=== PATIENT | female | born 1990 | race Two or more races ===

== ENCOUNTER → 2021-07-12 08:37 | Outpatient (CLI) | payer OTHER, SELFPAY | PROVIDERS: PCP Internal Medicine; Referring Provider Internal Medicine; Visit Provider Internal Medicine | DX: E55.9 Vitamin D deficiency, unspecified (principal) | CPT/HCPCS: 36415; 82306 ==

== ENCOUNTER → 2021-07-28 13:51 | Outpatient (CLI) | payer OTHER, SELFPAY ==
--- NOTE | 2021-07-28 13:54 | US_ITS ---
STUDY: ULTRASOUND OF THE FEMALE PELVIS - COMPLETE REASON FOR EXAM: Female, 31 years old. AUB LMP: Unknown. TECHNIQUE: Transabdominal and Transvaginal TECHNICAL QUALITY: Adequate. COMPARISON: None. FINDINGS: The uterus is anteverted and is in a midline position. The uterus measures 7.2 cm x 4.5 cm x 3.6 cm. Normal uterine cervix. The endometrium measures 3.8 mm in thickness, and is hyperechoic. There is no demonstrated endometrial mass. There is no demonstrated myometrial mass. I.U.D. - The patient does have an I.U.D. The right ovary is visualized. The right ovary measures 2.9 cm x 2.3 cm x 1.5 cm. There is no right ovarian cyst or ovarian mass. There is no visualized right adnexal mass or complex lesion. There is normal arterial and normal venous vascularity. The left ovary is visualized. The left ovary measures 2.5 cm x 1.9 cm x 1.0 cm. There is no left ovarian cyst or ovarian mass. There is no visualized left adnexal mass or complex lesion. There is normal arterial and normal venous vascularity. There is minimal fluid in the cul-de-sac. The pre void volume of the bladder was 445 ml. US/Pelvic (Non ) IMPRESSION: Normal female pelvis. Electronically Signed: Damaso Khan MD at 15:25 EDT , Service support ,
--- NOTE | 2021-07-28 13:54 | US_ITS ---
STUDY: ULTRASOUND OF THE FEMALE PELVIS - COMPLETE REASON FOR EXAM: Female, 31 years old. AUB LMP: Unknown. TECHNIQUE: Transabdominal and Transvaginal TECHNICAL QUALITY: Adequate. COMPARISON: None. FINDINGS: The uterus is anteverted and is in a midline position. The uterus measures 7.2 cm x 4.5 cm x 3.6 cm. Normal uterine cervix. The endometrium measures 3.8 mm in thickness, and is hyperechoic. There is no demonstrated endometrial mass. There is no demonstrated myometrial mass. I.U.D. - The patient does have an I.U.D. The right ovary is visualized. The right ovary measures 2.9 cm x 2.3 cm x 1.5 cm. There is no right ovarian cyst or ovarian mass. There is no visualized right adnexal mass or complex lesion. There is normal arterial and normal venous vascularity. The left ovary is visualized. The left ovary measures 2.5 cm x 1.9 cm x 1.0 cm. There is no left ovarian cyst or ovarian mass. There is no visualized left adnexal mass or complex lesion. There is normal arterial and normal venous vascularity. There is minimal fluid in the cul-de-sac. The pre void volume of the bladder was 445 ml. US/Transvaginal Non- IMPRESSION: Normal female pelvis. Electronically Signed: Damaso Khan MD at 15:25 EDT , Service support ,
== END ==
PROVIDERS: PCP Internal Medicine; Referring Provider Obstetrics & Gynecology; Visit Provider Obstetrics & Gynecology
DX: N93.9 Abnormal uterine and vaginal bleeding, unspecified (principal)
CPT/HCPCS: 76830; 76856

== ENCOUNTER → 2021-08-08 | Outpatient (CLI) | payer OTHER, SELFPAY ==
[2021-08-11 14:13] LABS: HPV Reflexed? NOT INDICATED
== END | disposition home or self-care (01) ==
PROVIDERS: PCP Internal Medicine; Referring Provider Obstetrics & Gynecology; Visit Provider Obstetrics & Gynecology
DX: Z12.4 Encounter for screening for malignant neoplasm of cervix (principal)
CPT/HCPCS: 88175; G0145

== ENCOUNTER → 2021-08-30 13:24 | Outpatient (CLI) | payer OTHER, SELFPAY ==
[2021-08-30 14:40] LABS: Absolute Lymphocyte Count 2.05 X10^3/uL (0.83-4.51); Absolute Neutrophil Count 4.6 X10^3/uL (2.0-7.7); Basophil# 0.04 X10^3/uL; Basophil% 0.5 % (0-1); Eosinophil# 0.08 X10^3/uL; Eosinophils% 1.1 % (0-5); Hematocrit 41.4 % (37-47); Lymphocyte # 2.05 X10^3/ul (0.83-4.51); Lymphocyte % 27.7 % (19-41); Mean Corp Hgb Conc 33.8 g/dL (32-36); Mean Corpuscular Hgb 31.7 pg (27.0-32.0); Mean Corpuscular Volume 93.7 fL (81-99); Mean Platelet Vol. 9.8 fl (6.2-12.0); Monocyte# 0.57 X10^3/uL; Monocyte% 7.7 % (0-10); NRBC Flagged by Analyzer 0 % (0-5); Neutrophil # 4.63 X10^3/uL (2.7-7.7); Neutrophil % 62.6 % (47-70); Platelet Count 260 K/mm3 (150-450); RBC Distribution Width CV 12.7 % (11.6-14.6); RBC Distribution Width SD 43.8 fl (35.1-43.9); Red Blood Count 4.42 M/mm3 (4.2-5.4); White Blood Count 7.4 K/mm3 (4.4-11.0)
[2021-08-30 15:14] LABS: Estradiol 92.6 pg/mL; Follicle Stimulating Hormone 5.1 mIU/mL; Thyroid Stim Hormone (TSH) 1.11 uIU/mL (0.358-3.74)
[2021-09-02 12:37] LABS: Testosterone Free 2.5 pg/mL (0.0-4.2)
== END ==
PROVIDERS: PCP Internal Medicine; Referring Provider Obstetrics & Gynecology; Visit Provider Obstetrics & Gynecology
DX: N93.9 Abnormal uterine and vaginal bleeding, unspecified (principal); Z13.29 Encounter for screening for other suspected endocrine disorder
CPT/HCPCS: 36415; 82627; 82670; 83001; 84402; 84443; 85025; 82626

== ENCOUNTER → 2022-03-27 | Outpatient (CLI) | payer OTHER, SELFPAY ==
[2022-03-27 18:35] LABS: hCG Titer Quant., Serum 11879 mIU/mL (1-3)
== END | disposition home or self-care (01) ==
PROVIDERS: PCP Internal Medicine; Referring Provider Obstetrics & Gynecology; Visit Provider Obstetrics & Gynecology
DX: N96 Recurrent pregnancy loss (principal)
CPT/HCPCS: 36415; 84702

== ENCOUNTER → 2022-04-11 | Outpatient (CLI) | payer OTHER, SELFPAY ==
[2022-04-11 18:10] LABS: Amphetamine Urine VISTA NEGATIVE (<1000 ng/mL); Barbiturate Urine VISTA NEGATIVE (< 200 ng/mL); Benzodiazepine Urine VISTA NEGATIVE (< 200 ng/mL); Cocaine Urine VISTA NEGATIVE (< 300 ng/mL); Ecstacy Urine VISTA NEGATIVE (< 500 ng/mL); Methadone Urine VISTA NEGATIVE (< 300 ng/mL); PCP Urine VISTA NEGATIVE (< 25 ng/mL); THC Urine VISTA NEGATIVE (< 50 ng/mL); Vista UDS pH Range 6
[2022-04-17 11:26] LABS: Chlamydia By Nucleic Acid AMP Negative (Negative)
[2022-04-17 18:12] LABS: Gonococcus By Nucleic Acid AMP Negative (Negative)
== END | disposition home or self-care (01) ==
PROVIDERS: PCP Internal Medicine; Visit Provider Obstetrics & Gynecology
DX: Z34.90 Encounter for supervision of normal pregnancy, unspecified, unspecified trimester (principal)
CPT/HCPCS: 80307; 87086; 87088; 87491; 87591

== ENCOUNTER → 2022-04-28 | Outpatient (CLI) | payer OTHER, SELFPAY ==
[2022-04-28 15:14] LABS: Absolute Lymphocyte Count 1.81 X10^3/uL (0.83-4.51); Absolute Neutrophil Count 6.3 X10^3/uL (2.0-7.7); Basophil# 0.03 X10^3/uL; Basophil% 0.3 % (0-1); Eosinophil# 0.08 X10^3/uL; Eosinophils% 0.9 % (0-5); Hematocrit 36.6 % (37-47); Hemoglobin 12.6 g/dL (12.0-15.0); Lymphocyte # 1.81 X10^3/ul (0.83-4.51); Lymphocyte % 20.3 % (19-41); Mean Corp Hgb Conc 34.4 g/dL (32-36); Mean Corpuscular Volume 92.9 fL (81-99); Mean Platelet Vol. 9.9 fl (6.2-12.0); Monocyte# 0.69 X10^3/uL; Monocyte% 7.8 % (0-10); NRBC Flagged by Analyzer 0 % (0-5); Neutrophil # 6.26 X10^3/uL (2.7-7.7); Neutrophil % 70.4 % (47-70); Platelet Count 226 K/mm3 (150-450); RBC Distribution Width CV 12.9 % (11.6-14.6); RBC Distribution Width SD 44.2 fl (35.1-43.9); Red Blood Count 3.94 M/mm3 (4.2-5.4); White Blood Count 8.9 K/mm3 (4.4-11.0)
[2022-04-28 16:36] LABS: HIV - WCH Non-Reactive (Nonreactive); Hepatitis B Surface Antigen Non-Reactive (Nonreactive); Hepatitis C Antibody Non-Reactive (Nonreactive); Rubella IgG Reactive (Nonreactive); Syphilis Antibodies Non-reactive
== END | disposition home or self-care (01) ==
LOC: LAB 14:17
PROVIDERS: PCP Internal Medicine; Referring Provider Obstetrics & Gynecology; Visit Provider Obstetrics & Gynecology
DX: Z34.90 Encounter for supervision of normal pregnancy, unspecified, unspecified trimester (principal)
CPT/HCPCS: 36415; 85025; 86703; 86762; 86780; 86803; 86850; 86900; 86901; 87340

== ENCOUNTER → 2022-05-03 | Outpatient (CLI) | payer OTHER, SELFPAY ==
--- NOTE | 2022-05-03 18:19 | US_ITS ---
STUDY: FIRST TRIMESTER OBSTETRICAL ULTRASOUND (TWINS) REASON FOR EXAM: Female, 32 years old. BLEEDING / TWINS TECHNIQUE: Transvaginal US was obtained to better visualized the ovaries. TECHNICAL QUALITY: Adequate. PRIOR ULTRASOUND: None. FINDINGS: There are two demonstrated intrauterine gestational sacs. There is a single identified placenta, without a ?twin peak? sign, indicating a probable monochorionic . There is a thin amniotic membrane (1mm), indicating a probable monoamniotic . The estimated gestation age (EGA) by LMP is 10 weeks, 6 days. The estimated date of delivery (DEWEY) by LMP is 1.19.23. BABY A The mean sac diameter (MSD) measure 48mm, indicating an estimated gestational age (EGA) of 10 weeks, 2 days. There is no demonstrated yolk sac. There is visualization of an embryo. The crown-rump length (CRL) measures 47mm, indicating an estimated gestational age (EGA) of 11 weeks, 2 days. The estimated gestation age (EGA) by US is 10 weeks, 5 days. The estimated date of delivery (DEWEY) by US is 1.20.23. There is demonstrated cardiac activity with a heart rate 173 bpm. BABY B The mean sac diameter (MSD) measure 49 mm, indicating an estimated gestational age (EGA) of 10 weeks, 4 days. There is no demonstrated yolk sac. There is visualization of an embryo. The crown-rump length (CRL) measures 41 mm, indicating an estimated gestational age (EGA) of 10 weeks, 5 days. The estimated gestation age (EGA) by US is 10 weeks, 4 days. The estimated date of delivery (DEWEY) by US is 1.21.23. There is demonstrated cardiac activity with a heart rate 180 bpm. MATERNAL ANATOMY The uterus measures 10 x 8.9 cm. There is no demonstrated uterine fibroid. The cervix is closed. The right ovary measures 3.2 cm. There is no right ovarian cyst. There is no visualized right adnexal mass or complex lesion. The left ovary measures 4.3 cm. Simple cyst measures 19 mm. No follow-up required. There is no visualized left adnexal mass or complex lesion. There is no fluid in the cul de sac. US/Init OB < 14Wks US IMPRESSION: Twin live . BABY A There is demonstrated cardiac activity with a heart rate 173 bpm. BABY B There is demonstrated cardiac activity with a heart rate 180 bpm. Electronically Signed: Bruno Engle MD at 19:45 EDT ,
== END | disposition home or self-care (01) ==
PROVIDERS: PCP Internal Medicine; Visit Provider Obstetrics & Gynecology
DX: O46.90 Antepartum hemorrhage, unspecified, unspecified trimester (principal)
CPT/HCPCS: 76801

== ENCOUNTER → 2022-05-04 | Outpatient (CLI) | payer OTHER, SELFPAY ==
[2022-05-04 15:44] LABS: NATERA MAILED SPECIMEN
== END | disposition home or self-care (01) ==
LOC: LAB 14:41
PROVIDERS: PCP Internal Medicine; Visit Provider Obstetrics & Gynecology
DX: O28.5 Abnormal chromosomal and genetic finding on antenatal screening of mother (principal)
CPT/HCPCS: 36415

== ENCOUNTER 2022-07-27 12:20 | Outpatient (CLI) | payer OTHER, SELFPAY ==
[2022-07-27 12:22] VITALS: BP 118/64; PULSE 51; TEMP 36.7; O2SAT 100
[2022-07-27 12:38] VITALS: BMI 23.8
[2022-07-27] MEDS: Betamethasone/Betamethasone 30 MG/5 ML Vial 12 MG IM (12:45)
--- NOTE | 2022-07-28 09:54 | OB.TRI.PN ---
Progress Notes Date of Service: 07/27/22 Progress Note: celestone given for prematurity
== END 2022-07-27 12:50 | disposition home or self-care (01) ==
LOC: WPOUT 12:23 → WP 12:24
PROVIDERS: PCP Internal Medicine; Referring Provider Obstetrics & Gynecology; Visit Provider Obstetrics & Gynecology
DX: O47.9 False labor, unspecified (principal)
CPT/HCPCS: 96372; 99218; G0378; J0702

== ENCOUNTER 2022-07-28 12:15 | Outpatient (CLI) | payer OTHER, SELFPAY ==
[2022-07-28] MEDS: Betamethasone/Betamethasone 30 MG/5 ML Vial 12 MG IM (12:39)
--- NOTE | 2022-07-31 00:21 | OB.TRI.PN ---
Progress Notes Date of Service: 07/28/22 Progress Note: celestone given for prematurity
== END 2022-07-28 12:45 | disposition home or self-care (01) ==
LOC: WPOUT 12:19 → WP 12:27
PROVIDERS: PCP Internal Medicine; Referring Provider Obstetrics & Gynecology; Visit Provider Obstetrics & Gynecology
DX: O60.02 Preterm labor without delivery, second trimester (principal); Z3A.24 24 weeks gestation of pregnancy
CPT/HCPCS: 96372; 99218; G0378; J0702

== ENCOUNTER → 2022-08-07 | Outpatient (CLI) | payer OTHER, SELFPAY ==
--- NOTE | 2022-08-07 16:39 | US_ITS ---
INDICATION: twin gestation -- Weekly BPP on Mondays beginning 08/05/22 EXAMINATION: Ultrasound US Biophysical Profile W/O Nonst Ultrasound additional gestation greater than 14 weeks. TECHNIQUE: Transabdominal pelvic ultrasound was performed with biophysical profile for twin gestation. Multiple still and cine images obtained. COMPARISON: May 03, 2022. Provided EGA: 24 weeks 4 days correlating with 11/23/2022 delivery date FINDINGS: INTRAUTERINE GESTATION(s): Twin live gestation. CERVIX: Cervix is obscured by cranial shadow. Fetus A: HEART MOTION is 147 bpm. AMNIOTIC FLUID: Deepest vertical pocket 2.9 cm PLACENTA: Posterior, grade 1 without evidence of abruption or previa. PRESENTATION: Cephalic BIOPHYSICAL PROFILE (BPP): 6/8 -- Breathin/2. -- Movement: 2/2. -- Tone: 2/2. --DEANNA: 2/2. Fetus B: HEART MOTION is 145 bpm. AMNIOTIC FLUID: Deepest vertical pocket 3.9 cm PLACENTA: Posterior, grade 1 without evidence of abruption or previa. PRESENTATION: Cephalic BIOPHYSICAL PROFILE (BPP): 8/8 -- Breathin/2. -- Movement: 2/2. -- Tone: 2/2. --DEANNA: 2/2. IMPRESSION: Live twin gestation with normal heart rate. Abnormal twin A biophysical profile 6 out of 8 with 0 for breathing. Normal twin B biophysical profile. Placenta is posterior, without appreciable separation on ultrasound images. Electronically Signed: Charles Ribera MD at 4:04 EDT , INDICATION: twin gestation -- Weekly BPP on Mondays beginning 08/05/22 EXAMINATION: Ultrasound US Biophysical Profile W/O Nonst Ultrasound additional gestation greater than 14 weeks. TECHNIQUE: Transabdominal pelvic ultrasound was performed with biophysical profile for twin gestation. Multiple still and cine images obtained. COMPARISON: May 03, 2022. Provided EGA: 24 weeks 4 days correlating with 11/23/2022 delivery date FINDINGS: INTRAUTERINE GESTATION(s): Twin live gestation. CERVIX: Cervix is obscured by cranial shadow. Fetus A: HEART MOTION is 147 bpm. AMNIOTIC FLUID: Deepest vertical pocket 2.9 cm PLACENTA: Posterior, grade 1 without evidence of abruption or previa. PRESENTATION: Cephalic BIOPHYSICAL PROFILE (BPP): 04/12 -- Breathin/2. -- Movement: 2/2. -- Tone: 2/2. --DEANNA: 2/2. Fetus B: HEART MOTION is 145 bpm. AMNIOTIC FLUID: Deepest vertical pocket 3.9 cm PLACENTA: Posterior, grade 1 without evidence of abruption or previa. PRESENTATION: Cephalic BIOPHYSICAL PROFILE (BPP): 06/12 -- Breathin/2. -- Movement: 2/2. -- Tone: 2/2. --DEANNA: 2/2. US/Biophysical Prof W/O Non Stres IMPRESSION: Live twin gestation with normal heart rate.. Abnormal twin A biophysical profile 6 out of 8 with 0 for breathing. Normal twin B biophysical profile. Placenta is posterior, without appreciable separation on ultrasound images. Electronically Signed: Charles Ribera MD at 4:04 EDT ,
--- NOTE | 2022-08-07 17:48 | US_ITS ---
INDICATION: twin gestation -- Weekly BPP on Mondays beginning 08/05/22 EXAMINATION: Ultrasound US Biophysical Profile W/O Nonst Ultrasound additional gestation greater than 14 weeks. TECHNIQUE: Transabdominal pelvic ultrasound was performed with biophysical profile for twin gestation. Multiple still and cine images obtained. COMPARISON: May 03, 2022. Provided EGA: 24 weeks 4 days correlating with 11/23/2022 delivery date FINDINGS: INTRAUTERINE GESTATION(s): Twin live gestation. CERVIX: Cervix is obscured by cranial shadow. Fetus A: HEART MOTION is 147 bpm. AMNIOTIC FLUID: Deepest vertical pocket 2.9 cm PLACENTA: Posterior, grade 1 without evidence of abruption or previa. PRESENTATION: Cephalic BIOPHYSICAL PROFILE (BPP): 6/8 -- Breathin/2. -- Movement: 2/2. -- Tone: 2/2. --DEANNA: 2/2. Fetus B: HEART MOTION is 145 bpm. AMNIOTIC FLUID: Deepest vertical pocket 3.9 cm PLACENTA: Posterior, grade 1 without evidence of abruption or previa. PRESENTATION: Cephalic BIOPHYSICAL PROFILE (BPP): 8/8 -- Breathin/2. -- Movement: 2/2. -- Tone: 2/2. --DEANNA: 2/2. IMPRESSION: Live twin gestation with normal heart rate. Abnormal twin A biophysical profile 6 out of 8 with 0 for breathing. Normal twin B biophysical profile. Placenta is posterior, without appreciable separation on ultrasound images. Electronically Signed: Charles Ribera MD at 4:04 EDT , INDICATION: twin gestation -- Weekly BPP on Mondays beginning 08/05/22 EXAMINATION: Ultrasound US Biophysical Profile W/O Nonst Ultrasound additional gestation greater than 14 weeks. TECHNIQUE: Transabdominal pelvic ultrasound was performed with biophysical profile for twin gestation. Multiple still and cine images obtained. COMPARISON: May 03, 2022. Provided EGA: 24 weeks 4 days correlating with 11/23/2022 delivery date FINDINGS: INTRAUTERINE GESTATION(s): Twin live gestation. CERVIX: Cervix is obscured by cranial shadow. Fetus A: HEART MOTION is 147 bpm. AMNIOTIC FLUID: Deepest vertical pocket 2.9 cm PLACENTA: Posterior, grade 1 without evidence of abruption or previa. PRESENTATION: Cephalic BIOPHYSICAL PROFILE (BPP): 04/12 -- Breathin/2. -- Movement: 2/2. -- Tone: 2/2. --DEANNA: 2/2. Fetus B: HEART MOTION is 145 bpm. AMNIOTIC FLUID: Deepest vertical pocket 3.9 cm PLACENTA: Posterior, grade 1 without evidence of abruption or previa. PRESENTATION: Cephalic BIOPHYSICAL PROFILE (BPP): 06/12 -- Breathin/2. -- Movement: 2/2. -- Tone: 2/2. --DEANNA: 2/2. US/Biophysical Prof W/O Non Stres IMPRESSION: Live twin gestation with normal heart rate.. Abnormal twin A biophysical profile 6 out of 8 with 0 for breathing. Normal twin B biophysical profile. Placenta is posterior, without appreciable separation on ultrasound images. Electronically Signed: Chalres Ribera MD at 4:04 EDT ,
== END | disposition home or self-care (01) ==
LOC: OPUS 16:38 → US 16:38
PROVIDERS: PCP Internal Medicine; Referring Provider Obstetrics & Gynecology; Visit Provider Obstetrics & Gynecology
DX: O43.122 Velamentous insertion of umbilical cord, second trimester (principal); O43.022 Fetus-to-fetus placental transfusion syndrome, second trimester; O30.002 Twin pregnancy, unspecified number of placenta and unspecified number of amniotic sacs, second trimester; Z3A.24 24 weeks gestation of pregnancy
CPT/HCPCS: 76819

== ENCOUNTER 2022-08-08 13:10 | Outpatient (CLI) | payer OTHER, SELFPAY ==
[2022-08-08 13:37] VITALS: PULSE 69; O2SAT 98
[2022-08-08 13:38] VITALS: BP 128/69; PULSE 68; TEMP 37.3
[2022-08-08 13:42] VITALS: BMI 24.0
--- NOTE | 2022-08-08 13:47 | US_ITS ---
STUDY: OBSTETRICAL ULTRASOUND - BIOPHYSICAL PROFILE REASON FOR EXAM: Female, 32 years old abnormal ultrasound. Possible twin to twin transfusion. BPP yesterday baby A is 8/, baby B 6/, no breathing. LMP: 02/16/2022 PRIOR ULTRASOUND: 08/07/2022 TECHNIQUE: Transabdominal TECHNICAL QUALITY: Adequate. FINDINGS: There is a twin intrauterine . Baby A lies to the maternal left in cephalic presentation.. There is demonstrated cardiac activity with a heart rate of 147 bpm. There is a normal amniotic fluid volume. The largest amniotic fluid pocket measures 6.2 cm. The placenta is posterior in location and is not low lying. There are Grade 1 placental changes. Age by LMP: 24 weeks, 5 days. DEWEY by LMP: 11/23/2022. age by prior US: 24 weeks, 5 days. DEWEY by prior US: 11/23/2022. BIOPHYSICAL PROFILE: Breathing Movements (FBM): 2 Gross Body Movements (GBM): 2 Tone (FT): 2 Amniotic Fluid Volume (AFV): 2 TOTAL SCORE: 8 / 8 Baby B lies on the maternal right in a transverse position.. There is demonstrated cardiac activity with a heart rate of 136 bpm. There is a normal amniotic fluid volume. The largest amniotic fluid pocket measures 4.1 cm. . The placenta is posterior in location and is not low lying. There are Grade 1 placental changes. Age by LMP: 24 weeks, 5 days. DEWEY by LMP: 11/23/2022.. age by prior US: 24 weeks, 5 days. DEWEY by prior US: 11/23/2022.. BIOPHYSICAL PROFILE: Breathing Movements (FBM): 2 Gross Body Movements (GBM): 2 Tone (FT): 2 Amniotic Fluid Volume (AFV): 2 TOTAL SCORE: 8 / 8 US/Biophysical Prof W/O Non Stres IMPRESSION: 1. Normal biophysical profile for baby A of 06/12. 2. Normal biophysical profile for baby B of 06/12. Electronically Signed: Troy Aguayo DO at 18:37 EDT ,
[2022-08-08 14:49] VITALS: BP 119/74; PULSE 67; TEMP 37.3
[2022-08-08 17:08] VITALS: BP 115/72; PULSE 60; TEMP 37.4
--- NOTE | 2022-08-08 18:45 | OB.TRI.HP_ITS ---
HPI - General General Date of Admission: 08/08/22 HPI Narrative ALAINA WOLFE, is a 32 y/o who presents to L&D for monitoring due to finding on bpp yesterday of 04/12. She left prior to receiving the results and was asked to return to L&D for further monitoring and repeat BPP. Maternal Data Information DEWEY Calculator Estimated Delivery Date Method Current WG Current Estimate 11/23/22 LMP (Certain) 24w 5d Other Estimates 11/24/22 Ultrasound #1 24w 4d # 2 PFSH PFSH Medical History History of miscarriage Preventative health care Seasonal allergies Vitamin D deficiency Home Medications vitamin #56-iron 35 mg and 5 mg-folic acid 1 mg-dha capsule 1 cap PO DAILY 03/28/22 [History Last Taken 08/07/22 22:00 2 gummies] aspirin 81 mg chewable tablet 81 mg PO DAILY 08/08/22 [History Last Taken 08/07/22 22:00 81 mg] docusate sodium 100 mg capsule (Colace) 100 mg PO DAILY 08/08/22 [History Last Taken 08/07/22 22:00 100 mg] folic acid 1 mg tablet 1 mg PO DAILY 08/08/22 [History Last Taken 08/07/22 22:00 1 mg] Allergy/AdvReac Type Severity Reaction Status Date / Time 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 Family History Father Hypertension Surgical History H/O breast augmentation History of total right hip arthroplasty Social History household members: family number of children: 1 current occupational status: employed current occupation: [employer] Smoking Status: Never smoker second hand exposure: No alcohol intake: never substance use type: does not use what type of physical activity do you participate in: weight training and other details: cardio frequency: 5-6 times per week seatbelt use: always do you feel safe at home: Yes additional social history: [employer]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 Date Name GA/Weeks Outcome Route Bth Weight Gen Labor Lgth Anesthesia Del Anand Provider FOB Erika Villalta 09/03/17 37 live - full term 7lbs 7oz M james 3 hours epidural Nelly Flynn Unknown 11/2021 SAB no intervention Delivery Date: Last Updated by: Zohra Teran post hemorrhage Visit Details Expected Delivery Route/Plan Labor Preferences- CB/BF classes: [] labor support person: [] labor intervention preferences: [] pain management options preferred: [] cut cord/dad catch: [] : [] PP control planned: [] discussed possible routes of delivery and associated risks: [] special requests: [] Plans Covid status: [] Flu vaccine: [ Tdap vaccine: [] Rhogam: [] LARC form signed: [] Problem list reviewed and updated with the most current plan of care details and appropriate orders placed. Relevant counseling for the gestational age provided. Continue routine care and follow up unless otherwise noted in visit notes/problem list details OB Flowsheet Initial Weight: Not Recorded Date -?-?-?-?-?-?-?-?-?-?-?-?- EGA Weight BP Urine Prot -?-?-?-?-?-?-?-?-?-?-?-?- Glucose FHR FuHt Pres Dilation -?-?-?-?-?-?-?-?-?-?-?-?- Effaced St Visit Note 04/28/22 -?-?-?-?-?-?-?-?-?-?-?-?- 10w 1d 138 lb 6 oz 118/66 Nega tive -?-?-?-?-?-?-?-?-?-?-?-?- Negative A 150 -?-?-?-?-?-?-?-?-?-?-?-?- B 153 A -?-?--?-?-?-?-?-?-?-?-?-?- B -?-?-?-?-?-?-?-?-?-?-?-?- A -?-?-?-?-?-?-?-?-?-?-?-?- B A JV- CRL consiste nt with 10 weeks 2 days. sending to [facility] for NT if they can get her in to MFM. baby asa and extra folic acid discussed. -?-?-?-?-?-?-?-?-?-?-?-?- B 05/12/22 -?-?-?-?-?-?-?-?-?-?-?-?- 12w 1d 139 lb 8 oz 114/68 Nega tive -?-?-?-?-?-?-?-?-?-?-?-?- Negative A 160 -?-?-?-?-?-?-?-?-?-?-?-?- B 165 A -?-?-?-?-?-?-?-?-?-?-?-?- B -?-?-?-?-?-?-?-?-?-?-?-?- A -?-?-?-?-?-?-?-?-?-?-?-?- B A SM- discussed NI PT await results repeat US -?-?-?-?-?-?-?-?-?-?-?-?- B 06/09/22 -?-?-?-?-?-?-?-?-?-?-?-?- 16w 1d 144 lb 6 oz 108/62 Nega tive -?-?-?-?-?-?-?-?-?-?-?-?- Negative A 160 -?-?-?-?-?-?-?-?-?-?-?-?- B 155 A -?-?-?-?-?-?-?-?-?-?-?-?- B -?-?-?-?-?-?-?--?-?-?-?-?- A -?-?-?-?-?-?-?-?-?-?-?-?- B A JV- plan for Shira ry other week scans with mfm to rule out ttts -?-?-?-?-?-?-?-?-?-?-?-?- B 07/14/22 -?-?-?-?-?-?-?-?-?-?-?-?- 21w 1d 152 lb 122/80 -?-?-?-?-?-?-?-?-?-?-?-?- A 160 -?-?-?-?-?-?-?-?-?-?-?-?- B 145 A -?-?-?-?-?-?-?-?-?-?-?-?- B -?-?-?-?-?-?-?-?-?-?-?-?- A -?-?-?-?-?-?-?-?-?-?-?-?- B A Sm- no vb lof go od fm no regular ctx -?-?-?-?-?-?-?-?-?-?-?-?- B ROS Constitutional Constitutional: Reports systems reviewed and no addt'l complaints, except as documented Gastrointestinal Gastrointestinal: Denies bloating, constipation, cramping, diarrhea, nausea or vomiting Genitourinary Genitourinary: Reports other Details: Denies vaginal odor, vaginal bleeding, or vaginal discharge ; Denies difficulty urinating or flank pain Physical Exam HEENT normocephalic Resp normal respiratory effort and normal air movement no CVA tenderness Extremity normal to inspection General Extremity: edema bilateral (trace ) NST FHR Rate Baby A Baseline: 150 Variability:: Moderate Accelerations:: 15 x 15 and 10 x 10 Decelerations:: None NST Reactive:: Yes FHR Category:: Category I FHR Rate Baby B Baseline: 140 Variability:: Moderate Accelerations:: 10 x 10 Decelerations:: None NST Reactive:: Yes FHR Category:: Category I Uterine Activity:: no contractions noted Assessment & Plan (1) Velamentous insertion of umbilical cord: COMMENT: in twin b (2) 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 Twin a with thickened NT and twin b with intermittent absent end diastolic flow at 18 wks (3) Abnormal ultrasound: COMMENT: one twin increased NT, low risk NIPT, being monitored by M for TTTS, continue every wk evaluation for twin-twin transfusion syndrome and growth every 4 wks, testing 1x wkly starting @ 28 wks.Delivery @ 37 weeks, 07/03 TTTS 33.8% discordance, echo @ 22 wks, BPP weekly on Mondays begin 08/05 PLAN: plan to transfer care to [facility] going forward (4) Supervision of high-risk : COMMENT: PRR DEWEY:11/23/22 surprise gender twins PC:Pawan. Sp:Dr Gee Le (5) Monochorionic diamniotic twin gestation: COMMENT: seen at NOB visit. MFM consult planned baby asa and double FA and IRon. (6) : QUALIFIERS: Weeks of gestation: 21 weeks Qualified Code(s): Z3A.21 - 21 weeks gestation of COMMENT: low risk genetic and declined carrier screen PLAN: Plan reactive nsts and bpp today of 06/12. plan going forward is to discuss with MFM in [place] to hopefully transfer outpatient to assume care due to high risk . Charges/Coding Multi Select Codes Visit Charges Office Visit/Consults: 68840 OV L3 Est Urinary/Genital Urinary/Genital CPT Codes: 41765-39 non-stress test Interp
== END 2022-08-08 18:10 | disposition home or self-care (01) ==
LOC: WPOUT 13:14 → WP 13:15
PROVIDERS: PCP Internal Medicine; Visit Provider Obstetrics & Gynecology
DX: O30.003 Twin pregnancy, unspecified number of placenta and unspecified number of amniotic sacs, third trimester (principal); O43.023 Fetus-to-fetus placental transfusion syndrome, third trimester; O09.10 Supervision of pregnancy with history of ectopic pregnancy, unspecified trimester; Z3A.37 37 weeks gestation of pregnancy; Z79.2 Long term (current) use of antibiotics; Z79.82 Long term (current) use of aspirin
CPT/HCPCS: 59025; 59050; 76819; 99218; G0378

== ENCOUNTER → 2022-08-18 | Outpatient (CLI) | payer OTHER, SELFPAY ==
[2022-08-18 12:36] LABS: Hematocrit 39.3 % (37-47); Hemoglobin 13.5 g/dL (12.0-15.0); Mean Corp Hgb Conc 34.4 g/dL (32-36); Mean Corpuscular Hgb 34.1 pg (27.0-32.0); Mean Corpuscular Volume 99.2 fL (81-99); Mean Platelet Vol. 9.9 fl (6.2-12.0); Platelet Count 220 K/mm3 (150-450); RBC Distribution Width CV 13.4 % (11.6-14.6); RBC Distribution Width SD 49.2 fl (35.1-43.9); Red Blood Count 3.96 M/mm3 (4.2-5.4); White Blood Count 10.2 K/mm3 (4.4-11.0)
[2022-08-18 12:44] LABS: Protein, Urine (Random) < 6.0 mg/dL (<11.9); Protein:Creat Ratio 327 mg/g CRE (0-200)
[2022-08-18 13:18] LABS: ALB/GLOB Ratio 0.7 RATIO (0.9-2.4); AST(SGOT) 18 U/L (15-37); Alanine Aminotransfer ALT/SGPT 22 U/L (13-56); Albumin, Serum 2.6 g/dL (3.2-5.0); Alkaline Phosphatase 122 U/L (45-117); Anion Gap 7 (5-15); BUN 13 mg/dL (7-18); BUN/Creat Ratio 23.9 RATIO (10-20); Calcium,Total 8.6 mg/dL (8.5-10.1); Chloride 108 mmol/L (98-107); Creatinine, Serum 0.54 mg/dL (0.55-1.02); EST Glomerular Filtration Rate 139 mL/min (>60); Est Glom Filt Rate - Afr Amer 169 mL/min (>60); Globulin 3.7 g/dL (2.2-4.2); Glucose 101 mg/dL (74-106); Glucose Challenge Gest 1H 50g 101 mg/dL (70-140); LDH 176 U/L (84-246); Potassium 4.1 mmol/L (3.5-5.1); Protein, Total 6.3 g/dL (6.4-8.2); Sodium Level 139 mmol/L (136-145)
== END | disposition home or self-care (01) ==
LOC: LAB 11:15
PROVIDERS: PCP Internal Medicine; Visit Provider Nurse Practitioner
DX: O09.892 Supervision of other high risk pregnancies, second trimester (principal); O36.5922 Maternal care for other known or suspected poor fetal growth, second trimester, fetus 2; Z13.1 Encounter for screening for diabetes mellitus
CPT/HCPCS: 36415; 80053; 82570; 82950; 83615; 84156; 84550; 85027

== ENCOUNTER → 2023-04-20 | Outpatient (CLI) | payer OTHER, SELFPAY ==
--- NOTE | 2023-04-20 13:03 | US_ITS ---
STUDY: ULTRASOUND OF THE FEMALE PELVIS - COMPLETE REASON FOR EXAM: Female, 33 years old. IUD placement LMP: April 03, 2023. TECHNIQUE: Transvaginal TECHNICAL QUALITY: Adequate. COMPARISON: None. FINDINGS: The uterus is anteverted and is in a midline position. The uterus measures 8.3 cm x 4.8 synovitis 3.6 cm. Normal uterine cervix. The endometrium measures 8 mm in thickness, and is hyperechoic. There is no demonstrated endometrial mass. There is no demonstrated myometrial mass. I.U.D. - The patient does have an I.U.D.. The IUD is in good position. The right ovary is visualized. The right ovary measures 3.7 cm x 3 cm x 1.4 cm. There is no right ovarian cyst or ovarian mass. There is no visualized right adnexal mass or complex lesion. There is normal arterial and normal venous vascularity. The left ovary is visualized. The left ovary measures 3.2 cm x 2.25 x 1.6 cm. There is no left ovarian cyst or ovarian mass. There is no visualized left adnexal mass or complex lesion. There is normal arterial and normal venous vascularity. There is no fluid in the cul-de-sac. US/Transvaginal Non- IMPRESSION: The IUD is in good position. Electronically Signed: Damaso Khan MD at 14:37 EDT ,
== END | disposition home or self-care (01) ==
LOC: US 13:02
PROVIDERS: PCP Internal Medicine; Referring Provider Obstetrics & Gynecology; Visit Provider Obstetrics & Gynecology
DX: Z30.9 Encounter for contraceptive management, unspecified (principal)
CPT/HCPCS: 76830

== ENCOUNTER → 2023-07-21 | Outpatient (CLI) | payer OTHER, SELFPAY ==
--- NOTE | 2023-07-21 09:03 | MRI_ITS ---
INDICATION: pain EXAMINATION: MRI - LEFT MR Knee W/O Contrast TECHNIQUE: Multiplanar and multisequence MR images of the LEFT knee. IV Contrast Dosage and Agent: None. COMPARISON: FINDINGS: BONE: No fracture or abnormal bone marrow signal. JOINT: No synovial hypertrophy, or intra-articular body. Small retropatellar joint effusion. MUSCLES: Unremarkable. MENISCI: Medial and lateral menisci unremarkable. CRUCIATE LIGAMENTS: Anterior and posterior cruciate ligaments are intact. COLLATERAL LIGAMENTS: Medial collateral ligament and lateral collateral ligamentous complex, inclusive of the popliteal tendon, are intact. CARTILAGE: Articular cartilage intact. OTHER SOFT TISSUES: Unremarkable. No popliteal cyst. MRI/Lower Ext Joint Only (Routine) IMPRESSION: Small retropatellar joint effusion. Electronically Signed: Benji Juarez MD at 10:46 EDT ,
== END | disposition home or self-care (01) ==
LOC: MRI 08:59
PROVIDERS: PCP Internal Medicine
DX: M23.92 Unspecified internal derangement of left knee (principal)
CPT/HCPCS: 73721

== ENCOUNTER → 2024-01-07 | Outpatient (CLI) | payer OTHER, SELFPAY ==
[2024-01-07 12:47] LABS: Absolute Lymphocyte Count 1.54 X10^3/uL (0.83-4.51); Absolute Neutrophil Count 3.7 X10^3/uL (2.0-7.7); Basophil# 0.04 X10^3/uL; Basophil% 0.7 % (0-1); Eosinophil# 0.06 X10^3/uL; Hematocrit 43.2 % (37-47); Hemoglobin 14.1 g/dL (12.0-15.0); Lymphocyte # 1.54 X10^3/ul (0.83-4.51); Lymphocyte % 26.3 % (19-41); Mean Corp Hgb Conc 32.6 g/dL (32-36); Mean Corpuscular Hgb 30.6 pg (27.0-32.0); Mean Corpuscular Volume 93.7 fL (81-99); Mean Platelet Vol. 9.8 fl (6.2-12.0); Monocyte# 0.46 X10^3/uL; Monocyte% 7.9 % (0-10); NRBC Flagged by Analyzer 0 % (0-5); Neutrophil # 3.74 X10^3/uL (2.7-7.7); Neutrophil % 63.9 % (47-70); Platelet Count 330 K/mm3 (150-450); RBC Distribution Width CV 13.3 % (11.6-14.6); RBC Distribution Width SD 45.8 fl (35.1-43.9); Red Blood Count 4.61 M/mm3 (4.2-5.4); White Blood Count 5.9 K/mm3 (4.4-11.0)
[2024-01-07 13:08] LABS: Vitamin D,25 Hydroxy 35.5 ng/mL
[2024-01-07 13:18] LABS: ALB/GLOB Ratio 1.2 RATIO (0.9-2.4); AST(SGOT) 21 U/L (15-37); Alanine Aminotransfer ALT/SGPT 23 U/L (13-56); Albumin, Serum 4.1 g/dL (3.2-5.0); Alkaline Phosphatase 44 U/L (45-117); Anion Gap 3 (5-15); BUN 23 mg/dL (7-18); BUN/Creat Ratio 24.8 RATIO (10-20); Calcium,Total 9.2 mg/dL (8.5-10.1); Chloride 109 mmol/L (98-107); Cholesterol 132 mg/dL (200); Creatinine, Serum 0.93 mg/dL (0.55-1.02); EST Glomerular Filtration Rate 75 mL/min (>60); Est Glom Filt Rate - Afr Amer 90 mL/min (>60); Globulin 3.3 g/dL (2.2-4.2); Glucose 98 mg/dL (74-106); High Density Lipoprotein 63 mg/dL; Potassium 4.4 mmol/L (3.5-5.1); Protein, Total 7.4 g/dL (6.4-8.2); Sodium Level 139 mmol/L (136-145); Triglycerides 34 mg/dL; Very Low Density Lipoprotein 7 mg/dL (5-40)
== END | disposition home or self-care (01) ==
LOC: BIMLAB 09:44
PROVIDERS: PCP Internal Medicine; Visit Provider Internal Medicine
DX: Z00.00 Encounter for general adult medical examination without abnormal findings (principal); E55.9 Vitamin D deficiency, unspecified
CPT/HCPCS: 36415; 80053; 80061; 82306; 85025

== ENCOUNTER → 2024-01-10 | Outpatient (CLI) | payer OTHER, SELFPAY ==
--- NOTE | 2024-01-10 11:33 | US_ITS ---
INDICATION: LLQ Swelling EXAMINATION: Ultrasound US Abdomen Limited (quadrant) TECHNIQUE: Cagle scale and color doppler imaging was performed of the left umbilical region. COMPARISON: No relevant prior comparison study available FINDINGS: The left umbilical region was scanned as indicated by the patient. No abnormal fluid collection is seen. No cystic or solid mass is identified. No hernia is definitely seen on this exam. US/Abdomen Limited IMPRESSION: No demonstrated definite hernia or abnormal fluid collection. Electronically Signed: Naveen Morgan MD at 12:56 EST ,
== END | disposition home or self-care (01) ==
LOC: US 11:32
PROVIDERS: PCP Internal Medicine; Referring Provider Internal Medicine; Visit Provider Internal Medicine
DX: M79.89 Other specified soft tissue disorders (principal)
CPT/HCPCS: 76705

== ENCOUNTER → 2024-06-05 | Outpatient (CLI) | payer OTHER, SELFPAY ==
--- NOTE | 2024-06-05 15:49 | CT_ITS ---
STUDY: CT ABDOMEN AND PELVIS WITH CONTRAST REASON FOR EXAM: Female, 34 years old. periumbilic swelling,mass or lump -- IV and Oral contrast RADIATION DOSAGE (If Supplied By Facility): CTDIvol = ( 10.49 ) mGy, DLP = ( 368.14 ) mGycm TECHNIQUE: Transaxial images were obtained from the dome of the diaphragm to the symphysis pubis without oral contrast. Oral and amp; IV Gastrografin and amp; 100mL Isovue-370 was administered. Sagittal and coronal images were reconstructed. Individualized dose optimization techniques were used for this CT. COMPARISON: None. FINDINGS: The visualized lung bases are unremarkable. The visualized portions of the heart are within normal limits. Normal liver. The gallbladder is contracted. Normal spleen. Normal pancreas. Normal bilateral adrenal glands. Normal right kidney. Normal left kidney. Normal visualized stomach. Normal small intestine. Moderate fecal retention throughout the colon. The appendix is visualized and appears normal. Normal abdominal aorta. Normal inferior vena cava. Normal retroperitoneum. Normal urinary bladder. Normal visualized uterus. IUD in normal position. Normal abdominal wall. Normal osseous structures. CT/Abdomen/Pelvis WITH Contrast IMPRESSION: No definite acute or significant abnormality seen. No evidence for mass. Electronically Signed: Alexander Booker MD at 16:26 EDT ,
== END | disposition home or self-care (01) ==
LOC: CT 15:47
PROVIDERS: PCP Internal Medicine; Referring Provider Surgery; Visit Provider Surgery
DX: R19.05 Periumbilic swelling, mass or lump (principal)
CPT/HCPCS: 74177; Q9967

== ENCOUNTER → 2024-06-23 | Outpatient (CLI) | payer OTHER, SELFPAY ==
[2024-07-01 16:10] LABS: HPV APTIMA, High Risk Negative (Negative)
== END | disposition home or self-care (01) ==
LOC: LABSPEC 16:18
PROVIDERS: PCP Internal Medicine; Referring Provider Nurse Practitioner Family; Visit Provider Nurse Practitioner Family
DX: Z12.4 Encounter for screening for malignant neoplasm of cervix (principal)
CPT/HCPCS: 87624; 88175; G0145

== ENCOUNTER → 2024-08-27 | Outpatient (CLI) | payer OTHER, SELFPAY ==
--- OUTSIDE RECORDS SUMMARY | 2024-08-27 12:31 | XMS RPT_ITS | CCD ---
Author Organization [facility] Care Team Providers Care Clinical Trial Data Manager Name Role Phone Unavailable Primary Care Provider Unavailabl e Ty Hoffmann Attending Unavailable No, PCP Primary Care Unavailable PROVIDER, UNKNOWN Referring Unavailable Ty Hoffmann Attending Unavailable No, PCP Primary Care Unavailable PROVIDER, UNKNOWN Referring Unavailable SHUN TY K. Referring Unavailable SHUN TY K. Referring Unavailable SHUN TY K. Referring Unavailable SHUN TY K. Admitting Unavailable SHUNTY K. Attending Unavailable SHUN TY K. Referring Unavailable SHUN, TY K. Referring Unavailable SHUN TY K. Referring Unavailable SHUN TY K. Referring Unavailable OLEBELGICAE, EFEWONGBE B Primary Care Unavailable SHAHNAZ PAT Referring Unavailab COURTNEY Lennon Attending Unavailable OLEBELGICAE, EFEWONGBE B Primary Care Unavailable RAQUEL OCHOA Attending Unavailable SHAHNAZ PAT Referring Unavailab le SHAHNAZ PAT Attending Unavailab le SIDRAE, EFEWONGBE B Primary Care Unavailable SHAHNAZ PAT Referring Unavailab le SHAHNAZ PAT Referring Unavailab CHARLES Ledbetter Attending Unavailable OLEGHE, EFEWONGBE B Primary Care Unavailable TY HOFFMANN Attending Unavailable SIDRAE, EFEWONGBE B Primary Care Unavailable SHAHNAZ PAT Referring Unavailab HANY Amador Attending Unavailable RADHA, EFEWONGBE B Primary Care Unavailable SHAHNAZ PAT Referring Unavailab le RAQUEL OCHOA Attending Unavailable SHAHNAZ PAT Referring Unavailab le OLEGHE, EFEWONGBE B Primary Care Unavailable RADHA, EFEWONGBE B Primary Care Unavailable SHAHNAZ PAT Referring Unavailab le CLIFFORD, COURTNEY K Attending Unavailable HANY MARIE Attending Unavailable OLEGHE, EFEWONGBE B Primary Care Unavailable SHAHNAZ PAT Referring Unavailab le OLEGHE, EFEWONGBE B Primary Care Unavailable SHAHNAZ PAT Referring Unavailab COURTNEY Lennon Attending Unavailable MARIANNE JORDAN Attending Unavailable OLEGHE, EFEWONGBE B Primary Care Unavailable COURTNEY CLIFFORD Referring Unavailable HANY MARIE Attending Unavailable OLEGHE, EFEWONGBE B Primary Care Unavailable SHAHNAZ PAT Referring Unavailab le OLEGHE, EFEWONGBE B Primary Care Unavailable BRISSA WALLACE Attending Unavailable SHAHNAZ PAT Referring Unavailab le ELVIS LONG Referring Unavailable RAQUEL OCHOA Attending Unavailable OLEGHE, EFEWONGBE B Primary Care Unavailable SHAHNAZ PAT Referring Unavailab le OLEGHE, EFEWONGBE B Primary Care Unavailable BRISSA WALLACE Attending Unavailable HANY MARIE Attending Unavailable BEATRIZ TATUM Referring Unavailable OLEGHE, EFEWONGBE B Primary Care Unavailable SHAHNAZ PAT Referring Unavailab le SHAHNAZ PAT Attending Unavailab le OLEGHE, EFEWONGBE B Primary Care Unavailable ELVIS LONG Attending Unavailable EVA ESQUIVEL Referring Unavailabl e OLEGHE, EFEWONGBE B Primary Care Unavailable OLEGHE, EFEWONGBE B Primary Care Unavailable ELVIS LONG Referring Unavailable SHAHNAZ DAVID Attending Unavailable SHAHNAZ PAT Referring Unavailab le OLEGHE, EFEWONGBE B Primary Care Unavailable BRISSA WALLACE Attending Unavailable SHAHNAZ PAT Attending Unavailab le OLEGHE, EFEWONGBE B Primary Care Unavailable MARIANNE JORDAN Attending Unavailable TY HOFFMANN Referring Unavailable Allergies Allergy Classification Reported Allergen(s) Allergy Type Date of Onset Reaction(s) Facility (1 source) Vancomycin; Translations: [VANCOMYCIN] Drug Allergy 04-05-2022 [facility] Repository Problems Problem Classification Problem Date Documented Da te Episodic/Chronic Other and delivery including normal (4 sources) Twin , monochorionic/mon oamniotic, second trimester; Translations: [Twin , monochorionic/ward mniotic, third trimester] Onset: 08-15-2022 Episodic Residual codes; unclassified (2 sources) History of uterine scar from previous surgery; Translations: [History of uterine scar from previous surgery] Onset: 08-24-2022 Episodic Results Test Name Value Interpretation Reference Range Facility Progress Noteon 09-25-2022 Manager State Authentication Interface Message Text Visit Subjective: Alaina Yoder is a 32 y.o. female who presents for a visit. She is 11 days following a delivery low transverse. I have fully reviewed the and intrapartum course. The delivery was at 29 gestational weeks for FGR. Delivering Provider: Kailee Wilkinson MD. course has been complicated by NICU stay. Babies are feeding by pumped breastmilk. Bleeding thin lochia. Bowel function is normal. Bladder function is normal. Patient is not sexually active. Contraception method is IUD. Patient's medications, allergies, past medical, surgical, , social, and family histories were reviewed and updated as appropriate. She is unaccompanied. Review of Systems All other systems reviewed and are negative. Objective: BP 134/71 Wt 72.5 kg (159 lb 12.8 oz) LMP 02/16/2022 Unknown BMI 24.30 kg/m Physical Exam Nursing note and vitals reviewed. Constitutional: Appearance: She is well-developed and well-nourished. Pulmonary: Effort: Pulmonary effort is normal. Abdominal: Palpations: Abdomen is soft. Musculoskeletal: General: Normal range of motion. Neurological: Mental Status: She is alert and oriented to person, place, and time. Skin: General: Skin is warm and dry. Psychiatric: Mood and Affect: Mood and affect normal. Behavior: Behavior normal. Incision intact without redness, drainage or edema Assessment/Plan: Incision check- Incision care reviewed 1. Contraception: IUD 2. PP precautions reviewed 3. Follow up with OB in 4-6 weeks for final PP appt The total time spent on patient care today 09/25/2022 was 30 minutes. -15 minutes direct patient care -15 minutes chart review and documentation Normal [facility] Progress Noteon 09-16-2022 Progress Note Reviewed home care, meds, followup with pt. She verbalized understanding. Ready for discharge. [facility] Progress Note Note- POST OPERATIVE DAY # 3 Alaina Yoder is a 32 y.o. who was seen & examined today. Her was complicated by: Patient Active Problem List Diagnosis Twin , monochorionic/diamnioti c, third trimester Today she is doing well without any chief complaint. Her lochia is light. She denies NERI, chest pain, SOB . She is ambulating well. Flatus present. Bowel movement absent. Voiding without difficulty. She is tolerating solids. Pain is controlled yes. Vital Signs: Vitals: 09/14/22 1536 09/14/22 2327 09/15/22 0740 09/15/22 2237 BP: 104/64 95/58 112/75 124/76 BP Location: Right arm Left arm Right arm Right arm Patient Position: Sitting Lying Sitting Standing Pulse: 62 69 56 80 Resp: 16 18 18 18 Temp: 36.8 ?C (98.3 ?F) 36.8 ?C (98.3 ?F) 36.7 ?C (98.1 ?F) 36.6 ?C (97.9 ?F) TempSrc: Temporal Temporal Temporal Temporal SpO2: 97% 97% 98% 98% Weight: Height: Urine Input & Output last 24hrs: No intake or output data in the 24 hours ending 09/16/22 0508 Physical Exam: GENERAL APPEARANCE: alert, well appearing, in no apparent distress ABDOMEN : benign non-tender, without masses or organomegaly palpable EXTREMITIES: no redness or tenderness in the calves or thighs, no edema SKIN: normal coloration and turgor, no rashes, no suspicious skin lesions noted Desc; incision: healing well, no drainage, no erythema, no swelling, well approximated Labs: Lab Results Component Value Date WBC 10.1 09/05/2022 HGB 10.0 (L) 09/15/2022 HCT 35.2 09/05/2022 MCV 99.2 (H) 09/05/2022 PLT 209 09/05/2022 O Antibody Screen: No results found for: LABANTI No results found for: RUBELLAIGG LABOR DELIVERY ??? SCD's ONLY (labor through ambulation) SCD's PLUS Prophylactic Anticoagulation until discharge SCD's PLUS Prophylactic Anticoagulation for 6 weeks SCD's PLUS Therapeutic Anticoagulation for 6 weeks Vaginal Delivery [] BMI ? 40 kg/m2 Delivery All patients Vaginal Delivery [] BMI ? 40 kg/m2 AND [] Antepartum hospitalization ? 72 hours within the past month Delivery 1 Major Risk Factor: [] BMI ? 35 kg/m2 [] Low Risk Thrombophilia [] PPH+RBCs, IR, or operation [] Infection+Antibiotics [] Antepartum hospitalization ? 72 hours within the past month [] PMH: Sickle Cell, SLE, Cardiac Dz, Active IBD, Active Cancer, Nephrotic Syndrome OR 2 Minor Risk Factors: [] Multiple gestation [] Age > 40 [] PPH ? 1,000cc [] (+)FMH of VTE [] Smoker [] Preeclampsia [] BMI ? 40 kg/m2 AND [] Low Risk Thrombophilia OR ANY OF THE FOLLOWING: [] High Risk Thrombophilia without prior VTE [] Low Risk Thrombophilia with (+)FMH of VTE [] Any single prior VTE ANY OF THE FOLLOWING: [] Already on LMWH/UFH [] Multiple prior VTE [] High Risk Thrombophilia with prior VTE Low Risk Thrombophilia: FVL (heterozygous), Prothrombin (heterozygous), Protein C, Protein S High Risk Thrombophilia: FVL (homozygous), Prothrombin (homozygous), FVL+Prothrombin (heterozygous), Antithrombin III, APLS Assessment/Plan: Alaina Yoder is a 32 y.o. POD # 3 s/p PLTCS 2/2 Cat II FHT with mono/di twins Care - Doing well, VSS - male, male at [facility] NICU - breast feeding - Contraception: Paragard - Encourage ambulation and use of incentive spirometer - D/C millan catheter and saline lock IV on POD #1 - Postop Hb 10.0 - VTE Prophylaxis: Prophylactic Dosing until Discharge Acute blood loss anemia - Pre op Hgb 12.2; post op hgb 10.0 - Asymptomatic this AM - Continue PO iron and colace Disposition: Continue current care Based on my clinical assessment, this patient is safe for self discharge (does not need transport by wheelchair) if she so chooses. Provider's Name: MD Viri Oliver, 09/16/2022, 5:08 AM ATTENDING NOTE: I personally saw and evaluated the patient. I reviewed the care provided by the Resident or Advance Practice Provider including the patient's medical history, physical exam findings, diagnosis and treatment plan. I also agree with the documentation from the Resident or Advance Practice Provider unless otherwise indicated: Pt continues to do well. Ok for discharge to home today. --- Total time spent discharging the patient was less than 30 minutes, of which greater than 50% of the time was spent counseling and coordinating care. [facility] Progress Noteon 09-15-2022 Progress Note Pt left at 1525 in stable condition to visit her twins in the NICU at [facility]. [facility] Progress Note Note- POST OPERATIVE DAY # 2 Alaina Yoder is a 32 y.o. who was seen & examined today. Her was complicated by: Patient Active Problem List Diagnosis Twin , monochorionic/diamnioti c, third trimester Today she is doing well without any chief complaint. Her lochia is light. She denies CP, NERI, SOB dizziness . She is ambulating well. Flatus present. Bowel movement absent. Voiding without difficulty. She is tolerating solids. Pain is controlled yes. Vital Signs: Vitals: 09/14/22 0741 09/14/22 1342 09/14/22 1536 09/14/22 2327 BP: 115/70 113/64 104/64 95/58 BP Location: Right arm Right arm Left arm Patient Position: Sitting Sitting Lying Pulse: 68 58 62 69 Resp: 16 16 16 18 Temp: 37 ?C (98.6 ?F) 37 ?C (98.6 ?F) 36.8 ?C (98.3 ?F) 36.8 ?C (98.3 ?F) TempSrc: Temporal Temporal Temporal Temporal SpO2: 96% 96% 97% 97% Weight: Height: Urine Input & Output last 24hrs: Intake/Output Summary (Last 24 hours) at 09/15/2022 0535 Last data filed at 09/14/2022 0900 Gross per 24 hour Intake -- Output 650 ml Net -650 ml Physical Exam: GENERAL APPEARANCE: alert, well appearing, in no apparent distress ABDOMEN : benign non-tender, without masses or organomegaly palpable UTERUS : normal size, well involuted, firm, non-tender Desc; incision: dressing in place Labs: Lab Results Component Value Date WBC 10.1 09/05/2022 HGB 12.1 09/05/2022 HCT 35.2 09/05/2022 MCV 99.2 (H) 09/05/2022 PLT 209 09/05/2022 O Antibody Screen: No results found for: LABANTI No results found for: RUBELLAIGG LABOR DELIVERY ??? SCD's ONLY (labor through ambulation) SCD's PLUS Prophylactic Anticoagulation until discharge SCD's PLUS Prophylactic Anticoagulation for 6 weeks SCD's PLUS Therapeutic Anticoagulation for 6 weeks Vaginal Delivery [] BMI ? 40 kg/m2 Delivery All patients Vaginal Delivery [] BMI ? 40 kg/m2 AND [] Antepartum hospitalization ? 72 hours within the past month Delivery 1 Major Risk Factor: [] BMI ? 35 kg/m2 [] Low Risk Thrombophilia [] PPH+RBCs, IR, or operation [] Infection+Antibiotics [] Antepartum hospitalization ? 72 hours within the past month [] PMH: Sickle Cell, SLE, Cardiac Dz, Active IBD, Active Cancer, Nephrotic Syndrome OR 2 Minor Risk Factors: [] Multiple gestation [] Age > 40 [] PPH ? 1,000cc [] (+)FMH of VTE [] Smoker [] Preeclampsia [] BMI ? 40 kg/m2 AND [] Low Risk Thrombophilia OR ANY OF THE FOLLOWING: [] High Risk Thrombophilia without prior VTE [] Low Risk Thrombophilia with (+)FMH of VTE [] Any single prior VTE ANY OF THE FOLLOWING: [] Already on LMWH/UFH [] Multiple prior VTE [] High Risk Thrombophilia with prior VTE Low Risk Thrombophilia: FVL (heterozygous), Prothrombin (heterozygous), Protein C, Protein S High Risk Thrombophilia: FVL (homozygous), Prothrombin (homozygous), FVL+Prothrombin (heterozygous), Antithrombin III, APLS Assessment/Plan: Alaina Yoder is a 32 y.o. POD # 2 s/p PLTCS 2/2 Cat II FHT with [place]/Di Twins Care - Doing well, VSS - male, male at [facility] NICU - breast feeding - Contraception: Paraguard - Encourage ambulation and use of incentive spirometer - D/C millan catheter and saline lock IV on POD #1 - Postop Hb 10.0 - VTE Prophylaxis: Prophylactic Dosing until Discharge Acute blood loss anemia Preop hgb 12.1; postop hgb 10.0 Asymptomatic Continue PO iron and colace Disposition: Continue current care Based on my clinical assessment, this patient is safe for self discharge (does not need transport by wheelchair) if she so chooses. Provider's Name: MD FERNANDA Oliver DO 09/15/2022, 5:35 AM ATTENDING NOTE: I personally saw and evaluated the patient. I reviewed the care provided by the Resident or Advance Practice Provider including the patient's medical history, physical exam findings, diagnosis and treatment plan. I also agree with the documentation from the Resident or Advance Practice Provider unless otherwise indicated: Pt is doing well. Continue current mgmt. Anticipate d/c to home POD#3. --- Total time spent with the patient was 15 minutes, of which greater than 50% of the time was spent counseling and coordinating care. [facility] Progress Note Pt back from [facility]. Pt is currently pumping [facility] 42on 09-14-2022 42 This is mom's second baby, was not successful with first baby. History of a breast augmentation. Mom will follow up with [facility] for a rental pump. Has a [employer] GO for home. Breast pump use indicated for this pt. Due to: prematurity. Hospital breast pump, supplies kit, swabs and colostrum collectors provided and set up for patient at the bedside. Instruction given on pump operation, settings, technique and frequency/duration. Return demonstration given by patient. Observation of pumping session and flange fitting done. Flange size 25 on left- 22.5 on right.mm. Mom instructed to double pump every 2-3 hours for 8-10 times per day with at least one pump session between 12 and 6 AM. Suction to be set for comfort but recommend between 20-60%. Reassured patient that it is normal to not collect any significant amounts of breast milk in the first days of pumping, but consistent pumping is important and typically results in increased milk production. Discussed projected amounts and daily goals. Reviewed breast massage and hand expression for increasing milk production. Reviewed colostrum collectors and swabs- how to use and collect colostrum and label swabs/syringes. Breast milk storage guidelines reviewed. Cleaning of pump parts reviewed and basin, soap and clean towels provided for this purpose. Encouraged skin to skin as soon as baby's condition is stable. Discussed plans for home electric breast pump. All questions answered. Will continue to monitor, encourage and support patient. [facility] Labor and Delivery Noteon Labor and Delivery Note Patient: Alaina Yoder : 1990 Date of Procedure: 09/14/22 Principal Problem: Twin , monochorionic/diamnioti c, third trimester PREOPERATIVE DIAGNOSES: 1. at 29w6d [place]/Di twins 2. Persistent category II FHT baby B 3. FGR baby B 4. 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 Cardiac defect baby A (pulmonary stenosis) 6. Velamentous cord insertion baby B 7. Unwanted mole on abdomen POSTOPERATIVE DIAGNOSES: 1. Same 2. Living Infant, male PROCEDURE: Primary low transverse section, mole removal, ParaGard IUD placement SURGEON: Dr. Wilkinson ASST: Dr. Michael ANESTHESIA: spinal ANTIBIOTIC(S): 2g Ancef and Azithromycin VAG PREP : No FINDINGS: Normal appearing uterus, ovaries and fallopian tubes FLUIDS: 1,000 ml crystalloids URINE: 500 ml Estimated blood loss: 800mL Quantitative blood loss: DRAINS: millan catheter SPECIMENS: Placenta, and mole COMPLICATIONS: none CONDITION: good, transferred to : post anesthesia recovery FINDINGS: A: Live male , head first Weight: 1454g APGARS 1 min: 7 5 min: 9 Baby B: Live male , Footling breech Weight: 1194g APGARS 1 min: 5 5 min: 9 Tubes and ovaries: within normal limits. Description: baby anatomically normal x2 DETAILS OF PROCEDURE: Patient was brought urgently into the operating room and baby B's HR was found to be in the normal range so she received a spinal anesthetic. She was placed in the supine position slightly tilted to the left and the abdomen was prepped with and draped in the usual manner. Spinal anesthetic was tested and found to be adequate. The abdomen was entered through a Pfannenstiel incision The incision was carried through the subcutaneous tissue to the fascia which was nicked in the midline and extended sharply with Felix scissors. The fascia was dissected off the rectus muscles bluntly only superiorly. The muscles were in the midline bluntly. The peritoneum was entered bluntly. The peritoneal incision was extended bluntly with good visualization of bladder. Bladder retractor was placed as well as Farnsworth retractor. The lower uterine segment was opened in a low transverse with a scalpel. The amniotic cavity was entered and Clear amniotic fluid was noted. Bladder retractor and Farnsworth retractor were removed, and baby A was delivered from the Cephalic presentation with fundal pressure without difficulty. The baby was handed over to the NICU personnel standing by. Baby B was found to be footling breech, the amniotic sac was ruptured for clear fluid and the breech was delivered in standard maneuvers without difficultly. Placenta was extracted intact with gentle traction. The uterine cavity was swept and cleared of all clots and debris using a dry lap. The ParaGard IUD was placed and strings gently placed through the cervix. The uterine incision was closed using a continuous non-locked suture of 0 Vicrryl A second layer was performed with 0 Vicryl. Hemostasis was ensured. Hemostasis of the operative field was ensured and the gutters were cleared of all clots and debris. Fascia was closed with 0 PDS in a running fashion. Subcutaneous closure was performed with 3-0 Vicrryl Hemostasis was ensured. Skin closure was performed with 4-0 Vicryl Dermabond was placed on the incision . The patient also desired removal of mole lateral to incision and was consented for this. The mole was excised at the base with a scalpel and sent to pathology. The excision site was repaired with running 4-0 vicryl. Dermabond was placed on the site. Sponge, needle and instrument counts were correct twice. Patient was transferred to the recovery room in satisfactory stable condition. Kailee Wilkinson MD 09/14/2022 1:01 AM LABOR DELIVERY ??? SCD's ONLY (labor through ambulation) SCD's PLUS Prophylactic Anticoagulation until discharge SCD's PLUS Prophylactic Anticoagulation for 6 weeks SCD's PLUS Therapeutic Anticoagulation for 6 weeks Vaginal Delivery [] BMI ? 40 kg/m2 Delivery All patients Vaginal Delivery [] BMI ? 40 kg/m2 AND [] Antepartum hospitalization ? 72 hours within the past month Delivery 1 Major Risk Factor: [] BMI ? 35 kg/m2 [] Low Risk Thrombophilia [] PPH+RBCs, IR, or operation [] Infection+Antibiotics [x] Antepartum hospitalization ? 72 hours within the past month [] PMH: Sickle Cell, SLE, Cardiac Dz, Active IBD, Active Cancer, Nephrotic Syndrome OR 2 Minor Risk Factors: [x] Multiple gestation [] Age > 40 [] PPH ? 1,000cc [] (+)FMH of VTE [] Smoker [] Preeclampsia [] BMI ? 40 kg/m2 AND [] Low Risk Thrombophilia OR ANY OF THE FOLLOWING: [] High Risk Thrombophilia without prior VTE [] Low Risk Thrombophilia with (+)FMH of VTE [] Any single prior VTE ANY OF THE FOLLOWING: [] Already on LMWH/UFH [] Multiple prior VTE [] High Risk Throm (more content not included)... [facility] Progress Noteon 09-14-2022 Progress Note Pt left in stable condition to visit twins in NICU at [facility]. [facility] Progress Note Note- POST OPERATIVE DAY # 1 Alaina Yoder is a 32 y.o. who was seen & examined today. Her was complicated by: Patient Active Problem List Diagnosis Twin , monochorionic/diamnioti c, third trimester Today she is doing well without any chief complaint. Her lochia is light. She denies CP, NERI, dizzniess, SOB . She has not ambulated yet. Flatus absent. Bowel movement absent. Voiding millan in place. She is tolerating solids. Pain is controlled yes. Vital Signs: Vitals: 09/13/22 2305 09/14/22 0045 09/14/22 0330 09/14/22 0436 BP: 121/82 Pulse: 80 72 Resp: 18 Temp: 36.4 ?C (97.5 ?F) 36.8 ?C (98.2 ?F) 37.1 ?C (98.8 ?F) TempSrc: Temporal Temporal Temporal SpO2: 98% Weight: Height: Urine Input & Output last 24hrs: Intake/Output Summary (Last 24 hours) at 09/14/2022 0535 Last data filed at 09/14/2022 0330 Gross per 24 hour Intake 1396.07 ml Output 1800 ml Net -403.93 ml Physical Exam: GENERAL APPEARANCE: alert, well appearing, in no apparent distress ABDOMEN : benign non-tender, without masses or organomegaly palpable UTERUS : normal size, well involuted, firm, non-tender Desc; incision: dressing in place Labs: Lab Results Component Value Date WBC 10.1 09/05/2022 HGB 12.1 09/05/2022 HCT 35.2 09/05/2022 MCV 99.2 (H) 09/05/2022 PLT 209 09/05/2022 O Antibody Screen: No results found for: LABANTI No results found for: RUBELLAIGG LABOR DELIVERY ??? SCD's ONLY (labor through ambulation) SCD's PLUS Prophylactic Anticoagulation until discharge SCD's PLUS Prophylactic Anticoagulation for 6 weeks SCD's PLUS Therapeutic Anticoagulation for 6 weeks Vaginal Delivery [] BMI ? 40 kg/m2 Delivery All patients Vaginal Delivery [] BMI ? 40 kg/m2 AND [] Antepartum hospitalization ? 72 hours within the past month Delivery 1 Major Risk Factor: [] BMI ? 35 kg/m2 [] Low Risk Thrombophilia [] PPH+RBCs, IR, or operation [] Infection+Antibiotics [] Antepartum hospitalization ? 72 hours within the past month [] PMH: Sickle Cell, SLE, Cardiac Dz, Active IBD, Active Cancer, Nephrotic Syndrome OR 2 Minor Risk Factors: [] Multiple gestation [] Age > 40 [] PPH ? 1,000cc [] (+)FMH of VTE [] Smoker [] Preeclampsia [] BMI ? 40 kg/m2 AND [] Low Risk Thrombophilia OR ANY OF THE FOLLOWING: [] High Risk Thrombophilia without prior VTE [] Low Risk Thrombophilia with (+)FMH of VTE [] Any single prior VTE ANY OF THE FOLLOWING: [] Already on LMWH/UFH [] Multiple prior VTE [] High Risk Thrombophilia with prior VTE Low Risk Thrombophilia: FVL (heterozygous), Prothrombin (heterozygous), Protein C, Protein S High Risk Thrombophilia: FVL (homozygous), Prothrombin (homozygous), FVL+Prothrombin (heterozygous), Antithrombin III, APLS Assessment/Plan: Alaina Yoder is a 32 y.o. POD # 1 s/p PLTCS 2/2 Cat II FHT with mono/di twins Care - Doing well, VSS - male, male - breast feeding - Contraception: Paraguard - Encourage ambulation and use of incentive spirometer - D/C millan catheter and saline lock IV on POD #1 - Postop Hb pending - VTE Prophylaxis: Prophylactic Dosing until Discharge Disposition: Continue current care Based on my clinical assessment, this patient is safe for self discharge (does not need transport by wheelchair) if she so chooses. Provider's Name: MD FERNANDA Oliver DO 09/14/2022, 5:35 AM ATTENDING NOTE: I personally saw and evaluated the patient. I reviewed the care provided by the Resident or Advance Practice Provider including the patient's medical history, physical exam findings, diagnosis and treatment plan. I also agree with the documentation from the Resident or Advance Practice Provider unless otherwise indicated: Pt is doing well. Ok for day pass. --- Total time spent with the patient was 15 minutes, of which greater than 50% of the time was spent counseling and coordinating care. [facility] Progress Note Late note due to patient care. In patient room at 2301 during prolonged deceleration. US at bedside and FHR noted in 80's for 6 minutes. A code-C was called at 2306. Dr. Ramsey arrived to room and FHR then recovered and decision wasmade to proceed with unscheduled PCD based on M recommendations. Given recovery of FHT was able to proceed with spinal anesthesia. FHT in OR confirmed on BSUS >120. Patient consented for PCD to discuss r/b/a including infection/damage to surrounding organs/blood loss. OK with blood products. Dr. Wilkinson and Dr. Hoffmann were updated and agreeable with plan. Please refer to op note for further details. Mark Rose DO 09/14/2022 12:11 AM [facility] Progress Noteon 09-13-2022 Progress Note --- Attestation signed by Ty Hoffmann MD at 09/14/2022 12:23 AM MF See note agree with all documented by Dr. Milton Hoffmann MD Late note due to patient care. Prolonged deceleration at 2014 lasting 6min with 7min of rebound tachycardia. After recovering moderate variability present and overall reassuring. Today, there has been an increase in the frequency of decelerations occurring at 1000 and 1815. POC was discussed and tracing reviewed with [facility] Dr. Hoffmann over phone. Will make NPO status at this time and and administer 4g magnesium sulfate bolus for neuro-protection. Threshold for delivery is recurrent prolonged deceleration. While at bedside I personally spoke with patient and her , over the phone. Her is arranging to head to hospital in the event of emergency. Patient verbally consented for possibility of delivery tonight and discussed r/b/a of PCD including infection/damage to surrounding organs/agreeable to blood products if necessary. I spoke with HAY STACKER OPERATOR and updated on POC as well. Will continue to closely monitor. Currently, t Cat I with moderate variability and accelerations for both twin A and B. All questions answered to the best of my ability. Mark Rose DO 09/13/2022 9:39 PM Normal [facility] Progress Note MF I was notified of tracing concerns of Baby B by Dr. Charly Rose this evening, known FGR twin and 2 prolonged decels since 6pm with rebound tachycardia on Twin B recently after 6-7 minute decel. Now both Cat 1, but difficulty with keeping them on the monitor given Twin B's attempt at going from cephalic now to transverse on bedside scan performed by Dr. Rose. I talked with Alaina on the phone and recommended NPO status, IVF and continuous monitoring given the frequency and the prolonged nature with rebound tachycardia. We talked about magnesium bolus 4gm given their GA. I also recommended that she have her come to the hospital in case of need for delivery tonight. Will repeat Doppler in am and reassess planning if stable overnight. I did discuss if recurrent prolonged decel again given the rebound tachycardia will recommend moving forward with scheduled PCD. Dr. Tanner is aware of the plan and Dr. Ramsey is also in house in case of emergency. NICU will be alerted by Dr. Rose. My hope is continuation until our scheduled section on 09/27/22 but the couple is aware that this may not happen based upon our ongoing concerns. As I write this the twins are both Cat 1 X 2. Guarded prognosis for prolongation was discussed with patient. Ty Hoffmann MD [facility] Progress Note Nutrition update completed. Chart reviewed. Patient to be monitored and followed by the diet infrastructure technician. [facility] Progress Note --- Attestation signed by Ty Hoffmann MD at 09/13/2022 4:59 PM I independently saw and evaluated the patient. I agree with the findings and plan of care as documented in the resident's note. In good spirits today 32 yr old at 29 6/7 GA with the following: [place]/di twins Intermittent REDF of Twin B known sFGR Twin A: Last scan Twin A 1520gm normal UAD, Twin B 910gm and AEDF with iREDF 40% discordance. Today both fetuses are cephalic and only with elevated UAD! Continued IP and reviewed tracing with one deceleration this am s/p NICU, magnesium for neuroprotection, BMZ x 2 and rBMZ doing well discussed probable ongoing continuous monitoring given intermittent decels of Twin B 2. 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 Abnormal ultrasound with thickened NT for Twin A and velamentous cord inserton for Twin B, Cavum Vergae noted on 08/17 with likely normal variant Long discussion today about delivery timing and plan for the remainder of the . Scheduled for 31 6/7 weeks GA given FGR and past iREDF. Will need to have ongoing discussion and if only elevated UAD may push for 34 weeks with reassessment of IP status. Feel as though currently this is a one time measurement and will ensure that the correct babies UAD are measured and await Sunday measurements. She understands this is most probably going to be a scheduled primary and if increased decelerations may need delivery sooner. I spent 15 minutes in the visit today on the floor reviewing the chart, discussing the case with the residency staff and nursing Ty Hoffmann MD Maternal Medicine Service Resident Progress Note 09/13/2022 8:04 AM 08/24/2022 Hospital Day: 21 Alaina Yoder, 32 y.o. 29w6d Patient has been seen and examined. Pt had no complaints this am. Positive movement Negative vaginal bleeding Negative LOF Negative Contractions Vitals: 09/13/22 0725 09/13/22 0730 09/13/22 0735 09/13/22 0800 BP: BP Location: Patient Position: Pulse: 88 77 85 86 Resp: Temp: TempSrc: SpO2: Weight: Height: Baby A FHT: 140, moderate variability Accels: present Decels: absent Contractions: none Baby B FHT: 140, moderate variability Accels: present Decels: rare variable decel noted Physical Exam: Gen: NAD HEENT: Normocephalic, Atraumatic, Abd: soft, gravid, NTND, no rebound, no guarding. No fundal tenderness Ext: No LE edema, no calf tenderness or swelling Medications: Current Facility-Administered Medications Medication Dose Route Frequency Provider Last Rate Last Admin acetaminophen (Tylenol) tablet 650 mg 650 mg Oral q4h PRN Ty Hoffmann MD 650 mg at 09/12/22 0012 Or acetaminophen (Tylenol) suppository 650 mg 650 mg Rectal q4h PRN Ty Hoffmann MD aluminum & magnesium hydroxide-simethicone (Mylanta) 200-200-20 MG/5ML oral suspension 30 mL 30 mL Oral PRN Chacorta Toney DO aspirin EC tablet 81 mg 81 mg Oral Daily Ty Hoffmann MD 81 mg at 09/12/22 0841 docusate sodium (Colace) capsule 100 mg 100 mg Oral Daily Ty Hoffmann MD 100 mg at 09/12/22 0841 folic acid (Folvite) tablet 1 mg 1 mg Oral Daily Ty Hoffmann MD 1 mg at 09/12/22 0841 ondansetron ODT (Zofran-ODT) disintegrating tablet 4 mg 4 mg Oral q8h PRN Ty Hoffmann MD Or ondansetron (Zofran) injection 4 mg 4 mg IntraVENous q6h PRN Ty Hoffmann MD polyethylene glycol (PEG) 3350 (Miralax) packet 17 g 17 g Oral Daily Ty Hoffmann MD 17 g at 09/12/22 0839 Gummies 0.18-25 MG chewable tablet 1 Piece 1 Piece Oral Daily Ty Hoffmann MD 1 Piece at 09/12/22 0900 sodium chloride (Pamlico) 0.65 % nasal spray 2 spray 2 spray Each Nostril PRN Ty Hoffmann MD sodium chloride 0.9 % infusion 5-250 mL/hr IntraVENous PRN Ty Hoffmann MD sodium chloride 0.9% (NS) flush 5-40 mL 5-40 mL IntraVENous q12h Ty Hoffmann MD sodium chloride 0.9% (NS) flush 5-40 mL 5-40 mL IntraVENous PRN Ty Hoffmann MD Assessment/Plan: Alaina Yoder is a 32 y.o. 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 Normal [facility] BIOPHYSICAL PROFILE WO NON STRESS TESTINGon 09-13-2022 US BIOPHYSICAL PROFILE WO NON STRESS TESTING - OBSTETRICS REPORT (Signed Final 09/13/2022 04:38 pm) - PATIENT INFO: ID #: [id number] : [birth year] (32 yrs)(F) Name: ALAINA YODER Visit Date: 09/13/2022 09:09 am - PERFORMED BY: Attending: Ty Hoffmann MD Performed By: Ander Elena Referred By: LENA ALLISON Location: [facility] Visit Type: Inpatient - Hospital - SERVICE(S) PROVIDED: BPP w/out NST 95408 BPP w/out NST 62722 US Doppler umbilical art 32417 US Doppler umbilical art 59727 - INDICATIONS: Twin , monochorionic/diamnioti c, O30.033 third trimester IUGR - VITAL SIGNS: Height: 5'8 - EVALUATION (FETUS A): Num Of Fetuses: 2 Heart Rate(bpm): 141 Cardiac Activity: Regular rhythm Lie: Longitudinal mat LT Presentation: Cephalic Placenta: Posterior Amniotic Fluid DEANNA FV: Within normal limits DEANNA Sum(cm) %Tile Largest Pocket(cm) 3.35 < 3 3.35 RUQ(cm) 3.35 - BIOPHYSICAL EVALUATION (FETUS A): Amniotic F.V: Within normal limits F. Tone: Observed F. Movement: Observed Score: 06/12 F. Breathing: Observed - BIOMETRY (FETUS A): - GESTATIONAL AGE (FETUS A): Clinical DEWEY: 29w 6d DEWEY: 11/23/22 Best: 29w 6d Det. By: Clinical DEWEY DEWEY: 11/23/22 - DOPPLER - VESSELS (FETUS A): Umbilical Artery S/D %tile RI %tile PI %tile PSV (cm/s) 2.41 23 0.58 21 0.83 23 60.08 - EVALUATION (FETUS B): Num Of Fetuses: 2 Heart Rate(bpm): 139 Cardiac Activity: Regular rhythm Lie: Longitudinal Mat RT Presentation: Cephalic Placenta: Posterior Amniotic Fluid DEANNA FV: Within normal limits DEANNA Sum(cm) %Tile Largest Pocket(cm) 2.59 < 3 2.59 RUQ(cm) 2.59 - BIOPHYSICAL EVALUATION (FETUS B): Amniotic F.V: Within normal limits F. Tone: Observed F. Movement: Observed Score: 06/12 F. Breathing: Observed - BIOMETRY (FETUS B): - GESTATIONAL AGE (FETUS B): Clinical DEWEY: 29w 6d DEWEY: 11/23/22 Best: 29w 6d Det. By: Clinical DEWEY DEWEY: 11/23/22 - DOPPLER - VESSELS (FETUS B): Umbilical Artery S/D %tile RI %tile PI %tile PSV (cm/s) 4.92 > 97.5 0.79 97 1.52 > 97.5 52.3 Comment: The umbilical artery Doppler S/D is mildly elevated (>95th percentile) for this gestational age. - - Ty Hoffmann MD Electronically Signed Final Report 09/13/2022 04:38 pm - IMPRESSION: 1. Monochorionic diamniotic twin gestation at 29w 6d by clinically established DEWEY. 2. Twin B: known selective IUGR,elevated UAD no absent or reversal of flow (patient reports this is usually the finding when fetuses are cephalic cephalic) 3. Twin A known normal growth and normal UAD. 4. Normal BPP and amniotic fluid volume for both twins. Bladders present for both Recommendations: See inpatient chart. Ultrasound is not diagnostic of chromosomal aneuploidy and does not detect all subtle defects. Normal ultrasound findings do not guarantee normal outcomes. Normal [facility] Progress Noteon 09-12-2022 Progress Note MFM I spoke with the patient about her concerns related to [facility] and her insurance with possible out of pocket care, and escalated it to our lead PSR at [facility] who will speak with billing at the hospital tomorrow. Will also escalate to our care coordination team as well for ongoing plan for her delivery. Ty Hoffmann MD [facility] US BIOPHYSICAL PROFILE WO NON STRESS TESTINGon 09-11-2022 US BIOPHYSICAL PROFILE WO NON STRESS TESTING - OBSTETRICS REPORT (Signed Final 09/11/2022 12:26 pm) - PATIENT INFO: ID #: [id number] : [birth year] (32 yrs)(F) Name: ALAINA YODER Visit Date: 09/11/2022 09:13 am - PERFORMED BY: Attending: Brissa Wallace DO, FACOG Performed By: Lindy Du RDMS Referred By: LENA ALLISON Location: [facility] IP Visit Type: Inpatient - Hospital - SERVICE(S) PROVIDED: [place] [address] [place] [address] US Doppler umbilical art 60493 US Doppler umbilical art 62724 BPP w/out NST 09321 BPP w/out NST 59895 US Doppler MCA 61247 US Doppler MCA 29046 - INDICATIONS: Twin , monochorionic/diamnioti c, O30.033 third trimester Twin , monochorionic/diamnioti c, O30.033 third trimester Twin , monochorionic/diamnioti c, O30.033 third trimester Twin , monochorionic/diamnioti c, O30.033 third trimester Twin , monochorionic/diamnioti c, O30.033 third trimester Twin , monochorionic/diamnioti c, O30.033 third trimester Twin , monochorionic/diamnioti c, O30.033 third trimester Twin , monochorionic/diamnioti c, O30.033 third trimester - VITAL SIGNS: Height: 5'8 - EVALUATION (FETUS A): Num Of Fetuses: 2 Heart Rate(bpm): 130 Cardiac Activity: Regular rhythm Lie: Longitudinal Maternal LT Presentation: Cephalic Placenta: Posterior Membrane Desc: Monochorionic - diamniotic Membrane Size: Normal Amniotic Fluid DEANNA FV: Within normal limits Largest Pocket(cm) 3.3 - BIOPHYSICAL EVALUATION (FETUS A): Amniotic F.V: Within normal limits F. Tone: Observed F. Movement: Observed Score: 06/12 F. Breathing: Observed - BIOMETRY (FETUS A): BPD: 80.3 mm G.Age: 32w 2d 97 % OFD: 104.3 mm HC: 294.7 mm G.Age: 32w 4d 92 % AC: 257.8 mm G.Age: 30w 0d 56 % FL: 55.6 mm G.Age: 29w 2d 27 % LV: 4.48 mm CI: 77.0 % 70 - 86 FL/HC: 18.9 % 19.2 - 21.4 HC/AC: 1.14 0.99 - 1.21 FL/BPD: 69.2 % 71 - 87 FL/AC: 21.6 % 20 - 24 Est. FW: 1520 gm 3 lb 6 oz 58 % FW Discordancy: 0 \ 40 % - GESTATIONAL AGE (FETUS A): Clinical DEWEY: 29w 4d DEWEY: 11/23/22 U/S Today: 31w 0d DEWEY: 11/13/22 Best: 29w 4d Det. By: Clinical DEWEY DEWEY: 11/23/22 - ANATOMY (FETUS A): Cranium: Normal appearance Cavum: Normal appearance Ventricles: Normal appearance Choroid Plexus: Normal appearance Cerebellum: Normal appearance Thoracic: Normal appearance Heart: Normal appearance RVOT: Normal appearance LVOT: Normal appearance Diaphragm: Normal appearance Stomach: Normal appearance Abdomen: Normal appearance Abdominal Wall: Normal appearance Cord Vessels: Normal 3-Vessel Cord Kidneys: Normal appearance Bladder: Normal appearance Upper Extremities: Present Lower Extremities: Present - DOPPLER - VESSELS (FETUS A): Umbilical Artery S/D %tile RI %tile PSV (cm/s) 2.76 43 0.63 43 45.01 Middle Cerebral Artery PSV MoM (cm/s) 28.89 < 1 Ductus Venosus Normal Comment: The umbilical artery Doppler S/D is within normal limits for this gestational age. MCA Doppler velocities obtained are WNL. - EVALUATION (FETUS B): Num Of Fetuses: 2 Heart Rate(bpm): 135 Cardiac Activity: Regular rhythm Lie: Longitudinal Maternal RT Presentation: Breech Placenta: Posterior Membrane Desc: Monochorionic - diamniotic Membrane Size: Normal Amniotic Fluid DEANNA FV: Within normal limits Largest Pocket(cm) 2.8 - BIOPHYSICAL EVALUATION (FETUS B): Amniotic F.V: Within normal limits F. Tone: Observed F. Movement: Observed Score: 8/8 F. Breathing: Observed - BIOMETRY (FETUS B): BPD: 72.2 mm G.Age: 29w 0d 21 % OFD: 95.5 mm HC: 267.9 mm G.Age: 29w 1d 10 % AC: 206.3 mm G.Age: 25w 1d < 1 % FL: 49 mm G.Age: 26w 3d < 1 % HUM: 43.9 mm G.Age: 26w 0d < 5 % LV: 5.05 mm TIB: 43.7 mm G.Age: 27w 0d < 5 % FIB: 42 mm G.Age: 26w 0d 24 % CI: (more content not included)... Normal [facility] US MDL CEREBRAL ARTERY ECHOon 09-11-2022 US MDL CEREBRAL ARTERY ECHO - OBSTETRICS REPORT (Signed Final 09/11/2022 12:26 pm) - PATIENT INFO: ID #: [id number] : [birth year] (32 yrs)(F) Name: ALAINA YODER Visit Date: 09/11/2022 09:13 am - PERFORMED BY: Attending: Brissa Wallace DO, FACOG Performed By: Lindy Du RDMS Referred By: LENA ALLISON Location: [facility] IP Visit Type: Inpatient - Hospital - SERVICE(S) PROVIDED: [place] [address] [place] [address] US Doppler umbilical art 01037 US Doppler umbilical art 31822 BPP w/out NST 62190 BPP w/out NST 32907 US Doppler MCA 38975 US Doppler MCA 08068 - INDICATIONS: Twin , monochorionic/diamnioti c, O30.033 third trimester Twin , monochorionic/diamnioti c, O30.033 third trimester Twin , monochorionic/diamnioti c, O30.033 third trimester Twin , monochorionic/diamnioti c, O30.033 third trimester Twin , monochorionic/diamnioti c, O30.033 third trimester Twin , monochorionic/diamnioti c, O30.033 third trimester Twin , monochorionic/diamnioti c, O30.033 third trimester Twin , monochorionic/diamnioti c, O30.033 third trimester - VITAL SIGNS: Height: 5'8 - EVALUATION (FETUS A): Num Of Fetuses: 2 Heart Rate(bpm): 130 Cardiac Activity: Regular rhythm Lie: Longitudinal Maternal LT Presentation: Cephalic Placenta: Posterior Membrane Desc: Monochorionic - diamniotic Membrane Size: Normal Amniotic Fluid DEANNA FV: Within normal limits Largest Pocket(cm) 3.3 - BIOPHYSICAL EVALUATION (FETUS A): Amniotic F.V: Within normal limits F. Tone: Observed F. Movement: Observed Score: 06/12 F. Breathing: Observed - BIOMETRY (FETUS A): BPD: 80.3 mm G.Age: 32w 2d 97 % OFD: 104.3 mm HC: 294.7 mm G.Age: 32w 4d 92 % AC: 257.8 mm G.Age: 30w 0d 56 % FL: 55.6 mm G.Age: 29w 2d 27 % LV: 4.48 mm CI: 77.0 % 70 - 86 FL/HC: 18.9 % 19.2 - 21.4 HC/AC: 1.14 0.99 - 1.21 FL/BPD: 69.2 % 71 - 87 FL/AC: 21.6 % 20 - 24 Est. FW: 1520 gm 3 lb 6 oz 58 % FW Discordancy: 0 \ 40 % - GESTATIONAL AGE (FETUS A): Clinical DEWEY: 29w 4d DEWEY: 11/23/22 U/S Today: 31w 0d DEWEY: 11/13/22 Best: 29w 4d Det. By: Clinical DEWEY DEWEY: 11/23/22 - ANATOMY (FETUS A): Cranium: Normal appearance Cavum: Normal appearance Ventricles: Normal appearance Choroid Plexus: Normal appearance Cerebellum: Normal appearance Thoracic: Normal appearance Heart: Normal appearance RVOT: Normal appearance LVOT: Normal appearance Diaphragm: Normal appearance Stomach: Normal appearance Abdomen: Normal appearance Abdominal Wall: Normal appearance Cord Vessels: Normal 3-Vessel Cord Kidneys: Normal appearance Bladder: Normal appearance Upper Extremities: Present Lower Extremities: Present - DOPPLER - VESSELS (FETUS A): Umbilical Artery S/D %tile RI %tile PSV (cm/s) 2.76 43 0.63 43 45.01 Middle Cerebral Artery PSV MoM (cm/s) 28.89 < 1 Ductus Venosus Normal Comment: The umbilical artery Doppler S/D is within normal limits for this gestational age. MCA Doppler velocities obtained are WNL. - EVALUATION (FETUS B): Num Of Fetuses: 2 Heart Rate(bpm): 135 Cardiac Activity: Regular rhythm Lie: Longitudinal Maternal RT Presentation: Breech Placenta: Posterior Membrane Desc: Monochorionic - diamniotic Membrane Size: Normal Amniotic Fluid DEANNA FV: Within normal limits Largest Pocket(cm) 2.8 - BIOPHYSICAL EVALUATION (FETUS B): Amniotic F.V: Within normal limits F. Tone: Observed F. Movement: Observed Score: 8/8 F. Breathing: Observed - BIOMETRY (FETUS B): BPD: 72.2 mm G.Age: 29w 0d 21 % OFD: 95.5 mm HC: 267.9 mm G.Age: 29w 1d 10 % AC: 206.3 mm G.Age: 25w 1d < 1 % FL: 49 mm G.Age: 26w 3d < 1 % HUM: 43.9 mm G.Age: 26w 0d < 5 % LV: 5.05 mm TIB: 43.7 mm G.Age: 27w 0d < 5 % FIB: 42 mm G.Age: 26w 0d 24 % CI: (more content not included)... [facility] US OB FOLLOW UP TRANSABDOMIN AL APPROACHon 09-11-2022 US OB FOLLOW UP TRANSABDOMINAL APPROACH - OBSTETRICS REPORT (Signed Final 09/11/2022 12:26 pm) - PATIENT INFO: ID #: [id number] : [birth year] (32 yrs)(F) Name: ALAINA YODER Visit Date: 09/11/2022 09:13 am - PERFORMED BY: Attending: Brissa Wallace DO, FACOG Performed By: Lindy Du RDMS Referred By: LENA ALLISON Location: [facility] IP Visit Type: Inpatient - Hospital - SERVICE(S) PROVIDED: [place] [address] [place] [address] US Doppler umbilical art 67905 US Doppler umbilical art 95671 BPP w/out NST 68333 BPP w/out NST 25106 US Doppler MCA 88337 US Doppler MCA 72101 - INDICATIONS: Twin , monochorionic/diamnioti c, O30.033 third trimester Twin , monochorionic/diamnioti c, O30.033 third trimester Twin , monochorionic/diamnioti c, O30.033 third trimester Twin , monochorionic/diamnioti c, O30.033 third trimester Twin , monochorionic/diamnioti c, O30.033 third trimester Twin , monochorionic/diamnioti c, O30.033 third trimester Twin , monochorionic/diamnioti c, O30.033 third trimester Twin , monochorionic/diamnioti c, O30.033 third trimester - VITAL SIGNS: Height: 5'8 - EVALUATION (FETUS A): Num Of Fetuses: 2 Heart Rate(bpm): 130 Cardiac Activity: Regular rhythm Lie: Longitudinal Maternal LT Presentation: Cephalic Placenta: Posterior Membrane Desc: Monochorionic - diamniotic Membrane Size: Normal Amniotic Fluid DEANNA FV: Within normal limits Largest Pocket(cm) 3.3 - BIOPHYSICAL EVALUATION (FETUS A): Amniotic F.V: Within normal limits F. Tone: Observed F. Movement: Observed Score: 06/12 F. Breathing: Observed - BIOMETRY (FETUS A): BPD: 80.3 mm G.Age: 32w 2d 97 % OFD: 104.3 mm HC: 294.7 mm G.Age: 32w 4d 92 % AC: 257.8 mm G.Age: 30w 0d 56 % FL: 55.6 mm G.Age: 29w 2d 27 % LV: 4.48 mm CI: 77.0 % 70 - 86 FL/HC: 18.9 % 19.2 - 21.4 HC/AC: 1.14 0.99 - 1.21 FL/BPD: 69.2 % 71 - 87 FL/AC: 21.6 % 20 - 24 Est. FW: 1520 gm 3 lb 6 oz 58 % FW Discordancy: 0 \ 40 % - GESTATIONAL AGE (FETUS A): Clinical DEWEY: 29w 4d DEWEY: 11/23/22 U/S Today: 31w 0d DEWEY: 11/13/22 Best: 29w 4d Det. By: Clinical DEWEY DEWEY: 11/23/22 - ANATOMY (FETUS A): Cranium: Normal appearance Cavum: Normal appearance Ventricles: Normal appearance Choroid Plexus: Normal appearance Cerebellum: Normal appearance Thoracic: Normal appearance Heart: Normal appearance RVOT: Normal appearance LVOT: Normal appearance Diaphragm: Normal appearance Stomach: Normal appearance Abdomen: Normal appearance Abdominal Wall: Normal appearance Cord Vessels: Normal 3-Vessel Cord Kidneys: Normal appearance Bladder: Normal appearance Upper Extremities: Present Lower Extremities: Present - DOPPLER - VESSELS (FETUS A): Umbilical Artery S/D %tile RI %tile PSV (cm/s) 2.76 43 0.63 43 45.01 Middle Cerebral Artery PSV MoM (cm/s) 28.89 < 1 Ductus Venosus Normal Comment: The umbilical artery Doppler S/D is within normal limits for this gestational age. MCA Doppler velocities obtained are WNL. - EVALUATION (FETUS B): Num Of Fetuses: 2 Heart Rate(bpm): 135 Cardiac Activity: Regular rhythm Lie: Longitudinal Maternal RT Presentation: Breech Placenta: Posterior Membrane Desc: Monochorionic - diamniotic Membrane Size: Normal Amniotic Fluid DEANNA FV: Within normal limits Largest Pocket(cm) 2.8 - BIOPHYSICAL EVALUATION (FETUS B): Amniotic F.V: Within normal limits F. Tone: Observed F. Movement: Observed Score: 06/12 F. Breathing: Observed - BIOMETRY (FETUS B): BPD: 72.2 mm G.Age: 29w 0d 21 % OFD: 95.5 mm HC: 267.9 mm G.Age: 29w 1d 10 % AC: 206.3 mm G.Age: 25w 1d < 1 % FL: 49 mm G.Age: 26w 3d < 1 % HUM: 43.9 mm G.Age: 26w 0d < 5 % LV: 5.05 mm TIB: 43.7 mm G.Age: 27w 0d < 5 % FIB: 42 mm G.Age: 26w 0d 24 % CI: (more content not included)... Normal [facility] US UMBILICAL ARTERY DOPPLERo n 09-11-2022 US UMBILICAL ARTERY DOPPLER - OBSTETRICS REPORT (Signed Final 09/11/2022 12:26 pm) - PATIENT INFO: ID #: [id number] : [birth year] (32 yrs)(F) Name: ALAINA YODER Visit Date: 09/11/2022 09:13 am - PERFORMED BY: Attending: Brissa Wallace DO, FACOG Performed By: Lindy Du RDMS Referred By: LENA ALLISON Location: [facility] IP Visit Type: Inpatient - Hospital - SERVICE(S) PROVIDED: [place] [address] [place] [address] US Doppler umbilical art 18625 US Doppler umbilical art 24142 BPP w/out NST 86343 BPP w/out NST 07196 US Doppler MCA 12114 US Doppler MCA 65202 - INDICATIONS: Twin , monochorionic/diamnioti c, O30.033 third trimester Twin , monochorionic/diamnioti c, O30.033 third trimester Twin , monochorionic/diamnioti c, O30.033 third trimester Twin , monochorionic/diamnioti c, O30.033 third trimester Twin , monochorionic/diamnioti c, O30.033 third trimester Twin , monochorionic/diamnioti c, O30.033 third trimester Twin , monochorionic/diamnioti c, O30.033 third trimester Twin , monochorionic/diamnioti c, O30.033 third trimester - VITAL SIGNS: Height: 5'8 - EVALUATION (FETUS A): Num Of Fetuses: 2 Heart Rate(bpm): 130 Cardiac Activity: Regular rhythm Lie: Longitudinal Maternal LT Presentation: Cephalic Placenta: Posterior Membrane Desc: Monochorionic - diamniotic Membrane Size: Normal Amniotic Fluid DEANNA FV: Within normal limits Largest Pocket(cm) 3.3 - BIOPHYSICAL EVALUATION (FETUS A): Amniotic F.V: Within normal limits F. Tone: Observed F. Movement: Observed Score: 8/8 F. Breathing: Observed - BIOMETRY (FETUS A): BPD: 80.3 mm G.Age: 32w 2d 97 % OFD: 104.3 mm HC: 294.7 mm G.Age: 32w 4d 92 % AC: 257.8 mm G.Age: 30w 0d 56 % FL: 55.6 mm G.Age: 29w 2d 27 % LV: 4.48 mm CI: 77.0 % 70 - 86 FL/HC: 18.9 % 19.2 - 21.4 HC/AC: 1.14 0.99 - 1.21 FL/BPD: 69.2 % 71 - 87 FL/AC: 21.6 % 20 - 24 Est. FW: 1520 gm 3 lb 6 oz 58 % FW Discordancy: 0 \ 40 % - GESTATIONAL AGE (FETUS A): Clinical DEWEY: 29w 4d DEWEY: 11/23/22 U/S Today: 31w 0d DEWEY: 11/13/22 Best: 29w 4d Det. By: Clinical DEWEY DEWEY: 11/23/22 - ANATOMY (FETUS A): Cranium: Normal appearance Cavum: Normal appearance Ventricles: Normal appearance Choroid Plexus: Normal appearance Cerebellum: Normal appearance Thoracic: Normal appearance Heart: Normal appearance RVOT: Normal appearance LVOT: Normal appearance Diaphragm: Normal appearance Stomach: Normal appearance Abdomen: Normal appearance Abdominal Wall: Normal appearance Cord Vessels: Normal 3-Vessel Cord Kidneys: Normal appearance Bladder: Normal appearance Upper Extremities: Present Lower Extremities: Present - DOPPLER - VESSELS (FETUS A): Umbilical Artery S/D %tile RI %tile PSV (cm/s) 2.76 43 0.63 43 45.01 Middle Cerebral Artery PSV MoM (cm/s) 28.89 < 1 Ductus Venosus Normal Comment: The umbilical artery Doppler S/D is within normal limits for this gestational age. MCA Doppler velocities obtained are WNL. - EVALUATION (FETUS B): Num Of Fetuses: 2 Heart Rate(bpm): 135 Cardiac Activity: Regular rhythm Lie: Longitudinal Maternal RT Presentation: Breech Placenta: Posterior Membrane Desc: Monochorionic - diamniotic Membrane Size: Normal Amniotic Fluid DEANNA FV: Within normal limits Largest Pocket(cm) 2.8 - BIOPHYSICAL EVALUATION (FETUS B): Amniotic F.V: Within normal limits F. Tone: Observed F. Movement: Observed Score: 8/8 F. Breathing: Observed - BIOMETRY (FETUS B): BPD: 72.2 mm G.Age: 29w 0d 21 % OFD: 95.5 mm HC: 267.9 mm G.Age: 29w 1d 10 % AC: 206.3 mm G.Age: 25w 1d < 1 % FL: 49 mm G.Age: 26w 3d < 1 % HUM: 43.9 mm G.Age: 26w 0d < 5 % LV: 5.05 mm TIB: 43.7 mm G.Age: 27w 0d < 5 % FIB: 42 mm G.Age: 26w 0d 24 % CI: (more content not included)... Normal [facility] US BIOPHYSICAL PROFILE WO NON STRESS TESTINGon 09-08-2022 US BIOPHYSICAL PROFILE WO NON STRESS TESTING - OBSTETRICS REPORT (Signed Final 09/08/2022 09:25 am) - PATIENT INFO: ID #: [id number] : [birth year] (32 yrs)(F) Name: ALAINA YODER Visit Date: 09/08/2022 09:10 am - PERFORMED BY: Attending: Raquel Ochoa Performed By: Marylou Yun Referred By: LENA ALLISON Visit Type: Inpatient - Hospital - SERVICE(S) PROVIDED: BPP w/out NST 53963 BPP w/out NST 11979 US Doppler umbilical art 52683 US Doppler umbilical art 53463 - INDICATIONS: Jeffery Twins IUGR [facility] Known Heart Defects Baby B- Reverse End Diastolic Flow - VITAL SIGNS: Height: 5'8 - EVALUATION (FETUS A): Num Of Fetuses: 2 Heart Rate(bpm): 142 Cardiac Activity: Regular rhythm Lie: Longitudinal Maternal LT Presentation: Cephalic Placenta: Posterior Membrane Desc: Monochorionic - diamniotic Amniotic Fluid DEANNA FV: Within normal limits Largest Pocket(cm) 4.1 RUQ(cm) 4.1 - BIOPHYSICAL EVALUATION (FETUS A): Amniotic F.V: Within normal limits F. Tone: Observed F. Movement: Observed Score: 8/8 F. Breathing: Observed - BIOMETRY (FETUS A): - GESTATIONAL AGE (FETUS A): Clinical DEWEY: 29w 1d DEWEY: 11/23/22 Best: 29w 1d Det. By: Clinical DEWEY DEWEY: 11/23/22 - DOPPLER - VESSELS (FETUS A): Umbilical Artery S/D %tile RI %tile PI %tile PSV (cm/s) 2.11 8 0.52 4 0.72 5 71.92 - EVALUATION (FETUS B): Num Of Fetuses: 2 Heart Rate(bpm): 163 Cardiac Activity: Regular rhythm Lie: Maternal RT, Oblique Presentation: Cephalic Placenta: Posterior Amniotic Fluid DEANNA FV: Within normal limits Largest Pocket(cm) 5.9 RUQ(cm) 5.9 - BIOPHYSICAL EVALUATION (FETUS B): Amniotic F.V: Within normal limits F. Tone: Observed F. Movement: Observed Score: 06/12 F. Breathing: Observed - BIOMETRY (FETUS B): - GESTATIONAL AGE (FETUS B): Clinical DEWEY: 29w 1d DEWEY: 11/23/22 Best: 29w 1d Det. By: Clinical DEWEY DEWEY: 11/23/22 - DOPPLER - VESSELS (FETUS B): Umbilical Artery S/D %tile RI %tile PI %tile PSV (cm/s) 4.17 95 0.76 93 1.52 > 97.5 34.04 Umbilical Artery ADFV Yes - - RECOMMENDATIONS: Continued IP management BPPs and Doppler studies M/W/F Next growth 09/11 Ultrasound is not diagnostic of chromosomal aneuploidy and does not detect all subtle defects. Normal ultrasound findings do not guarantee normal outcomes. - Raquel Ochoa Electronically Signed Final Report 09/08/2022 09:25 am - IMPRESSION: - Monochorionic Diamniotic living fetuses with a gestational age of 29w 1d based on the reported clinical dates. - Normal amniotic fluid for each fetus. - Bladder is visualized for each fetus. - There is no evidence of hydrops fetalis for each fetus. - BPP 06/12 for both twins -Twin B with some intermittent diastolic flow, but continues to be mostly AEDF again today. [facility] Progress Noteon 09-07-2022 Progress Note --- Attestation signed by Raquel Ochoa MD at 09/07/2022 11:21 AM M ATTENDING I have seen and examined the patient and agree with the assessment and plan as documented in Dr. Toney's note. The patient is a 32yo at 29 0/7 weeks with mono/di twins, complicated by Pulmonary stenosis of Twin A and FGR of Twin B with mostly AEDF of UA Doppler, but has been intermittently reversed in the past. She is now HD#15. S/p BMZ and rescue BMZ. Monitoring is TID 1hr NST with BPP/UA Doppler M/W/F Vitals: 09/07/22 0824 BP: 108/70 Pulse: 73 Resp: 18 Temp: 36.9 ?C (98.5 ?F) SpO2: 98% Alert and oriented, NAD Gravid nontender Lab Results Component Value Date WBC 10.1 09/05/2022 HGB 12.1 09/05/2022 HCT 35.2 09/05/2022 MCV 99.2 (H) 09/05/2022 PLT 209 09/05/2022 Most recent NST- reactive and reassuring x 2 BPP yesterday, 09/06: 06/12 for both twins, normal DVPs, Twin B UA Doppler with mostly AEDF Plan: Continue inpatient management and monitoring as scheduled. Delivery for persistent Cat 2 or 3 tracing. Candidate for mag for LAB SUPPORT SERVICE TECH if delivery indicated. Otherwise goal delivery is 30-32 weeks Followup echo from 2 days prior 20 minutes spent in total floor time today for review of records, patient interview and exam, documentation and coordination of care with care teams. Raquel Ochoa MD Maternal Medicine Service Resident Progress Note 09/07/2022 6:21 AM 08/24/2022 Hospital Day: 15 Alaina Yoder, 32 y.o. 29w0d Patient has been seen and examined. Pt has no complaints this morning. Positive movement Negative vaginal bleeding Negative LOF Negative Contractions Vitals: 09/05/22 0843 09/05/22200909/06/22 0833 09/06/22 1933 BP: 115/71 116/67 108/73 130/79 BP Location: Right arm Right arm Right arm Left arm Patient Position: Sitting Lying Sitting Sitting Pulse: 72 79 74 84 Resp: 18 20 18 20 Temp: 37 ?C (98.6 ?F) 37.1 ?C (98.8 ?F) 36.6 ?C (97.8 ?F) 37.3 ?C (99.1 ?F) TempSrc: Temporal Temporal Temporal Temporal SpO2: 98% 98% 97% 97% Weight: Height: Twin A FHT: 140, moderate variability Accels: present Decels: absent Twin B FHT: 150, moderate variability Accels: present Decels: Possible late decel around 2134 last night Contractions: None Physical Exam: Gen: NAD HEENT: Normocephalic, Atraumatic, EOMI, MMM Resp: CTABL, no WRR Card: RRR S1S2 Abd: soft, gravid, NTND, no rebound, no guarding. negative fundal tenderness Ext: No LE edema, no calf tenderness or swelling Medications: Current Facility-Administered Medications Medication Dose Route Frequency Provider Last Rate Last Admin acetaminophen (Tylenol) tablet 650 mg 650 mg Oral q4h PRN Ty Hoffmann MD 650 mg at 09/04/222052 Or acetaminophen (Tylenol) suppository 650 mg 650 mg Rectal q4h PRN Ty Hoffmann MD aluminum & magnesium hydroxide-simethicone (Mylanta) 200-200-20 MG/5ML oral suspension 30 mL 30 mL Oral 4x daily AC & HS Mark R Hill, DO 30 mL at 09/05/222057 aspirin EC tablet 81 mg 81 mg Oral Daily Ty Hoffmann MD 81 mg at 09/06/22 104 docusate sodium (Colace) capsule 100 mg 100 mg Oral Daily Ty Hoffmann MD 100 mg at 09/06/22 1045 folic acid (Folvite) tablet 1 mg 1 mg Oral Daily Ty Hoffmann MD 1 mg at 09/06/22 1045 ondansetron ODT (Zofran-ODT) disintegrating tablet 4 mg 4 mg Oral q8h PRN Ty Hoffmann MD Or ondansetron (Zofran) injection 4 mg 4 mg IntraVENous q6h PRN Ty Hoffmann MD polyethylene glycol (PEG) 3350 (Miralax) packet 17 g 17 g Oral Daily Ty Hoffmann MD Gummies 0.18-25 MG chewable tablet 1 Piece 1 Piece Oral Daily Ty Hoffmann MD 1 Piece at 09/06/22 0900 sodium chloride (Pamlico) 0.65 % nasal spray 2 spray 2 spray Each Nostril PRN Ty Hoffmann MD sodium chloride 0.9 % infusion 5-250 mL/hr IntraVENous PRN Ty Hoffmann MD sodium chloride 0.9% (NS) flush 5-40 mL 5-40 mL IntraVENous q12h Ty Hoffmann MD sodium chloride 0.9% (NS) flush 5-40 mL 5-40 mL IntraVENous PRN Ty Hoffmann MD Assessment/Plan: Alaina Yoder is a 32 y.o. female 29w0d [place]/Di Twins sFGR Twin B Intermittent REDF of Twin B - Discordant growth noted since anatomy scan - s/p BMZ 07/27-07/28 at [place], rBMZ on admission here 08/24-08/25 - s/p magnesium sulfate for neuroprotection - Growth US 08/28: - Twin A: 1190g (59%ile) - Twin B: 767g (19%ile), AC <1%ile - 36% discordance - UAD/BPP 09/01: intermittent AEDF in twin B - UAD on 08/31 showed intermittent REDF in Baby B - BPP/UAD 09/04: 06/12x2, Baby A normal UAD, Baby B intermittent REDF/AEDF - BPP/UAD 09/06: BPP 06/12 for both twins, normal DVPs, Twin B UA Doppler with mostly AEDF (read per Dr. Ochoa, official read still pending) - Inpatient management until delivery - s/p NICU consult (more content not included)... Normal [facility] Progress Noteon 09-06-2022 Progress Note --- Attestation signed by Raquel Ochoa MD at 09/06/2022 3:51 PM (Updated) MFM ATTENDING I have seen and examined the patient and agree with the assessment and plan as documented in Dr. Toney's note. The patient is a 32yo at 28 6/7 weeks with mono/di twins, complicated by Pulmonary stenosis of Twin A and FGR of Twin B with mostly AEDF of UA Doppler, but has been intermittently reversed in the past. She is now HD#14. S/p BMZ and rescue BMZ. Monitoring is TID 1hr NST with BPP/UA Doppler M/W/F Vitals: 09/06/22 0833 BP: 108/73 Pulse: 74 Resp: 18 Temp: 36.6 ?C (97.8 ?F) SpO2: 97% Alert and oriented, NAD Gravid nontender Lab Results Component Value Date WBC 10.1 09/05/2022 HGB 12.1 09/05/2022 HCT 35.2 09/05/2022 MCV 99.2 (H) 09/05/2022 PLT 209 09/05/2022 Most recent NST- reactive and reassuring x 2 BPP today 06/12 for both twins, normal DVPs, Twin B UA Doppler with mostly AEDF Plan: Continue inpatient management and monitoring as scheduled. Delivery for persistent Cat 2 or 3 tracing. Candidate for mag for LAB SUPPORT SERVICE TECH if delivery indicated. Otherwise goal delivery is 30-32 weeks Followup echo from 2 days prior 20 minutes spent in total floor time today for review of records, patient interview and exam, documentation and coordination of care with care teams. Raquel Ochoa MD Maternal Medicine Service Resident Progress Note 09/06/2022 6:17 AM 08/24/2022 Hospital Day: 14 Alaina Yoder, 32 y.o. 28w6d Patient has been seen and examined. Pt has no complaints this morning. Positive movement Negative vaginal bleeding Negative LOF Negative Contractions Vitals: 09/04/22 0820 09/04/22 1946 09/05/22 0843 09/05/222009 BP: 109/72 109/70 115/71 116/67 BP Location: Right arm Right arm Patient Position: Sitting Lying Pulse: 96 93 72 79 Resp: 20 18 18 20 Temp: 37.1 ?C (98.8 ?F) 37.4 ?C (99.4 ?F) 37 ?C (98.6 ?F) 37.1 ?C (98.8 ?F) TempSrc: Temporal Temporal Temporal Temporal SpO2: 98% 97% 98% 98% Weight: Height: Twin A FHT: 140, moderate variability Accels: present Decels: absent Twin B FHT: 150, moderate variability Accels: absent Decels: absent Contractions: none Physical Exam: Gen: NAD HEENT: Normocephalic, Atraumatic, EOMI, MMM Resp: CTABL, no WRR Card: RRR S1S2 Abd: soft, gravid, NTND, no rebound, no guarding. negative fundal tenderness Ext: No LE edema, no calf tenderness or swelling Medications: Current Facility-Administered Medications Medication Dose Route Frequency Provider Last Rate Last Admin acetaminophen (Tylenol) tablet 650 mg 650 mg Oral q4h PRN Ty Hoffmann MD 650 mg at 09/04/222052 Or acetaminophen (Tylenol) suppository 650 mg 650 mg Rectal q4h PRN Ty Hoffmann MD aluminum & magnesium hydroxide-simethicone (Mylanta) 200-200-20 MG/5ML oral suspension 30 mL 30 mL Oral 4x daily AC & HS Mark R Hill, DO 30 mL at 09/05/222057 aspirin EC tablet 81 mg 81 mg Oral Daily Ty Hoffmann MD 81 mg at 09/05/22 0959 docusate sodium (Colace) capsule 100 mg 100 mg Oral Daily Ty oHffmann MD 100 mg at 09/05/22 1000 folic acid (Folvite) tablet 1 mg 1 mg Oral Daily Ty Hoffmann MD 1 mg at 09/05/22 1000 ondansetron ODT (Zofran-ODT) disintegrating tablet 4 mg 4 mg Oral q8h PRN Ty Hoffmann MD Or ondansetron (Zofran) injection 4 mg 4 mg IntraVENous q6h PRN Ty Hoffmann MD polyethylene glycol (PEG) 3350 (Miralax) packet 17 g 17 g Oral Daily Ty Hoffmann MD Gummies 0.18-25 MG chewable tablet 1 Piece 1 Piece Oral Daily Ty Hoffmann MD 1 Piece at 09/05/22 0900 sodium chloride (Pamlico) 0.65 % nasal spray 2 spray 2 spray Each Nostril PRN Ty Hoffmann MD sodium chloride 0.9 % infusion 5-250 mL/hr IntraVENous PRN Ty Hoffmann MD sodium chloride 0.9% (NS) flush 5-40 mL 5-40 mL IntraVENous q12h Ty Hoffmann MD sodium chloride 0.9% (NS) flush 5-40 mL 5-40 mL IntraVENous PRN Ty Hoffmann MD Assessment/Plan: Alaina Yoder is a 32 y.o. female 28w6d [place]/Di Twins sFGR Twin B Intermittent REDF of Twin B - Discordant growth noted since anatomy scan - s/p BMX 07/27-07/[address] 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 Jordan (more content not included)... Normal [facility] BIOPHYSICAL PROFILE WO NON STRESS TESTINGon 09-06-2022 US BIOPHYSICAL PROFILE WO NON STRESS TESTING - OBSTETRICS REPORT (Signed Final 09/06/2022 01:13 pm) - PATIENT INFO: ID #: [id number] : [birth year] (32 yrs)(F) Name: ALAINA YODER Visit Date: 09/06/2022 08:36 am - PERFORMED BY: Attending: Raquel Ochoa Performed By: Ander Elena Referred By: LENA ALLISON Location: Inpatient- Hospital Visit Type: Inpatient - Hospital - SERVICE(S) PROVIDED: BPP w/out NST 11525 BPP w/out NST 45397 US Doppler umbilical art 59253 US Doppler umbilical art 35358 - INDICATIONS: Jeffery Twins IUGR [facility] Known Heart Defects Baby B- Reverse End Diastolic Flow - VITAL SIGNS: Weight (lb): 158 Height: 5'8 BMI: 24.02 - EVALUATION (FETUS A): Num Of Fetuses: 2 Heart Rate(bpm): 152 Cardiac Activity: Regular rhythm Lie: Maternal LT Presentation: Cephalic Placenta: Posterior Membrane Desc: Monochorionic - diamniotic Amniotic Fluid DEANNA FV: Within normal limits Largest Pocket(cm) 2.97 RUQ(cm) 2.97 - BIOPHYSICAL EVALUATION (FETUS A): Amniotic F.V: Within normal limits F. Tone: Observed F. Movement: Observed Score: 06/12 F. Breathing: Observed - BIOMETRY (FETUS A): - GESTATIONAL AGE (FETUS A): Clinical DEWEY: 28w 6d DEWEY: 11/23/22 Best: 28w 6d Det. By: Clinical DEWEY DEWEY: 11/23/22 - DOPPLER - VESSELS (FETUS A): Umbilical Artery S/D %tile RI %tile PI %tile PSV (cm/s) 2.23 11 0.55 8 0.78 11 63.86 - EVALUATION (FETUS B): Num Of Fetuses: 2 Heart Rate(bpm): 144 Cardiac Activity: Regular rhythm Lie: Maternal RT Presentation: Cephalic Placenta: Posterior Membrane Desc: Monochorionic - diamniotic Amniotic Fluid DEANNA FV: Within normal limits Largest Pocket(cm) 5.85 - BIOPHYSICAL EVALUATION (FETUS B): Amniotic F.V: Within normal limits F. Tone: Observed F. Movement: Observed Score: 8/8 F. Breathing: Observed - BIOMETRY (FETUS B): - GESTATIONAL AGE (FETUS B): Clinical DEWEY: 28w 6d DEWEY: 11/23/22 Best: 28w 6d Det. By: Clinical DEWEY DEWEY: 11/23/22 - DOPPLER - VESSELS (FETUS B): Umbilical Artery S/D %tile RI %tile PSV (cm/s) 7.62 > 97.5 0.87 > 97.5 48.66 Umbilical Artery ADFV Yes Comment: The umbilical artery Doppler shows absent end diastolic flow intermittenly - - RECOMMENDATIONS: Continued IP management BPPs and Doppler studies M/W/F Next growth 09/11 Ultrasound is not diagnostic of chromosomal aneuploidy and does not detect all subtle defects. Normal ultrasound findings do not guarantee normal outcomes. - Raquel Ochoa Electronically Signed Final Report 09/06/2022 01:13 pm - IMPRESSION: - Monochorionic Diamniotic living fetuses with a gestational age of 28w 6d based on the reported clinical dates. - Normal amniotic fluid for each fetus. - Bladder is visualized for each fetus. - There is no evidence of hydrops fetalis for each fetus. -BPP 06/12 for both twins -Twin B with some intermittent diastolic flow, but mostly AEDF today. [facility] UMBILICAL ARTERY DOPPLERo n 09-06-2022 US UMBILICAL ARTERY DOPPLER - OBSTETRICS REPORT (Signed Final 09/06/2022 01:13 pm) - PATIENT INFO: ID #: [id number] : [birth year] (32 yrs)(F) Name: ALAINA YODER Visit Date: 09/06/2022 08:36 am - PERFORMED BY: Attending: Raquel Ochoa Performed By: Ander Elena Referred By: LENA ALLISON Location: Inpatient- Hospital Visit Type: Inpatient - Hospital - SERVICE(S) PROVIDED: BPP w/out NST 78669 BPP w/out NST 98705 US Doppler umbilical art 14302 US Doppler umbilical art 16096 - INDICATIONS: Jeffery Twins IUGR [facility] Known Heart Defects Baby B- Reverse End Diastolic Flow - VITAL SIGNS: Weight (lb): 158 Height: 5'8 BMI: 24.02 - EVALUATION (FETUS A): Num Of Fetuses: 2 Heart Rate(bpm): 152 Cardiac Activity: Regular rhythm Lie: Maternal LT Presentation: Cephalic Placenta: Posterior Membrane Desc: Monochorionic - diamniotic Amniotic Fluid DEANNA FV: Within normal limits Largest Pocket(cm) 2.97 RUQ(cm) 2.97 - BIOPHYSICAL EVALUATION (FETUS A): Amniotic F.V: Within normal limits F. Tone: Observed F. Movement: Observed Score: 88 F. Breathing: Observed - BIOMETRY (FETUS A): - GESTATIONAL AGE (FETUS A): Clinical DEWEY: 28w 6d DEWEY: 11/23/22 Best: 28w 6d Det. By: Clinical DEWEY DEWEY: 11/23/22 - DOPPLER - VESSELS (FETUS A): Umbilical Artery S/D %tile RI %tile PI %tile PSV (cm/s) 2.23 11 0.55 8 0.78 11 63.86 - EVALUATION (FETUS B): Num Of Fetuses: 2 Heart Rate(bpm): 144 Cardiac Activity: Regular rhythm Lie: Maternal RT Presentation: Cephalic Placenta: Posterior Membrane Desc: Monochorionic - diamniotic Amniotic Fluid DEANNA FV: Within normal limits Largest Pocket(cm) 5.85 - BIOPHYSICAL EVALUATION (FETUS B): Amniotic F.V: Within normal limits F. Tone: Observed F. Movement: Observed Score: 06/12 F. Breathing: Observed - BIOMETRY (FETUS B): - GESTATIONAL AGE (FETUS B): Clinical DEWEY: 28w 6d DEWEY: 11/23/22 Best: 28w 6d Det. By: Clinical DEWEY DEWEY: 11/23/22 - DOPPLER - VESSELS (FETUS B): Umbilical Artery S/D %tile RI %tile PSV (cm/s) 7.62 > 97.5 0.87 > 97.5 48.66 Umbilical Artery ADFV Yes Comment: The umbilical artery Doppler shows absent end diastolic flow intermittenly - - RECOMMENDATIONS: Continued IP management BPPs and Doppler studies M/W/F Next 09/11 Ultrasound is not diagnostic of chromosomal aneuploidy and does not detect all subtle defects. Normal ultrasound findings do not guarantee normal outcomes. - Raquel Ochoa Electronically Signed Final Report 09/06/2022 01:13 pm - IMPRESSION: - Monochorionic Diamniotic living fetuses with a gestational age of 28w 6d based on the reported clinical dates. - Normal amniotic fluid for each fetus. - Bladder is visualized for each fetus. - There is no evidence of hydrops fetalis for each fetus. -BPP 06/12 for both twins -Twin B with some intermittent diastolic flow, but mostly AEDF today. Normal [facility] Progress Noteon 09-05-[address] Rose notified of pt c/o heartburn and requesting maolox-will put order in Normal [facility] Progress Note --- Attestation signed by Brissa Wallace DO at 09/05/2022 3:42 PM Attending Supervising Physician's Attestation Statement I performed a history and physical examination on the patient and discussed the management with the resident physician. I reviewed and agree with the findings and plan as documented in the note. 32 y.o. at 28w5d admitted 12 days ago for sIUGR for twin B with iREDF in a mono/di twin . Additionally, twin A with known pulmonic stenosis. echo from 09/04 pending. FHR tracings reviewed and reassuring at this time. Plan for ongoing inpt management with TID FHR tracing and 3x per week UA Doppler assessment (M, W, F). If persistent REDF or non-reassuring FHR tracing, would consider delivery. I spent 20 minutes in the visit, with more than 50% of the total wurp-[id number]-joef time of the visit in counseling/coordination of care. Maternal Medicine Service Resident Progress Note 09/05/2022 6:07 AM 08/24/2022 Hospital Day: 13 Alaina Yoder, 32 y.o. 28w5d Patient has been seen and examined. Pt has no complaints this morning. Reported a headache last night that resolved with Tylenol. Positive movement Negative vaginal bleeding Negative LOF Negative Contractions Vitals: 09/03/22 0802 09/03/22201309/04/22 0820 09/04/22 1946 BP: 104/73 119/82 109/72 109/70 BP Location: Right arm Patient Position: Sitting Pulse: 71 95 96 93 Resp: 18 17 20 18 Temp: 36.4 ?C (97.6 ?F) 36.8 ?C (98.2 ?F) 37.1 ?C (98.8 ?F) 37.4 ?C (99.4 ?F) TempSrc: Temporal Temporal Temporal Temporal SpO2: 98% 97% 98% 97% Weight: Height: Twin A FHT: 140, moderate variability Accels: present Decels: absent Twin B FHT: 150, moderate variability Accels: present Decels: absent Contractions: none Physical Exam: Gen: NAD HEENT: Normocephalic, Atraumatic, EOMI, MMM Resp: CTABL, no WRR Card: RRR S1S2 Abd: soft, gravid, NTND, no rebound, no guarding. BS negative fundal tenderness Ext: No LE edema, no calf tenderness or swelling Medications: Current Facility-Administered Medications Medication Dose Route Frequency Provider Last Rate Last Admin acetaminophen (Tylenol) tablet 650 mg 650 mg Oral q4h PRN Ty Hoffmann MD 650 mg at 09/04/222052 Or acetaminophen (Tylenol) suppository 650 mg 650 mg Rectal q4h PRN Ty Hoffmann MD aspirin EC tablet 81 mg 81 mg Oral Daily Ty Hoffmann MD 81 mg at 09/04/22 0830 docusate sodium (Colace) capsule 100 mg 100 mg Oral Daily Ty Hoffmann MD 100 mg at 09/04/22 0830 folic acid (Folvite) tablet 1 mg 1 mg Oral Daily Ty Hoffmann MD 1 mg at 09/04/22 0830 ondansetron ODT (Zofran-ODT) disintegrating tablet 4 mg 4 mg Oral q8h PRN Ty Hoffmann MD Or ondansetron (Zofran) injection 4 mg 4 mg IntraVENous q6h PRN Ty Hoffmann MD polyethylene glycol (PEG) 3350 (Miralax) packet 17 g 17 g Oral Daily Ty Hoffmann MD Gummies 0.18-25 MG chewable tablet 1 Piece 1 Piece Oral Daily Ty Hoffmann MD 1 Piece at 09/04/22 0900 sodium chloride (Pamlico) 0.65 % nasal spray 2 spray 2 spray Each Nostril PRN Ty Hoffmann MD sodium chloride 0.9 % infusion 5-250 mL/hr IntraVENous PRN Ty Hoffmann MD sodium chloride 0.9% (NS) flush 5-40 mL 5-40 mL IntraVENous q12h Ty Hoffmann MD sodium chloride 0.9% (NS) flush 5-40 mL 5-40 mL IntraVENous PRN Ty Hoffmann MD Assessment/Plan: Alaina Yoder is a 32 y.o. female 28w5d [place]/Di Twins sFGR Twin B Intermittent REDF of Twin B - Discordant growth noted since anatomy scan - s/p BMX 07/27-07/[address] 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 Jordan of pediatric cardiology - Repeat echo 09/04: reassuring per patient, pending official report Abnormal US - Hx thickened NT for twin A on 05/04 US, RESOLVED on 05/22 US - Velamentous cord insertion for twin B - Cavum vergae noted on 08/17 US for twin B, likely normal variant IUP @ 28w5d - Dating by LMP - Vtx/Vtx 08/31 - Monitorin-2 hrs TID - Diet:General - BMZx2 07/27-07/28; rBMZ 08/24-08/25 Further plan pending d/w attending. CHACORTA Toney, DO 09/05/2022, 6:07 AM [facility] 09-04-2022 [facility] {\rtf1\ghygwq13414\a nsi \doetepv9854\ftnbj\uc1\ deff0 \X0A\{\fonttbl{\f0 \fnil \fcharset0 [place];}{\f1 \fnil SEGOE UI;}}\X0A\{\colortbl ;\vwz806\\blue2 55 ;\red79\green79\blue79 ;\red95\green95\blue95 ;\red0\green0\blue0 ;\red0\green0\blue0 ;}\X0A\{\stylesheet{\f0 \fs24 Normal;}{\cs1 Default Paragraph Font;}{\s2\snext0 heading 1;}{\s3\snext0 heading 2;}{\s4\snext0 heading 3;}{\s5\snext0 heading 4;}{\s6\snext0 heading 5;}{\s7\snext0 heading 6;}}\X0A\{\*\revtbl{Unk nown;}}\X0A\aqzkrs6831 0\vqommz51095\vduhu786\ uybgy049\wjryp516\margb 720\trvenxr759\footery7 20\nogrowautofit\deftab 720\formshade\dntblnsbd b\fet4\aendnotes\aftnnr lc\pgbrdrhead\pgbrdrfoo t \X0A\sectd\bhawza42512 \dwegmi19464\guttersxn0 \sahpokmi037\ewjgwkjd20 6\cpfdcunn596\margbsxn7 20\epccydw428\hieccal21 0\sbkpage\pgncont\pgnde c \X0A\plain\plain\f0\fs 24\pard\ssparaaux0\s0\s l24\ltrpar\ql\keepn\david in\f0\fs24{\*\bkmkstart Care Coordination by Sun Soto RN at 09/04/2022 2:28 PM}{\*\bkmkend Care Coordination by Sun Soto RN at 09/04/2022 2:28 PM}\plain\f0\fs20\hich\ f0\dbch\f0\loch\f0\fs20 \v \X0A\bmk\par \X0A\trowd\trgaph0\las trow\trpaddl0\trpaddfl3 \trpaddr0\trpaddfr3\trl eft0\bntl318\ltrrow \X0A\clvertalb\clbrdrb \brdrs\\\ mpayp86089 \X0A\pard\intbl\sspara aux0\s0\sl24\ltrpar\ql\ keepn\plain\f0\fs24{\*\ bkmkstart Care Coordination by Sun Soto RN at 09/04/2022 2:28 PM}{\*\bkmkend Care Coordination by Sun Soto RN at 09/04/2022 2:28 PM}\plain\f0\fs20\hich\ f0\dbch\f0\loch\f0\cf2\ fs20\ltrch\b \X0A\Care Coordination by Sun Soto RN at 09/04/2022 2:28 PM\plain\f0\fs20\hich\f 0\dbch\f0\loch\f0\fs20 \cell \X0A\intbl\row \X0A\pard\ssparaaux0\s 0\ql\plain\f0\fs24\plai n\f0\fs20\hich\f0\dbch\ f0\loch\f0\fs20\pard\se ct \X0A\sectd\srifkw76857 \gkfoym82262\guttersxn0 \opiipvdc448\nghfybos73 6\wrslskxy738\margbsxn7 20\qemnvrf717\jobnpmj88 0\sbknone\pgncont\pgnde c \X0A\{\header \X0A\trowd\trgaph0\las trow\trpaddl0\trpaddfl3 \trpaddr0\trpaddfr3\trl eft0\zzpc024\ltrrow \X0A\clvertalb\clbrdrb \brdrs\\\ wsdak00974 \X0A\pard\intbl\sspara aux0\s0\sl24\ltrpar\ql\ keepn\plain\f0\fs24\david in\f0\fs20\hich\f0\dbch \f0\loch\f0\cf2\fs20\lt rch\b Care Coordination by Sun Soto, MADELIN at 09/04/2022 2:28 PM (continued)\plain\f0\fs 20\hich\f0\dbch\f0\loch \f0\fs20 \cell \X0A\intbl\row \X0A\plain\f0\fs24}\X0 A\trowd\trgaph0\trpadd l0\trpaddfl3\trpaddr0\t rpaddfr3\trleft0\trkeep \X0A\clvertalt\cellx21 6 \X0A\clvertalt\cellx37 44 \X0A\clvertalt\cellx72 72 \X0A\clvertalt\cellx10 800 \X0A\pard\intbl\sspara aux0\s0\sl24\ql\keepn\p irvin\f0\fs24\plain\f0\f s20\hich\f0\dbch\f0\loc h\f0\fs20\cell \X0A\pard\intbl\sspara aux0\s0\li80\ri80\sl24\ ql\keepn\plain\f0\fs24\ plain\f0\fs20\hich\f0\d bch\f0\loch\f0\cf3\fs20 Author: \plain\f0\fs20\hich\f0\ dbch\f0\loch\f0\cf4\fs2 0 Sun Y. Deseptis, RN\plain\f0\fs20\hich\f 0\dbch\f0\loch\f0\fs20\ cell \X0A\pard\intbl\sspara aux0\s0\li80\ri80\sl24\ ql\keepn\plain\f0\fs24\ plain\f0\fs20\hich\f0\d bch\f0\loch\f0\cf3\fs20 Service: \plain\f0\fs20\hich\f0\ dbch\f0\loch\f0\cf4\fs2 0 Nursing\plain\f0\fs20\h ich\f0\dbch\f0\loch\f0\ fs20\cell \X0A\pard\intbl\sspara aux0\s0\li80\ri80\sl24\ ql\keepn\plain\f0\fs24\ plain\f0\fs20\hich\f0\d bch\f0\loch\f0\cf3\fs20 Author Type: \plain\f0\fs20\hich\f0\ dbch\f0\loch\f0\cf4\fs2 0 Registered Nurse\plain\f0\fs20\hic h\f0\dbch\f0\loch\f0\fs 20\cell \X0A\intbl\row \X0A\pard\intbl\sspara aux0\s0\sl24\ql\keepn\p irvin\f0\fs24\plain\f0\f s20\hich\f0\dbch\f0\loc h\f0\fs20\cell \X0A\pard\intbl\sspara aux0\s0\li80\ri80\sl24\ ql\keepn\plain\f0\fs24\ plain\f0\fs20\hich\f0\d bch\f0\loch\f0\cf3\fs20 Filed: \plain\f0\fs20\hich\f0\ dbch\f0\loch\f0\cf4\fs2 0 09/04/2022 2:35 PM\plain\f0\fs20\hich\f 0\dbch\f0\loch\f0\fs20\ cell \X0A\pard\intbl\sspara aux0\s0\li80\ri80\sl24\ ql\keepn\plain\f0\fs24\ plain\f0\fs20\hich\f0\d bch\f0\loch\f0\cf3\fs20 Date of Service: \plain\f0\fs20\hich\f0\ dbch\f0\loch\f0\cf4\fs2 0 09/04/2022 2:28 PM\plain\f0\fs20\hich\f 0\dbch\f0\loch\f0\fs20\ cell \X0A\pard\intbl\sspara aux0\s0\li80\ri80\sl24\ ql\keepn\plain\f0\fs24\ plain\f0\fs20\hich\f0\d bch\f0\loch\f0\cf3\fs20 Status: \plain\f0\fs20\hich\f0\ dbch\f0\loch\f0\cf4\fs2 0 Signed\plain\f0\fs20\hi ch\f0\dbch\f0\loch\f0\f s20\cell \X0A\intbl\row \X0A\trowd\trgaph0\las trow\trpaddl0\trpaddfl3 \trpaddr0\trpaddfr3\trl eft0\trkeep \X0A\clvertalt\cellx21 6 \X0A\clvertalt\cellx10 800 \X0A\pard\intbl\sspara aux0\s0\sl24\ql\keepn\p irvin\f0\fs24\plain\f0\f s20\hich\f0\dbch\f0\loc h\f0\fs20\cell \X0A\pard\intbl\sspara aux0\s0\li80\ri80\sl24\ ql\keepn\plain\f0\fs24\ plain\f0\fs20\hich\f0\d bch\f0\loch\f0\cf3\fs20 Branch Logistics Supervisor: \plain\f0\fs20\hich\f0\ dbch\f0\loch\f0\cf4\fs2 0 Sun Soto, RN (Registered Nurse)\plain\f0\fs20\hi ch\f0\dbch\f0\loch\f0\f s20\cell \X0A\intbl\row \X0A\trowd\trgaph0\las trow\trpaddl0\trpaddfl3 \trpaddr0\trpaddfr3\trl eft0 \X0A\clvertalt\cellx21 6 \X0A\clvertalt\cellx10 800 \X0A\pard\intbl\sspara aux0\s0\sl24\ql\plain\f 0\fs24\plain\f0\fs20\hi ch\f0\dbch\f0\loch\f0\f s20\cell \X0A\pard\intbl\sspara aux0\s0\li80\ri80\sl24\ ql\plain\f0\fs24\plain\ f0\fs20\hich (more content not included)... Normal [facility] Progress Noteon 09-04-2022 Progress Note {\rtf1\zdxrdw22853\a nsi \zzwrzdl0396\ftnbj\uc1\ deff0 \X0A\{\fonttbl{\f0 \fnil \fcharset0 [place];}{\f1 \fnil SEGOE UI;}}\X0A\{\colortbl ;\rsf110\\blue2 55 ;\red79\green79\blue79 ;\red95\green95\blue95 ;\red0\green0\blue0 ;\red0\green0\blue0 ;}\X0A\{\stylesheet{\f0 \fs24 Normal;}{\cs1 Default Paragraph Font;}{\s2\snext0 heading 1;}{\s3\snext0 heading 2;}{\s4\snext0 heading 3;}{\s5\snext0 heading 4;}{\s6\snext0 heading 5;}{\s7\snext0 heading 6;}}\X0A\{\*\revtbl{Unk nown;}}\X0A\clzhlm6780 0\yfaghc89277\kpzou040\ kkxiq286\qbdol469\margb 720\rgcrkeq318\footery7 20\nogrowautofit\deftab 720\formshade\dntblnsbd b\fet4\aendnotes\aftnnr lc\pgbrdrhead\pgbrdrfoo t \X0A\sectd\lkytsp12758 \rttloe81414\guttersxn0 \xtsopnbp021\lwngijep62 6\eezvkuzh844\margbsxn7 20\gxomkpl309\bewaypp99 0\sbkpage\pgncont\pgnde c \X0A\plain\plain\f0\fs 24\pard\ssparaaux0\s0\s l24\ltrpar\ql\keepn\david in\f0\fs24{\*\bkmkstart Progress Notes by Melly Elkins RN at 09/04/2022 3:30 PM}{\*\bkmkend Progress Notes by Melly Elkins RN at 09/04/2022 3:30 PM}\plain\f0\fs20\hich\ f0\dbch\f0\loch\f0\fs20 \v \X0A\bmk\par \X0A\trowd\trgaph0\las trow\trpaddl0\trpaddfl3 \trpaddr0\trpaddfr3\trl eft0\jcru104\ltrrow \X0A\clvertalb\clbrdrb \brdrs\\\ tqgpz34456 \X0A\pard\intbl\sspara aux0\s0\sl24\ltrpar\ql\ keepn\plain\f0\fs24{\*\ bkmkstart Progress Notes by Melly Elkins RN at 09/04/2022 3:30 PM}{\*\bkmkend Progress Notes by Melly BenjiTrini Elkins RN at 09/04/2022 3:30 PM}\plain\f0\fs20\hich\ f0\dbch\f0\loch\f0\cf2\ fs20\ltrch\b \X0A\Progress Notes by Melly MTrini Elkins RN at 09/04/2022 3:30 PM\plain\f0\fs20\hich\f 0\dbch\f0\loch\f0\fs20 \cell \X0A\intbl\row \X0A\pard\ssparaaux0\s 0\ql\plain\f0\fs24\plai n\f0\fs20\hich\f0\dbch\ f0\loch\f0\fs20\pard\se ct \X0A\sectd\uiqdfh67895 \fxgibc10152\guttersxn0 \inxrekbv708\liuecktu19 6\efgtgylt253\margbsxn7 20\erbvyko432\ilrorhi53 0\sbknone\pgncont\pgnde c \X0A\{\header \X0A\trowd\trgaph0\las trow\trpaddl0\trpaddfl3 \trpaddr0\trpaddfr3\trl eft0\tcvp132\ltrrow \X0A\clvertalb\clbrdrb \brdrs\\\ szeiz61911 \X0A\pard\intbl\sspara aux0\s0\sl24\ltrpar\ql\ keepn\plain\f0\fs24\david in\f0\fs20\hich\f0\dbch \f0\loch\f0\cf2\fs20\lt rch\b Progress Notes by Melly Elkins RN at 09/04/2022 3:30 PM (continued)\plain\f0\fs 20\hich\f0\dbch\f0\loch \f0\fs20 \cell \X0A\intbl\row \X0A\plain\f0\fs24}\X0 A\trowd\trgaph0\trpadd l0\trpaddfl3\trpaddr0\t rpaddfr3\trleft0\trkeep \X0A\clvertalt\cellx21 6 \X0A\clvertalt\cellx37 44 \X0A\clvertalt\cellx72 72 \X0A\clvertalt\cellx10 800 \X0A\pard\intbl\sspara aux0\s0\sl24\ql\keepn\p irvin\f0\fs24\plain\f0\f s20\hich\f0\dbch\f0\loc h\f0\fs20\cell \X0A\pard\intbl\sspara aux0\s0\li80\ri80\sl24\ ql\keepn\plain\f0\fs24\ plain\f0\fs20\hich\f0\d bch\f0\loch\f0\cf3\fs20 Author: \plain\f0\fs20\hich\f0\ dbch\f0\loch\f0\cf4\fs2 0 Melly Elkins, RN\plain\f0\fs20\hich\f 0\dbch\f0\loch\f0\fs20\ cell \X0A\pard\intbl\sspara aux0\s0\li80\ri80\sl24\ ql\keepn\plain\f0\fs24\ plain\f0\fs20\hich\f0\d bch\f0\loch\f0\cf3\fs20 Service: \plain\f0\fs20\hich\f0\ dbch\f0\loch\f0\cf4\fs2 0 Nursing\plain\f0\fs20\h ich\f0\dbch\f0\loch\f0\ fs20\cell \X0A\pard\intbl\sspara aux0\s0\li80\ri80\sl24\ ql\keepn\plain\f0\fs24\ plain\f0\fs20\hich\f0\d bch\f0\loch\f0\cf3\fs20 Author Type: \plain\f0\fs20\hich\f0\ dbch\f0\loch\f0\cf4\fs2 0 Registered Nurse\plain\f0\fs20\hic h\f0\dbch\f0\loch\f0\fs 20\cell \X0A\intbl\row \X0A\pard\intbl\sspara aux0\s0\sl24\ql\keepn\p irvin\f0\fs24\plain\f0\f s20\hich\f0\dbch\f0\loc h\f0\fs20\cell \X0A\pard\intbl\sspara aux0\s0\li80\ri80\sl24\ ql\keepn\plain\f0\fs24\ plain\f0\fs20\hich\f0\d bch\f0\loch\f0\cf3\fs20 Filed: \plain\f0\fs20\hich\f0\ dbch\f0\loch\f0\cf4\fs2 0 09/04/2022 3:30 PM\plain\f0\fs20\hich\f 0\dbch\f0\loch\f0\fs20\ cell \X0A\pard\intbl\sspara aux0\s0\li80\ri80\sl24\ ql\keepn\plain\f0\fs24\ plain\f0\fs20\hich\f0\d bch\f0\loch\f0\cf3\fs20 Date of Service: \plain\f0\fs20\hich\f0\ dbch\f0\loch\f0\cf4\fs2 0 09/04/2022 3:30 PM\plain\f0\fs20\hich\f 0\dbch\f0\loch\f0\fs20\ cell \X0A\pard\intbl\sspara aux0\s0\li80\ri80\sl24\ ql\keepn\plain\f0\fs24\ plain\f0\fs20\hich\f0\d bch\f0\loch\f0\cf3\fs20 Status: \plain\f0\fs20\hich\f0\ dbch\f0\loch\f0\cf4\fs2 0 Signed\plain\f0\fs20\hi ch\f0\dbch\f0\loch\f0\f s20\cell \X0A\intbl\row \X0A\trowd\trgaph0\las trow\trpaddl0\trpaddfl3 \trpaddr0\trpaddfr3\trl eft0\trkeep \X0A\clvertalt\cellx21 6 \X0A\clvertalt\cellx10 800 \X0A\pard\intbl\sspara aux0\s0\sl24\ql\keepn\p irvin\f0\fs24\plain\f0\f s20\hich\f0\dbch\f0\loc h\f0\fs20\cell \X0A\pard\intbl\sspara aux0\s0\li80\ri80\sl24\ ql\keepn\plain\f0\fs24\ plain\f0\fs20\hich\f0\d bch\f0\loch\f0\cf3\fs20 Branch Logistics Supervisor: \plain\f0\fs20\hich\f0\ dbch\f0\loch\f0\cf4\fs2 0 Melly MTrini Elkins, RN (Registered Nurse)\plain\f0\fs20\hi ch\f0\dbch\f0\loch\f0\f s20\cell \X0A\intbl\row \X0A\trowd\trgaph0\las trow\trpaddl0\trpaddfl3 \trpaddr0\trpaddfr3\trl eft0 \X0A\clvertalt\cellx21 6 \X0A\clvertalt\cellx10 800 \X0A\pard\intbl\sspara aux0\s0\sl24\ql\plain\f 0\fs24\plain\f0\fs20\hi ch\f0\dbch\f0\loch\f0\f s20\cell \X0A\pard\intbl\sspara aux0\s0\li80\ri80\sl24\ ql\plain\f0\fs24\plain\ f0\fs20\hich\f0\dbch\f0 \loch\f0\fs20\cell \X0A (more content not included)... Normal [facility] State Authentication Interface Message Text Returning patient 09/06/2022 RE: Alaina Yoder : 1990 AGE: 32 y.o. [facility]#: [id number] Gestational Age: 28 Weeks Delivery Hospital: [facility] [place], she is currently admitted at [facility]. 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 Twin B the smaller twin on maternal right side with intermittent absent end-diastolic flow on the umbilical artery. 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 Other indications:Twin OB History 3 Para 1 Term 1 0 AB 1 Living 1 SAB 1 IAB 0 Ectopic 0 Multiple 0 Live Births 1 Counseling and/or coordination of care (face to face time in the office/outpatient setting or floor/unit time in the hospital) was greater than 60 minutes which is more than 50% of the total time of 80 minutes spent on the encounter. In addition, the following items were performed before, during, and after this visit: Synthesis of current imaging findings. Results for orders placed or performed in visit on 09/04/22 Echo Follow-Up Narrative [facility] [place], [place] [id number] [email or web address] Echocardiogram Report M-mode, complete 2D, complete spectral Doppler, and color Doppler PATIENT: Alaina Yoder STUDY DATE/TIME: Sep 04 2022 1:31PM HEIGHT: : 1990 WEIGHT: AGE: 32yr BSA/BMI: / GENDER: F BP: 117 / 62 LOCATION: [facility] REFERRING PHYSICIAN: Shun Clifford Jodi ORDERING PROVIDER: CHRIS Rosas READING PHYSICIAN: CHRIS Rosas SECURITY SYSTEMS SALES REPRESENTATIVE: Leigh Gonzales RDCS SUMMARY: Hillsdale-Di twin , 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 Larger twin. 1. Pulmonary valve was thick and dysplastic with an increased flow velocity of 1.77 m/s, suggestive of pulmonary stenosis. Antegrade flow through pulmonary valve with no pulmonary regurgitation seen by color flow Doppler. There was post stenotic dilation of the the main pulmonary artery, 10.7 mm. The pulmonary valve annulus was 5.89 mm. 2. The cardiac size was at upper limits of normal. 3. No atrioventricular valve regurgitation. 4. Normal left ventricular size and function. Right ventricular hypertrophy with normal function. No tricuspid regurgitation seen by color Doppler. 5. Normally related great arteries. 6. 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 There was anterograde flow seen on pulsed and color Doppler across the ductus arteriosus. 7. Normal systemic and pulmonary venous connections. 8. Small rim of pericardial fluid seen at the cardiac apex. 9. This study is limited in evaluating minor valve abnormalities, septal defects, partial anomalous pulmonary venous connection, and aortic arch abnormalities. 10. Prognosis of the cardiac findings discussed in detail with parents, father who is general surgeon. REASON FOR EXAM: Hillsdale-Di twins. STUDY AND PROCEDURE DATA: Procedure Description: Follow-Up ([id number]) . Study status: Routine. Location: lab. Procedure: Transabdominal echocardiography for congenital heart disease evaluation. Patient status: Inpatient. Blood pressure: 117/62 Maternal age: 32yr. : 3. Parity: 1. Expected delivery date: 11/23/2022. Gestational age: 28wk. Trimester: 3rd trimester. FINDINGS: DESCRIPTION Two fetuses are present. Abnormal three vessel view, main pulmonary artery 10.7 mm, aorta 7.2 mm and superior vena cava 3.6 mm. Fetus Twin A (Located on maternal left side in vertex position): The rhythm is sinus rhythm, with a heart rate of 154bpm. The position is vertex. Normal Doppler pattern of the ductus venosus, umbilical artery, and vein. Three vessel cord. ANATOMIC RELATIONSHIPS - Normal visceral situs, with left sided stomach. Left sided cardiac apex (levocardia).Normally related great vessels. VEINS AND ATRIA Atrial septum - There is a patent foramen ovale. There is a nlmym-cp-otvq shunt. Left atrium - The atrium is normal in size. Right atrium - The atrium is normal in size. Systemic veins - Inferior vena cava and superior vena cava seen entering normally into the right atrium. Pulmonary veins: There are at least 2 out of 4 pulmonary veins seen entering normally into the left atrium, with normal Doppler pattern. A-V CANAL Tricuspid valve - The valve is structurally normal. - There is no (more content not included)... Normal [facility] Progress Note {\rtf1\lbssbo64492\a nsi \cbhqkwh2280\ftnbj\uc1\ deff0 \X0A\{\fonttbl{\f0 \fnil \fcharset0 [place];}{\f1 \fnil SEGOE UI;}}\X0A\{\colortbl ;\rar180\obwzh129\blue2 55 ;\red79\green79\blue79 ;\red95\green95\blue95 ;\red0\green0\blue0 ;\red0\green0\blue0 ;}\X0A\{\stylesheet{\f0 \fs24 Normal;}{\cs1 Default Paragraph Font;}{\s2\snext0 heading 1;}{\s3\snext0 heading 2;}{\s4\snext0 heading 3;}{\s5\snext0 heading 4;}{\s6\snext0 heading 5;}{\s7\snext0 heading 6;}}\X0A\{\*\revtbl{Unk nown;}}\X0A\cilmtj1855 0\yjbftk99883\nfuem641\ ypmoz385\abaly245\margb 720\\footery7 20\nogrowautofit\deftab 720\formshade\dntblnsbd b\fet4\aendnotes\aftnnr lc\pgbrdrhead\pgbrdrfoo t \X0A\sectd\hqlehm10703 \wjtscb14565\guttersxn0 \yspexcul048\ 6\xpecybeg639\margbsxn7 20\vwsokgx076\lvitqzu23 0\sbkpage\pgncont\pgnde c \X0A\plain\plain\f0\fs 24\pard\ssparaaux0\s0\s l24\ltrpar\ql\keepn\david in\f0\fs24{\*\bkmkstart Progress Notes by Melly Elkins RN at 09/04/2022 11:00 AM}{\*\bkmkend Progress Notes by Melly Elkins RN at 09/04/2022 11:00 AM}\plain\f0\fs20\hich\ f0\dbch\f0\loch\f0\fs20 \v \X0A\bmk\par \X0A\trowd\trgaph0\las trow\trpaddl0\trpaddfl3 \trpaddr0\trpaddfr3\trl eft0\mxam090\ltrrow \X0A\clvertalb\clbrdrb \brdrs\\\ klhbs07432 \X0A\pard\intbl\sspara aux0\s0\sl24\ltrpar\ql\ keepn\plain\f0\fs24{\*\ bkmkstart Progress Notes by Melly Elkins RN at 09/04/2022 11:00 AM}{\*\bkmkend Progress Notes by Melly Elkins RN at 09/04/2022 11:00 AM}\plain\f0\fs20\hich\ f0\dbch\f0\loch\f0\cf2\ fs20\ltrch\b \X0A\Progress Notes by Melly Elkins RN at 09/04/2022 11:00 AM\plain\f0\fs20\hich\f 0\dbch\f0\loch\f0\fs20 \cell \X0A\intbl\row \X0A\pard\ssparaaux0\s 0\ql\plain\f0\fs24\plai n\f0\fs20\hich\f0\dbch\ f0\loch\f0\fs20\pard\se ct \X0A\sectd\dlhdwx05891 \ssokcq67743\guttersxn0 \soieudno457\bitpwjad81 6\uilpbevw885\margbsxn7 20\hlolrhv095\bokupce91 0\sbknone\pgncont\pgnde c \X0A\{\header \X0A\trowd\trgaph0\las trow\trpaddl0\trpaddfl3 \trpaddr0\trpaddfr3\trl eft0\zeoi553\ltrrow \X0A\clvertalb\clbrdrb \brdrs\\\ hkkvl77383 \X0A\pard\intbl\sspara aux0\s0\sl24\ltrpar\ql\ keepn\plain\f0\fs24\david in\f0\fs20\hich\f0\dbch \f0\loch\f0\cf2\fs20\lt rch\b Progress Notes by Melly Elkins RN at 09/04/2022 11:00 AM (continued)\plain\f0\fs 20\hich\f0\dbch\f0\loch \f0\fs20 \cell \X0A\intbl\row \X0A\plain\f0\fs24}\X0 A\trowd\trgaph0\trpadd l0\trpaddfl3\trpaddr0\t rpaddfr3\trleft0\trkeep \X0A\clvertalt\cellx21 6 \X0A\clvertalt\cellx37 44 \X0A\clvertalt\cellx72 72 \X0A\clvertalt\cellx10 800 \X0A\pard\intbl\sspara aux0\s0\sl24\ql\keepn\p irvin\f0\fs24\plain\f0\f s20\hich\f0\dbch\f0\loc h\f0\fs20\cell \X0A\pard\intbl\sspara aux0\s0\li80\ri80\sl24\ ql\keepn\plain\f0\fs24\ plain\f0\fs20\hich\f0\d bch\f0\loch\f0\cf3\fs20 Author: \plain\f0\fs20\hich\f0\ dbch\f0\loch\f0\cf4\fs2 0 Melly LeblancTrini Severo, RN\plain\f0\fs20\hich\f 0\dbch\f0\loch\f0\fs20\ cell \X0A\pard\intbl\sspara aux0\s0\li80\ri80\sl24\ ql\keepn\plain\f0\fs24\ plain\f0\fs20\hich\f0\d bch\f0\loch\f0\cf3\fs20 Service: \plain\f0\fs20\hich\f0\ dbch\f0\loch\f0\cf4\fs2 0 Nursing\plain\f0\fs20\h ich\f0\dbch\f0\loch\f0\ fs20\cell \X0A\pard\intbl\sspara aux0\s0\li80\ri80\sl24\ ql\keepn\plain\f0\fs24\ plain\f0\fs20\hich\f0\d bch\f0\loch\f0\cf3\fs20 Author Type: \plain\f0\fs20\hich\f0\ dbch\f0\loch\f0\cf4\fs2 0 Registered Nurse\plain\f0\fs20\hic h\f0\dbch\f0\loch\f0\fs 20\cell \X0A\intbl\row \X0A\pard\intbl\sspara aux0\s0\sl24\ql\keepn\p irvin\f0\fs24\plain\f0\f s20\hich\f0\dbch\f0\loc h\f0\fs20\cell \X0A\pard\intbl\sspara aux0\s0\li80\ri80\sl24\ ql\keepn\plain\f0\fs24\ plain\f0\fs20\hich\f0\d bch\f0\loch\f0\cf3\fs20 Filed: \plain\f0\fs20\hich\f0\ dbch\f0\loch\f0\cf4\fs2 0 09/04/2022 11:03 AM\plain\f0\fs20\hich\f 0\dbch\f0\loch\f0\fs20\ cell \X0A\pard\intbl\sspara aux0\s0\li80\ri80\sl24\ ql\keepn\plain\f0\fs24\ plain\f0\fs20\hich\f0\d bch\f0\loch\f0\cf3\fs20 Date of Service: \plain\f0\fs20\hich\f0\ dbch\f0\loch\f0\cf4\fs2 0 09/04/2022 11:00 AM\plain\f0\fs20\hich\f 0\dbch\f0\loch\f0\fs20\ cell \X0A\pard\intbl\sspara aux0\s0\li80\ri80\sl24\ ql\keepn\plain\f0\fs24\ plain\f0\fs20\hich\f0\d bch\f0\loch\f0\cf3\fs20 Status: \plain\f0\fs20\hich\f0\ dbch\f0\loch\f0\cf4\fs2 0 Signed\plain\f0\fs20\hi ch\f0\dbch\f0\loch\f0\f s20\cell \X0A\intbl\row \X0A\trowd\trgaph0\las trow\trpaddl0\trpaddfl3 \trpaddr0\trpaddfr3\trl eft0\trkeep \X0A\clvertalt\cellx21 6 \X0A\clvertalt\cellx10 800 \X0A\pard\intbl\sspara aux0\s0\sl24\ql\keepn\p irvin\f0\fs24\plain\f0\f s20\hich\f0\dbch\f0\loc h\f0\fs20\cell \X0A\pard\intbl\sspara aux0\s0\li80\ri80\sl24\ ql\keepn\plain\f0\fs24\ plain\f0\fs20\hich\f0\d bch\f0\loch\f0\cf3\fs20 [employer] Supervisor: \plain\f0\fs20\hich\f0\ dbch\f0\loch\f0\cf4\fs2 0 Melly Elkins RN (Registered Nurse)\plain\f0\fs20\hi ch\f0\dbch\f0\loch\f0\f s20\cell \X0A\intbl\row \X0A\trowd\trgaph0\las trow\trpaddl0\trpaddfl3 \trpaddr0\trpaddfr3\trl eft0 \X0A\clvertalt\cellx21 6 \X0A\clvertalt\cellx10 800 \X0A\pard\intbl\sspara aux0\s0\sl24\ql\plain\f 0\fs24\plain\f0\fs20\hi ch\f0\dbch\f0\loch\f0\f s20\cell \X0A\pard\intbl\sspara aux0\s0\li80\ri80\sl24\ ql\plain\f0\fs24\plain\ f0\fs20\hich\f0\dbch\f0 \loch\f0\fs20\c (more content not included)... Normal [place] [facility] Progress Note {\rtf1\vstbyi18020\a nsi \apaaaxf7646\ftnbj\uc1\ deff0 \X0A\{\fonttbl{\f0 \fnil \fcharset0 [place];}{\f1 \fnil [place];}{\f2 \fnil SEGOE UI;}{\f3 \fnil Symbol;}{\f4 \fnil \fcharset0 SEGOE UI;}{\f5 \fnil Wingdings;}}\X0A\{\colo rtbl ;\fwd174\\blue2 55 ;\red79\green79\blue79 ;\red95\green95\blue95 ;\red0\green0\blue0 ;\red0\vqtuu280\jxlu406 ;\viy866\\blue1 02 ;\red0\green0\blue0 ;\jnz812\pvpoe288\blue2 38 ;}\X0A\{\stylesheet{\f0 \fs24 Normal;}{\cs1 Default Paragraph Font;}{\s2\snext0 heading 1;}{\s3\snext0 heading 2;}{\s4\snext0 heading 3;}{\s5\snext0 heading 4;}{\s6\snext0 heading 5;}{\s7\snext0 heading 6;}}\X0A\{\*\revtbl{Unk nown;}}\X0A\{\*\listtab le \X0A\{\list\listtemplat elder-1 \X0A\{\listlevel\leveln fc0\levelfollow0\levels tartat1{\leveltext \'02\'00.}{\levelnumber s \'01}}\X0A\{\listlevel\ levelnfc4\levelfollow0\ levelstartat1{\leveltex t \'02\'01.}{\levelnumber s \'01}}\X0A\{\listlevel\ levelnfc2\levelfollow0\ levelstartat1{\leveltex t \'\02.}{\levelnumber s \'01}}\X0A\{\listlevel\ levelnfc0\levelfollow0\ levelstartat1{\leveltex t \'\03.}{\levelnumber s \'01}}\X0A\{\listlevel\ levelnfc4\levelfollow0\ levelstartat1{\leveltex t \'02\'04.}{\levelnumber s \'01}}\X0A\{\listlevel\ levelnfc2\levelfollow0\ levelstartat1{\leveltex t \'02\'05.}{\levelnumber s \'01}}\X0A\{\listlevel\ levelnfc0\levelfollow0\ levelstartat1{\leveltex t \'02\'06.}{\levelnumber s \'01}}\X0A\{\listlevel\ levelnfc4\levelfollow0\ levelstartat1{\leveltex t \'02\07.}{\levelnumber s \'01}}\X0A\{\listlevel\ levelnfc2\levelfollow0\ levelstartat1{\leveltex t \'02\'08.}{\levelnumber s \'01}}\X0A\{\listname ;}\listid1 \X0A\}\X0A\{\list\listt emplateid-1 \X0A\{\listlevel\leveln fc23\levelfollow0\level startat1{\leveltext \'\'b7}{\levelnumbers }\f3}\X0A\{\listlevel\l yipjhqa28\levelfollow0\ levelstartat1{\leveltex t \'\'b7}{\levelnumbers }\f3}\X0A\{\listlevel\l igdhcak73\levelfollow0\ levelstartat1{\leveltex t \'\'b7}{\levelnumbers }\f3}\X0A\{\listlevel\l qaepoxj40\levelfollow0\ levelstartat1{\leveltex t \'\'b7}{\levelnumbers }\f3}\X0A\{\listlevel\l jjsnuaa39\levelfollow0\ levelstartat1{\leveltex t \'\'b7}{\levelnumbers }\f3}\X0A\{\listlevel\l ymehyap18\levelfollow0\ levelstartat1{\leveltex t \'\'b7}{\levelnumbers }\f3}\X0A\{\listlevel\l anctoxk29\levelfollow0\ levelstartat1{\leveltex t \'\'b7}{\levelnumbers }\f3}\X0A\{\listlevel\l \levelfollow0\ levelstartat1{\leveltex t \'01\'b7}{\levelnumbers }\f3}\X0A\{\listlevel\l scxvxuu49\levelfollow0\ levelstartat1{\leveltex t \'\'b7}{\levelnumbers }\f3}\X0A\{\listname ;}\listid2 \X0A\}\X0A\}\X0A\{\*\li stoverridetable \X0A\{\listoverride\lis tid1\listoverridecount0 \ls1}\X0A\{\listoverrid e\listid2\listoverridec ount0\ls2}\X0A\}\X0A\p ojcot12750\eyfqfs33017\ \xcmet503\margt 720\exfxq634\nufopyp965 \hflefww753\nogrowautof it\mhzhun481\formshade\ dntblnsbdb\fet4\aendnot es\aftnnrlc\pgbrdrhead\ pgbrdrfoot \X0A\sectd\etjrvd88029 \sybujs27068\guttersxn0 \gbuqeekt939\ 6\jykafexp722\margbsxn7 20\ignskxy293\mtrliga03 0\sbkpage\pgncont\pgnde c \X0A\plain\plain\f0\fs 24\pard\ssparaaux0\s0\s l24\ltrpar\ql\keepn\david in\f0\fs24{\*\bkmkstart Progress Notes by Fernanda Delarosa, DO at 09/04/2022 5:07 AM}{\*\bkmkend Progress Notes by Fernanda Delarosa, DO at 09/04/2022 5:07 AM}\plain\f0\fs20\hich\ f0\dbch\f0\loch\f0\fs20 \v \X0A\bmk\par \X0A\trowd\trgaph0\las trow\trpaddl0\trpaddfl3 \trpaddr0\trpaddfr3\trl eft0\ygbt111\ltrrow \X0A\clvertalb\clbrdrb \brdrs\\\ ocjei24016 \X0A\pard\intbl\sspara aux0\s0\sl24\ltrpar\ql\ keepn\plain\f0\fs24{\*\ bkmkstart Progress Notes by Fernanda Delarosa, DO at 09/04/2022 5:07 AM}{\*\bkmkend Progress Notes by Fernanda Delarosa, DO at 09/04/2022 5:07 AM}\plain\f0\fs20\hich\ f0\dbch\f0\loch\f0\cf2\ fs20\ltrch\b \X0A\Progress Notes by Fernanda Delarosa, DO at 09/04/2022 5:07 AM\plain\f0\fs20\hich\f 0\dbch\f0\loch\f0\fs20 \cell \X0A\intbl\row \X0A\pard\ssparaaux0\s 0\ql\plain\f0\fs24\plai n\f0\fs20\hich\f0\dbch\ f0\loch\f0\fs20\pard\se ct \X0A\sectd\csquzp63310 \qbdnvy08339\guttersxn0 \agzjgtcr981\ishkzvez28 6\xixfleii557\margbsxn7 20\kpehsni136\jptqvol37 0\sbknone\pgncont\pgnde c \X0A\{\header \X0A\trowd\trgaph0\las trow\trpaddl0\trpaddfl3 \trpaddr0\trpaddfr3\trl eft0\xxkr553\ltrrow \X0A\clvertalb\clbrdrb \brdrs\\\ sktnt50487 \X0A\pard\intbl\sspara aux0\s0\sl24\ltrpar\ql\ keepn\plain\f0\fs24\david in\f0\fs20\hich\f0\dbch \f0\loch\f0\cf2\fs20\lt rch\b Progress Notes by Fernanda Delarosa, at 09/04/2022 5:07 AM (continued)\plain\f0\fs 20\hich\f0\dbch\f0\loch \f0\fs20 \cell \X0A\intbl\row \X0A\plain\f0\fs24}\X0 A\trowd\trgaph0\trpadd l0\trpaddfl3\trpaddr0\t rpaddfr3\trleft0\trkeep \X0A\clvertalt\cellx21 6 \X0A\clvertalt\cellx37 44 \X0A\clvertalt\cellx72 72 \X0A\clvertalt\cellx10 800 \X0A\pard\intbl\sspara aux0\s0\sl24\ql\keepn\p irvin\f0\fs24\plain\f0\f s20\hich\f0\dbch\f0\loc h\f0\fs20\cell \X0A\pard\intbl\sspara aux0\s0\li80\ri80\sl24\ ql\keepn\plain\f0\fs24\ plain\f0\fs20\hich\f0\d bch\f0\loch\f0\cf3\fs20 Author: \plain\f0\fs20\hich\f0\ dbch\f0\loch\f0\cf4\fs2 0 Fernanda Jackovic, DO\plain\f0\fs20\hich\f 0\dbch\f0\loch\f0\fs20\ cell \X0A\pard\i (more content not included)... Normal [facility] US Biophy w/o non- stresson 09-01-2022 [facility] US Biophy w/o non-stress Patient Name: ALAINA YODER Maternal Medicine ACCESSION EXAM DATE/TIME PROCEDURE ORDERING PROVIDER [id number] 09/01/2022 08:55 EDT [facility] US Biophy w/o LENA ALLISON non-stress Reason For Exam ([facility] US Biophy w/o non-stress) mono karlie FGR Report - OBSTETRICS REPORT (Signed Final 09/01/2022 01:30 pm) - PATIENT INFO: ID #: [id number] : [birth year] (32 yrs) Name: ALAINA YODER Visit Date: 09/01/2022 08:58 am - PERFORMED BY: Attending: Hany Marie MD, PhD, FACOG Performed By: Ander Elena Referred By: LENA ALLISON Location: Inpatient- Hospital Visit Type: Inpatient - Hospital - SERVICE(S) PROVIDED: BPP w/out NST 83915 BPP w/out NST 64146 US Doppler umbilical art 14799 US Doppler umbilical art 23614 US Doppler MCA 15409 - INDICATIONS: [place]/Di twins FGR B [facility] patient Cardiac Defects on both babies Intermittent AEDF on Baby B Intermittent Reversed on Baby B - VITAL SIGNS: Weight (lb): 158 Height: 5'8 BMI: 24.02 - EVALUATION (FETUS A): Num Of Fetuses: 2 Heart Rate(bpm): 157 Cardiac Activity: Regular rhythm Lie: Longitudinal Mat LT Presentation: Cephalic Maternal Medicine Report Placenta: Posterior Amniotic Fluid DEANNA FV: Within normal limits Largest Pocket(cm) 3.63 - BIOPHYSICAL EVALUATION (FETUS A): Amniotic F.V: Within normal limits F. Tone: Observed F. Movement: Observed Score: 06/12 F. Breathing: Observed - BIOMETRY (FETUS A): - GESTATIONAL AGE (FETUS A): Clinical DEWEY: 28w 1d DEWEY: 11/23/22 Best: 28w 1d Det. By: Clinical DEWEY DEWEY: 11/23/22 - DOPPLER - VESSELS (FETUS A): Umbilical Artery S/D %tile RI %tile PI %tile PSV (cm/s) 2.35 14 0.57 11 0.84 17 62.64 - EVALUATION (FETUS B): Num Of Fetuses: 2 Heart Rate(bpm): 150 Cardiac Activity: Regular rhythm Lie: MAT RT Presentation: Oblique Placenta: Posterior Amniotic Fluid DEANNA FV: Within normal limits Largest Pocket(cm) 3.65 - BIOMETRY (FETUS B): - GESTATIONAL AGE (FETUS B): Clinical DEWEY: 28w 1d DEWEY: 11/23/22 Best: 28w 1d Det. By: Clinical DEWEY DEWEY: 11/23/22 - DOPPLER - VESSELS (FETUS B): Umbilical Artery ADFV RDFV Yes Yes Middle Cerebral Artery S/D RI PI %tile PSV MoM (cm/s) 3 0.67 1.27 < 2.5 41.95 1.13 Maternal Medicine Report Ductus Venosus Normal Comment: The umbilical artery Doppler shows reveresed end diastolic flow intermittenly - IMPRESSION: 1. Monochorionic diamniotic twins. 2. Fetus A: Known AGA, normal fluid, AGA, normal dopplers, known cardiac anomlay, and BPP = 8/8 3. Fetus B: Known type 3 FGR, normal fluid, intermittent, AEDF, normal DV Dopplers, Known cardiac anomaly 4. Large inter twin discordance. - RECOMMENDATIONS: See inpatient notes. - Hany Marie MD, PhD, FACOG Electronically Signed Final Report 09/01/2022 01:30 pm - Final Dictated: 09/01/2022 8:58 am Dictating Physician: HANY MARIE Signed Date and Time: 09/01/2022 1:31 pm Signed by: HANY MARIE Ultrasound ACCESSION EXAM DATE/TIME PROCEDURE ORDERING PROVIDER [id number] 09/01/2022 08:55 EDT [facility] US Biophy w/o LENA ALLISON non-stress Reason For Exam ([facility] US Biophy w/o non-stress) mono di FGR Report - OBSTETRICS REPORT (Signed Final 09/01/2022 01:30 pm) - PATIENT INFO: ID #: [id number] : [birth year] (32 yrs) Name: ALAINA YODER V (more content not included)... [facility] US MDL Cerebral Ar lianet Echoon 09-01-2022 [facility] US MDL Cerebral Artery Echo Patient Name: ALAINA YODER Maternal Medicine ACCESSION EXAM DATE/TIME PROCEDURE ORDERING PROVIDER [id number] 09/01/2022 08:57 EDT M US Biophy w/o LENA ALLISON non-stress Reason For Exam ([facility] US Biophy w/o non-stress) [place] di fgr Report - OBSTETRICS REPORT (Signed Final 09/01/2022 01:30 pm) - PATIENT INFO: ID #: [id number] : [birth year] (32 yrs) Name: ALAINA YODER Visit Date: 09/01/2022 08:58 am - PERFORMED BY: Attending: Hany Marie MD, PhD, FACOG Performed By: Ander Elena Referred By: LENA ALLISON Location: Inpatient- Hospital Visit Type: Inpatient - Hospital - SERVICE(S) PROVIDED: BPP w/out NST 75469 BPP w/out NST 30067 US Doppler umbilical art 37355 US Doppler umbilical art 02378 US Doppler MCA 56040 - INDICATIONS: [place]/Di twins FGR B [facility] patient Cardiac Defects on both babies Intermittent AEDF on Baby B Intermittent Reversed on Baby B - VITAL SIGNS: Weight (lb): 158 Height: 5'8 BMI: 24.02 - EVALUATION (FETUS A): Num Of Fetuses: 2 Heart Rate(bpm): 157 Cardiac Activity: Regular rhythm Lie: Longitudinal Mat LT Presentation: Cephalic Maternal Medicine Report Placenta: Posterior Amniotic Fluid DEANNA FV: Within normal limits Largest Pocket(cm) 3.63 - BIOPHYSICAL EVALUATION (FETUS A): Amniotic F.V: Within normal limits F. Tone: Observed F. Movement: Observed Score: 88 F. Breathing: Observed - BIOMETRY (FETUS A): - GESTATIONAL AGE (FETUS A): Clinical DEWEY: 28w 1d DEWEY: 11/23/22 Best: 28w 1d Det. By: Clinical DEWEY DEWEY: 11/23/22 - DOPPLER - VESSELS (FETUS A): Umbilical Artery S/D %tile RI %tile PI %tile PSV (cm/s) 2.35 14 0.57 11 0.84 17 62.64 - EVALUATION (FETUS B): Num Of Fetuses: 2 Heart Rate(bpm): 150 Cardiac Activity: Regular rhythm Lie: MAT RT Presentation: Oblique Placenta: Posterior Amniotic Fluid DEANNA FV: Within normal limits Largest Pocket(cm) 3.65 - BIOMETRY (FETUS B): - GESTATIONAL AGE (FETUS B): Clinical DEWEY: 28w 1d DEWEY: 11/23/22 Best: 28w 1d Det. By: Clinical DEWEY DEWEY: 11/23/22 - DOPPLER - VESSELS (FETUS B): Umbilical Artery ADFV RDFV Yes Yes Middle Cerebral Artery S/D RI PI %tile PSV MoM (cm/s) 3 0.67 1.27 < 2.5 41.95 1.13 Maternal Medicine Report Ductus Venosus Normal Comment: The umbilical artery Doppler shows reveresed end diastolic flow intermittenly - IMPRESSION: 1. Monochorionic diamniotic twins. 2. Fetus A: Known AGA, normal fluid, AGA, normal dopplers, known cardiac anomlay, and BPP = 8/8 3. Fetus B: Known type 3 FGR, normal fluid, intermittent, AEDF, normal DV Dopplers, Known cardiac anomaly 4. Large inter twin discordance. - RECOMMENDATIONS: See inpatient notes. - Hany Marie MD, PhD, FACOG Electronically Signed Final Report 09/01/2022 01:30 pm - Final Dictated: 09/01/2022 8:58 am Dictating Physician: HANY MARIE Signed Date and Time: 09/01/2022 1:31 pm Signed by: HANY MARIE Ultrasound ACCESSION EXAM DATE/TIME PROCEDURE ORDERING PROVIDER [id number] 09/01/2022 08:57 EDT [facility] US Biophy w/o LENA ALLISON non-stress Reason For Exam ([facility] US Biophy w/o non-stress) [place] di fgr Report - OBSTETRICS REPORT (Signed Final 09/01/2022 01:30 pm) - PATIENT INFO: ID #: [id number] : [birth year] (32 yrs) Name: ALAINA YODER V (more content not included)... [facility] US MDL Cerebral Artery Echo Patient Name: ALAINA YODER Maternal Medicine ACCESSION EXAM DATE/TIME PROCEDURE ORDERING PROVIDER [id number] 09/01/2022 08:55 EDT M US Biophy w/o LENA ALLISON non-stress Reason For Exam (M US Biophy w/o non-stress) [place] di fgr Report - OBSTETRICS REPORT (Signed Final 09/01/2022 01:30 pm) - PATIENT INFO: ID #: [id number] : [birth year] (32 yrs) Name: ALAINA YODER Visit Date: 09/01/2022 08:58 am - PERFORMED BY: Attending: Hany Marie MD, PhD, FACOG Performed By: Ander Elena Referred By: LENA ALLISON Location: Inpatient- Hospital Visit Type: Inpatient - Hospital - SERVICE(S) PROVIDED: BPP w/out NST 88170 BPP w/out NST 73619 US Doppler umbilical art 65818 US Doppler umbilical art 39281 US Doppler MCA 74860 - INDICATIONS: [place]/Di twins FGR B [place] [facility] patient Cardiac Defects on both babies Intermittent AEDF on Baby B Intermittent Reversed on Baby B - VITAL SIGNS: Weight (lb): 158 Height: 5'8 BMI: 24.02 - EVALUATION (FETUS A): Num Of Fetuses: 2 Heart Rate(bpm): 157 Cardiac Activity: Regular rhythm Lie: Longitudinal Mat LT Presentation: Cephalic Maternal Medicine Report Placenta: Posterior Amniotic Fluid DEANNA FV: Within normal limits Largest Pocket(cm) 3.63 - BIOPHYSICAL EVALUATION (FETUS A): Amniotic F.V: Within normal limits F. Tone: Observed F. Movement: Observed Score: 06/12 F. Breathing: Observed - BIOMETRY (FETUS A): - GESTATIONAL AGE (FETUS A): Clinical DEWEY: 28w 1d DEWEY: 11/23/22 Best: 28w 1d Det. By: Clinical DEWEY DEWEY: 11/23/22 - DOPPLER - VESSELS (FETUS A): Umbilical Artery S/D %tile RI %tile PI %tile PSV (cm/s) 2.35 14 0.57 11 0.84 17 62.64 - EVALUATION (FETUS B): Num Of Fetuses: 2 Heart Rate(bpm): 150 Cardiac Activity: Regular rhythm Lie: MAT RT Presentation: Oblique Placenta: Posterior Amniotic Fluid DEANNA FV: Within normal limits Largest Pocket(cm) 3.65 - BIOMETRY (FETUS B): - GESTATIONAL AGE (FETUS B): Clinical DEWEY: 28w 1d DEWEY: 11/23/22 Best: 28w 1d Det. By: Clinical DEWEY DEWEY: 11/23/22 - DOPPLER - VESSELS (FETUS B): Umbilical Artery ADFV RDFV Yes Yes Middle Cerebral Artery S/D RI PI %tile PSV MoM (cm/s) 3 0.67 1.27 < 2.5 41.95 1.13 Maternal Medicine Report Ductus Venosus Normal Comment: The umbilical artery Doppler shows reveresed end diastolic flow intermittenly - IMPRESSION: 1. Monochorionic diamniotic twins. 2. Fetus A: Known AGA, normal fluid, AGA, normal dopplers, known cardiac anomlay, and BPP = 8/8 3. Fetus B: Known type 3 FGR, normal fluid, intermittent, AEDF, normal DV Dopplers, Known cardiac anomaly 4. Large inter twin discordance. - RECOMMENDATIONS: See inpatient notes. - Hany Marie MD, PhD, FACOG Electronically Signed Final Report 09/01/2022 01:30 pm - Final Dictated: 09/01/2022 8:58 am Dictating Physician: HANY MARIE Signed Date and Time: 09/01/2022 1:31 pm Signed by: HANY MARIE Ultrasound ACCESSION EXAM DATE/TIME PROCEDURE ORDERING PROVIDER [id number] 09/01/2022 08:55 EDT [facility] US Biophy w/o LENA ALLISON non-stress Reason For Exam ([facility] US Biophy w/o non-stress) [place] di fgr Report - OBSTETRICS REPORT (Signed Final 09/01/2022 01:30 pm) - PATIENT INFO: ID #: [id number] : [birth year] (32 yrs) Name: ALAINA AIDEN Andrade (more content not included)... [facility] US Umbilical Artery Echo on 09-01-2022 [facility] US Umbilical Artery Echo Patient Name: ALAINA YODER Maternal Medicine ACCESSION EXAM DATE/TIME PROCEDURE ORDERING PROVIDER [id number] 09/01/2022 08:55 EDT [facility] US Biophy w/o LENA ALLISON non-stress Reason For Exam ([facility] US Biophy w/o non-stress) [place] akrlie fgr Report - OBSTETRICS REPORT (Signed Final 09/01/2022 01:30 pm) - PATIENT INFO: ID #: [id number] : [birth year] (32 yrs) Name: ALAINA YODER Visit Date: 09/01/2022 08:58 am - PERFORMED BY: Attending: Hany Marie MD, PhD, FACOG Performed By: Ander Elena Referred By: LENA ALLISON Location: Inpatient- Hospital Visit Type: Inpatient - Hospital - SERVICE(S) PROVIDED: BPP w/out NST 20302 BPP w/out NST 01598 US Doppler umbilical art 50096 US Doppler umbilical art 75645 US Doppler MCA 55429 - INDICATIONS: [place]/Di twins FGR B [facility] patient Cardiac Defects on both babies Intermittent AEDF on Baby B Intermittent Reversed on Baby B - VITAL SIGNS: Weight (lb): 158 Height: 5'8 BMI: 24.02 - EVALUATION (FETUS A): Num Of Fetuses: 2 Heart Rate(bpm): 157 Cardiac Activity: Regular rhythm Lie: Longitudinal Mat LT Presentation: Cephalic Maternal Medicine Report Placenta: Posterior Amniotic Fluid DEANNA FV: Within normal limits Largest Pocket(cm) 3.63 - BIOPHYSICAL EVALUATION (FETUS A): Amniotic F.V: Within normal limits F. Tone: Observed F. Movement: Observed Score: 06/12 F. Breathing: Observed - BIOMETRY (FETUS A): - GESTATIONAL AGE (FETUS A): Clinical DEWEY: 28w 1d DEWEY: 11/23/22 Best: 28w 1d Det. By: Clinical DEWEY DEWEY: 11/23/22 - DOPPLER - VESSELS (FETUS A): Umbilical Artery S/D %tile RI %tile PI %tile PSV (cm/s) 2.35 14 0.57 11 0.84 17 62.64 - EVALUATION (FETUS B): Num Of Fetuses: 2 Heart Rate(bpm): 150 Cardiac Activity: Regular rhythm Lie: MAT RT Presentation: Oblique Placenta: Posterior Amniotic Fluid DEANNA FV: Within normal limits Largest Pocket(cm) 3.65 - BIOMETRY (FETUS B): - GESTATIONAL AGE (FETUS B): Clinical DEWEY: 28w 1d DEWEY: 11/23/22 Best: 28w 1d Det. By: Clinical DEWEY DEWEY: 11/23/22 - DOPPLER - VESSELS (FETUS B): Umbilical Artery ADFV RDFV Yes Yes Middle Cerebral Artery S/D RI PI %tile PSV MoM (cm/s) 3 0.67 1.27 < 2.5 41.95 1.13 Maternal Medicine Report Ductus Venosus Normal Comment: The umbilical artery Doppler shows reveresed end diastolic flow intermittenly - IMPRESSION: 1. Monochorionic diamniotic twins. 2. Fetus A: Known AGA, normal fluid, AGA, normal dopplers, known cardiac anomlay, and BPP = 8/8 3. Fetus B: Known type 3 FGR, normal fluid, intermittent, AEDF, normal DV Dopplers, Known cardiac anomaly 4. Large inter twin discordance. - RECOMMENDATIONS: See inpatient notes. - Hany Marie MD, PhD, FACOG Electronically Signed Final Report 09/01/2022 01:30 pm - Final Dictated: 09/01/2022 8:58 am Dictating Physician: HANY MARIE Signed Date and Time: 09/01/2022 1:31 pm Signed by: HANY MARIE Ultrasound ACCESSION EXAM DATE/TIME PROCEDURE ORDERING PROVIDER [id number] 09/01/2022 08:55 EDT [facility] US Biophy w/o LENA ALLISON non-stress Reason For Exam ([facility] US Biophy w/o non-stress) [place] karlie fgr Report - OBSTETRICS REPORT (Signed Final 09/01/2022 01:30 pm) - PATIENT INFO: ID #: [id number] : [birth year] (32 yrs) Name: ALAINA YODER Lupe (more content not included)... [facility] US Biophy w/o non- stresson 08-31-2022 [facility] US Biophy w/o non-stress Patient Name: ALAINA YODER Maternal Medicine ACCESSION EXAM DATE/TIME PROCEDURE ORDERING PROVIDER [id number] 08/31/2022 08:44 EDT [facility] US Biophy w/o LENA ALLISON non-stress Reason For Exam ([facility] US Biophy w/o non-stress) [place]/Di Report - OBSTETRICS REPORT (Signed Final 08/31/2022 11:12 am) - PATIENT INFO: ID #: [id number] : [birth year] (32 yrs) Name: ALAINA YODER Visit Date: 08/31/2022 08:50 am - PERFORMED BY: Attending: Ty Hoffmann MD Performed By: Lindy Du RDMS Referred By: LENA ALLISON Location: Inpatient- Hospital Visit Type: Inpatient - Hospital - SERVICE(S) PROVIDED: BPP w/out NST 78946 BPP w/out NST 37707 US Doppler umbilical art 88712 US Doppler umbilical art 23790 - INDICATIONS: [place]/Di twins FGR B [facility] patient Cardiac Defects on both babies Intermittent AEDF on Baby B Intermittent Reversed on Baby B - VITAL SIGNS: Height: 5'8 - EVALUATION (FETUS A): Num Of Fetuses: 2 Heart Rate(bpm): 138 Cardiac Activity: Regular rhythm Lie: Longitudinal Maternal LT Presentation: Cephalic Placenta: Posterior Membrane Desc: Monochorionic - diamniotic Membrane Size: Normal Maternal Medicine Report Amniotic Fluid DEANNA FV: Within normal limits Largest Pocket(cm) 3.1 - BIOPHYSICAL EVALUATION (FETUS A): Amniotic F.V: Within normal limits F. Tone: Observed F. Movement: Observed Score: 06/12 F. Breathing: Observed - BIOMETRY (FETUS A): - GESTATIONAL AGE (FETUS A): Clinical DEWEY: 28w 0d DEWEY: 11/23/22 Best: 28w 0d Det. By: Clinical DEWEY DEWEY: 11/23/22 - ANATOMY (FETUS A): Thoracic: Normal appearance Diaphragm: Normal appearance Stomach: Normal appearance Abdominal Wall: Normal appearance Bladder: Normal appearance - DOPPLER - VESSELS (FETUS A): Umbilical Artery S/D %tile RI %tile PSV (cm/s) 2.51 21 0.6 21 58.22 - EVALUATION (FETUS B): Num Of Fetuses: 2 Heart Rate(bpm): 148 Cardiac Activity: Regular rhythm Lie: Oblique Maternal RT Presentation: Cephalic Placenta: Posterior Amniotic Fluid DEANNA FV: Within normal limits Largest Pocket(cm) 4.3 - BIOPHYSICAL EVALUATION (FETUS B): Amniotic F.V: Within normal limits F. Tone: Observed F. Movement: Observed Score: 8/8 F. Breathing: Observed - BIOMETRY (FETUS B): - GESTATIONAL AGE (FETUS B): Maternal Medicine Report Clinical DEWEY: 28w 0d DEWEY: 11/23/22 Best: 28w 0d Det. By: Clinical DEWEY DEWEY: 11/23/22 - ANATOMY (FETUS B): Thoracic: Normal appearance Diaphragm: Normal appearance Stomach: Normal appearance Abdominal Wall: Normal appearance Bladder: Normal appearance - DOPPLER - VESSELS (FETUS B): Umbilical Artery S/D %tile RI %tile PI %tile PSV (cm/s) 6.77 > 97.5 0.85 > 97.5 1.56 > 97.5 39.85 Middle Cerebral Artery PSV MoM (cm/s) 46.34 1.25 Comment: The umbilical artery Doppler S/D is mildly elevated (>95th percentile) for this gestational age. The umbilical artery Doppler shows absent end diastolic flow and intermittent reveresed end diastolic flow. MCA Doppler velocities obtained are WNL. - IMPRESSION: - Monochorionic, diamnoiotic twin live intrauterine at 28w 0d. 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 Twin A is with normal UAD and prevoiusly normally grown, Twin B with with elevated to intermittent absent to reverse flow today. The DV is normal and the (more content not included)... Normal [facility] US Biophy w/o non-stress Patient Name: ALAINA YODER Maternal Medicine ACCESSION EXAM DATE/TIME PROCEDURE ORDERING PROVIDER [id number] 08/31/2022 08:44 EDT [facility] US Biophy w/o LENA ALLISON non-stress Reason For Exam ([facility] US Biophy w/o non-stress) UAD, previously seen persistent absent EDF in baby B with FGR Report - OBSTETRICS REPORT (Signed Final 08/31/2022 11:12 am) - PATIENT INFO: ID #: [id number] : [birth year] (32 yrs) Name: ALAINA YODER Visit Date: 08/31/2022 08:50 am - PERFORMED BY: Attending: Ty Hoffmann MD Performed By: Lindy Du RDMS Referred By: LENA ALLISON Location: Inpatient- Hospital Visit Type: Inpatient - Hospital - SERVICE(S) PROVIDED: BPP w/out NST 44850 BPP w/out NST 67353 US Doppler umbilical art 06007 US Doppler umbilical art 54853 - INDICATIONS: [place]/Di twins FGR B [facility] patient Cardiac Defects on both babies Intermittent AEDF on Baby B Intermittent Reversed on Baby B - VITAL SIGNS: Height: 5'8 - EVALUATION (FETUS A): Num Of Fetuses: 2 Heart Rate(bpm): 138 Cardiac Activity: Regular rhythm Lie: Longitudinal Maternal LT Presentation: Cephalic Placenta: Posterior Membrane Desc: Monochorionic - diamniotic Maternal Medicine Report Membrane Size: Normal Amniotic Fluid DEANNA FV: Within normal limits Largest Pocket(cm) 3.1 - BIOPHYSICAL EVALUATION (FETUS A): Amniotic F.V: Within normal limits F. Tone: Observed F. Movement: Observed Score: 88 F. Breathing: Observed - BIOMETRY (FETUS A): - GESTATIONAL AGE (FETUS A): Clinical DEWEY: 28w 0d DEWEY: 11/23/22 Best: 28w 0d Det. By: Clinical DEWEY DEWEY: 11/23/22 - ANATOMY (FETUS A): Thoracic: Normal appearance Diaphragm: Normal appearance Stomach: Normal appearance Abdominal Wall: Normal appearance Bladder: Normal appearance - DOPPLER - VESSELS (FETUS A): Umbilical Artery S/D %tile RI %tile PSV (cm/s) 2.51 21 0.6 21 58.22 - EVALUATION (FETUS B): Num Of Fetuses: 2 Heart Rate(bpm): 148 Cardiac Activity: Regular rhythm Lie: Oblique Maternal RT Presentation: Cephalic Placenta: Posterior Amniotic Fluid DEANNA FV: Within normal limits Largest Pocket(cm) 4.3 - BIOPHYSICAL EVALUATION (FETUS B): Amniotic F.V: Within normal limits F. Tone: Observed F. Movement: Observed Score: 8/8 F. Breathing: Observed - BIOMETRY (FETUS B): - GESTATIONAL AGE (FETUS B): Maternal Medicine Report Clinical DEWEY: 28w 0d DEWEY: 11/23/22 Best: 28w 0d Det. By: Clinical DEWEY DEWEY: 11/23/22 - ANATOMY (FETUS B): Thoracic: Normal appearance Diaphragm: Normal appearance Stomach: Normal appearance Abdominal Wall: Normal appearance Bladder: Normal appearance - DOPPLER - VESSELS (FETUS B): Umbilical Artery S/D %tile RI %tile PI %tile PSV (cm/s) 6.77 > 97.5 0.85 > 97.5 1.56 > 97.5 39.85 Middle Cerebral Artery PSV MoM (cm/s) 46.34 1.25 Comment: The umbilical artery Doppler S/D is mildly elevated (>95th percentile) for this gestational age. The umbilical artery Doppler shows absent end diastolic flow and intermittent reveresed end diastolic flow. MCA Doppler velocities obtained are WNL. - IMPRESSION: - Monochorionic, diamnoiotic twin live intrauterine at 28w 0d. 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 Twin A is with normal UAD and prevoiusly normally grown, Twin B with with elevated to intermittent (more content not included)... Normal [facility] US Umbilical Artery Echo on 08-31-2022 [facility] US Umbilical Artery Echo Patient Name: ALAINA YODER Maternal Medicine ACCESSION EXAM DATE/TIME PROCEDURE ORDERING PROVIDER [id number] 08/31/2022 08:44 EDT [facility] US Biophy w/o LENA ALLISON non-stress Reason For Exam ([facility] US Biophy w/o non-stress) UAD, previously seen persistent absent EDF in baby B with FGR Report - OBSTETRICS REPORT (Signed Final 08/31/2022 11:12 am) - PATIENT INFO: ID #: [id number] : [birth year] (32 yrs) Name: ALAINA YODER Visit Date: 08/31/2022 08:50 am - PERFORMED BY: Attending: Ty Hoffmann MD Performed By: Lindy Du RDMS Referred By: LENA ALLISON Location: Inpatient- Hospital Visit Type: Inpatient - Hospital - SERVICE(S) PROVIDED: BPP w/out NST 03778 BPP w/out NST 95244 US Doppler umbilical art 37937 US Doppler umbilical art 99248 - INDICATIONS: [place]/Di twins FGR B [facility] patient Cardiac Defects on both babies Intermittent AEDF on Baby B Intermittent Reversed on Baby B - VITAL SIGNS: Height: 5'8 - EVALUATION (FETUS A): Num Of Fetuses: 2 Heart Rate(bpm): 138 Cardiac Activity: Regular rhythm Lie: Longitudinal Maternal LT Presentation: Cephalic Placenta: Posterior Membrane Desc: Monochorionic - diamniotic Maternal Medicine Report Membrane Size: Normal Amniotic Fluid DEANNA FV: Within normal limits Largest Pocket(cm) 3.1 - BIOPHYSICAL EVALUATION (FETUS A): Amniotic F.V: Within normal limits F. Tone: Observed F. Movement: Observed Score: 06/12 F. Breathing: Observed - BIOMETRY (FETUS A): - GESTATIONAL AGE (FETUS A): Clinical DEWEY: 28w 0d DEWEY: 11/23/22 Best: 28w 0d Det. By: Clinical DEWEY DEEWY: 11/23/22 - ANATOMY (FETUS A): Thoracic: Normal appearance Diaphragm: Normal appearance Stomach: Normal appearance Abdominal Wall: Normal appearance Bladder: Normal appearance - DOPPLER - VESSELS (FETUS A): Umbilical Artery S/D %tile RI %tile PSV (cm/s) 2.51 21 0.6 21 58.22 - EVALUATION (FETUS B): Num Of Fetuses: 2 Heart Rate(bpm): 148 Cardiac Activity: Regular rhythm Lie: Oblique Maternal RT Presentation: Cephalic Placenta: Posterior Amniotic Fluid DEANNA FV: Within normal limits Largest Pocket(cm) 4.3 - BIOPHYSICAL EVALUATION (FETUS B): Amniotic F.V: Within normal limits F. Tone: Observed F. Movement: Observed Score: 8/8 F. Breathing: Observed - BIOMETRY (FETUS B): - GESTATIONAL AGE (FETUS B): Maternal Medicine Report Clinical DEWEY: 28w 0d DEWEY: 11/23/22 Best: 28w 0d Det. By: Clinical DEWEY DEWEY: 11/23/22 - ANATOMY (FETUS B): Thoracic: Normal appearance Diaphragm: Normal appearance Stomach: Normal appearance Abdominal Wall: Normal appearance Bladder: Normal appearance - DOPPLER - VESSELS (FETUS B): Umbilical Artery S/D %tile RI %tile PI %tile PSV (cm/s) 6.77 > 97.5 0.85 > 97.5 1.56 > 97.5 39.85 Middle Cerebral Artery PSV MoM (cm/s) 46.34 1.25 Comment: The umbilical artery Doppler S/D is mildly elevated (>95th percentile) for this gestational age. The umbilical artery Doppler shows absent end diastolic flow and intermittent reveresed end diastolic flow. MCA Doppler velocities obtained are WNL. - IMPRESSION: - Monochorionic, diamnoiotic twin live intrauterine at 28w 0d. 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 Twin A is with normal UAD and prevoiusly normally grown, Twin B with with elevated to intermittent (more content not included)... [facility] 08-30-2022 TS GEL ABO Group: O Rh, Gel: POS Antibody Screen Gel: NEG Normal [facility] Comment on above: Performed By: #### T SGL #### [employer] Glucose,Bedsideon 08-29-2022 Glucose [Mass/Vol] 74 mg/dL Normal 70-[address] [facility] Comment on above: Result Comment: Test performed by glucose meter. Results may be 10%-15% lower than serum/plasma values. (CLIA ID [id number]) Performed By: #### B GLU #### [facility] [address] [place] [address] Glucose,Bedsideon 08-28-2022 Glucose [Mass/Vol] 102 mg/dL High 70-100 [facility] Comment on above: Result Comment: Test performed by glucose meter. Results may be 10%-15% lower than serum/plasma values. (CLIA ID [id number]) Performed By: #### B GLU #### [facility] [address] [place] [address] Glucose [Mass/Vol] 118 mg/dL High 70-100 [facility] Comment on above: Result Comment: Test performed by glucose meter. Results may be 10%-15% lower than serum/plasma values. (CLIA ID [id number]) Performed By: #### C RTUR, TPUR #### [facility] [place] [address] [place] [address] Glucose [Mass/Vol] 89 mg/dL Normal 70-100 [facility] Comment on above: Result Comment: Test performed by glucose meter. Results may be 10%-15% lower than serum/plasma values. (CLIA ID [id number]) Performed By: #### C RTUR, TPUR #### [facility] [address] [place] [address] Glucose [Mass/Vol] 80 mg/dL Normal 70-100 [facility] Comment on above: Result Comment: Test performed by glucose meter. Results may be 10%-15% lower than serum/plasma values. (CLIA ID [id number]) Performed By: #### C RTUR, TPUR #### [facility] [place] [address] [place] [address] M US Biophy w/o non- stresson 08-28-2022 [facility] US Biophy w/o non-stress Patient Name: ALAINA YODER Maternal Medicine ACCESSION EXAM DATE/TIME PROCEDURE ORDERING PROVIDER [id number] 08/28/2022 09:33 EDT [facility] US Biophy w/o [id number] -LILIA ESPINOSA non-stress Reason For Exam ([facility] US Biophy w/o non-stress) [place]/di Addendum - OBSTETRICS REPORT (Corrected Final 08/31/2022 11:09 am) - PATIENT INFO: ID #: [id number] : [birth year] (32 yrs) Name: ALAINA YODER Visit Date: 08/28/2022 09:35 am - PERFORMED BY: Attending: Ty Hoffmann MD Performed By: Lindy Du RDWV Referred By: JESÚS Barlow. Address: [address] [place] [address], [address] Location: Inpatient- Hospital Visit Type: Inpatient - Hospital - SERVICE(S) PROVIDED: BPP w/out NST 28865 BPP w/out NST 36222 US Doppler umbilical art 30152 US [place] 106[address] [place] [address] [place] [address] - INDICATIONS: [place] Di Twins FGR B [facility] patient Cardiac Defects on both babies Intermittent AEDF on Baby B - VITAL SIGNS: Height: 5'8 - EVALUATION (FETUS A): Num Of Fetuses: 2 Heart Rate(bpm): 147 Cardiac Activity: Regular rhythm Lie: Longitudinal Maternal LT Presentation: Cephalic Placenta: Anterior Maternal Medicine Addendum Membrane Desc: Monochorionic - diamniotic Membrane Size: Normal Amniotic Fluid DEANNA FV: Within normal limits Largest Pocket(cm) 3.5 - BIOPHYSICAL EVALUATION (FETUS A): Amniotic F.V: Within normal limits F. Tone: Observed F. Movement: Observed Score: 8/8 F. Breathing: Observed - BIOMETRY (FETUS A): BPD: 75.1 mm G.Age: 30w 1d 97 % OFD: 95.5 mm HC: 272 mm G.Age: 29w 5d 84 % AC: 239.5 mm G.Age: 28w 2d 63 % FL: 51.1 mm G.Age: 27w 3d 29 % LV: 3.86 mm CI: 78.6 % 70 - 86 FL/HC: 18.8 % 18.8 - 20.6 HC/AC: 1.14 1.05 - 1.21 FL/BPD: 68.0 % 71 - 87 FL/AC: 21.3 % 20 - 24 Est. FW: 1190 gm 2 lb 10 oz 59 % FW Discordancy: 0 \ 36 % - GESTATIONAL AGE (FETUS A): Clinical DEWEY: 27w 4d DEWEY: 11/23/22 U/S Today: 28w 6d DEWEY: 11/14/22 Best: 27w 4d Det. By: Clinical DEWEY DEWEY: 11/23/22 - ANATOMY (FETUS A): Cranium: Normal appearance Ventricles: Normal appearance Choroid Plexus: Normal appearance Thoracic: Normal appearance Heart: Known cardiac defect RVOT: Abnormal LVOT: Normal appearance Diaphragm: Normal appearance Stomach: Normal appearance Abdomen: Normal appearance Abdominal Wall: Normal appearance Cord Vessels: 3-Vessel Cord Kidneys: Normal appearance Bladder: Normal appearance Upper Extremities: Present Lower Extremities: Present Other: Known pulmonary valve hypoplasia - DOPPLER - VESSELS (FETUS A): Umbilical Artery S/D %tile RI %tile PSV Maternal Medicine Addendum (cm/s) 2.47 17 0.59 16 54.74 Comment: The umbilical artery Doppler S/D is within normal limits for this gestational age. - EVALUATION (FETUS B): Num Of Fetuses: 2 Heart Rate(bpm): 141 Cardiac Activity: Regular rhythm Lie: Maternal RT Transverse, head right Presentation: spine up, head right Placenta: Posterior Membrane Desc: Monochorionic - diamniotic Amniotic Fluid DEANNA FV: Within normal limits Largest Pocket(cm) 3.7 - BIOPHYSICAL EVALUATION (FETUS B): Amniotic F.V: Within normal limits F. Tone: Observed F. Movement: Observed Score: 8/8 F. Breathing: Observed - BIOMETRY (FETUS B): BPD: 67.7 mm G.Age: 27w 2d 28 % OFD: 90 mm HC: 252 mm G.Age: 27w 3d 16 % AC: 202.5 mm G.Age: 24w 6d < 1 % FL: 44 mm G.Age: 24w 3d < 1 % HUM: 41.6 mm G.Age: 25w 1d < 5 % LV: 5.14 mm TC: 16.54 mm < 2.5 % ULN: 40.5 mm G.Age: 26w 3d 9 % TIB: 39.4 mm G.Age: 25w 0d < 5 % RAD: 34 mm G.Age: 24w 0d 12 % FIB: 39.3 mm G.Age: 24w 5d 31 % CI: 75.2 % 70 - 86 FL/HC: 17.5 % 18.8 - 20.6 HC/AC: 1.24 1.05 - 1.21 FL/BPD: 65.0 % 71 - 87 FL/AC: 21.7 % - Est. FW: 767 gm 1 lb 11 oz 19 % FW D (more content not included)... Normal [facility] US Follow Upon 08-28-2022 [facility] US Follow Up Patient Name: ALAINA YODER Maternal Medicine ACCESSION EXAM DATE/TIME PROCEDURE ORDERING PROVIDER [id number] 08/28/2022 09:33 EDT [facility] US Biophy w/o [id number] -LILIA ESPINOSA non-stress Reason For Exam ([facility] US Biophy w/o non-stress) Growth, Previable PPROM Addendum - OBSTETRICS REPORT (Corrected Final 08/31/2022 11:09 am) - PATIENT INFO: ID #: [id number] : [birth year] (32 yrs) Name: ALAINA YODER Visit Date: 08/28/2022 09:35 am - PERFORMED BY: Attending: Ty Hoffmann MD Performed By: Lindy Du RDMS Referred By: JESÚS RODRIGUES DO Ref. Address: [address] [place] [address], [address] Location: Inpatient- Hospital Visit Type: Inpatient - Hospital - SERVICE(S) PROVIDED: BPP w/out NST 32831 BPP w/out NST 36606 US Doppler umbilical art 35852 US Doppler umbilical art 57678 [place] [address] [place] [address] - INDICATIONS: [place] Di Twins FGR B [facility] patient Cardiac Defects on both babies Intermittent AEDF on Baby B - VITAL SIGNS: Height: 5'8 - EVALUATION (FETUS A): Num Of Fetuses: 2 Heart Rate(bpm): 147 Cardiac Activity: Regular rhythm Lie: Longitudinal Maternal LT Presentation: Cephalic Placenta: Anterior Maternal Medicine Addendum Membrane Desc: Monochorionic - diamniotic Membrane Size: Normal Amniotic Fluid DEANNA FV: Within normal limits Largest Pocket(cm) 3.5 - BIOPHYSICAL EVALUATION (FETUS A): Amniotic F.V: Within normal limits F. Tone: Observed F. Movement: Observed Score: 06/12 F. Breathing: Observed - BIOMETRY (FETUS A): BPD: 75.1 mm G.Age: 30w 1d 97 % OFD: 95.5 mm HC: 272 mm G.Age: 29w 5d 84 % AC: 239.5 mm G.Age: 28w 2d 63 % FL: 51.1 mm G.Age: 27w 3d 29 % LV: 3.86 mm CI: 78.6 % 70 - 86 FL/HC: 18.8 % 18.8 - 20.6 HC/AC: 1.14 1.05 - 1.21 FL/BPD: 68.0 % 71 - 87 FL/AC: 21.3 % 20 - 24 Est. FW: 1190 gm 2 lb 10 oz 59 % FW Discordancy: 0 \ 36 % - GESTATIONAL AGE (FETUS A): Clinical DEWEY: 27w 4d DEWEY: 11/23/22 U/S Today: 28w 6d DEWEY: 11/14/22 Best: 27w 4d Det. By: Clinical DEWEY DEWEY: 11/23/22 - ANATOMY (FETUS A): Cranium: Normal appearance Ventricles: Normal appearance Choroid Plexus: Normal appearance Thoracic: Normal appearance Heart: Known cardiac defect RVOT: Abnormal LVOT: Normal appearance Diaphragm: Normal appearance Stomach: Normal appearance Abdomen: Normal appearance Abdominal Wall: Normal appearance Cord Vessels: 3-Vessel Cord Kidneys: Normal appearance Bladder: Normal appearance Upper Extremities: Present Lower Extremities: Present Other: Known pulmonary valve hypoplasia - DOPPLER - VESSELS (FETUS A): Umbilical Artery S/D %tile RI %tile PSV Maternal Medicine Addendum (cm/s) 2.47 17 0.59 16 54.74 Comment: The umbilical artery Doppler S/D is within normal limits for this gestational age. - EVALUATION (FETUS B): Num Of Fetuses: 2 Heart Rate(bpm): 141 Cardiac Activity: Regular rhythm Lie: Maternal RT Transverse, head right Presentation: spine up, head right Placenta: Posterior Membrane Desc: Monochorionic - diamniotic Amniotic Fluid DEANNA FV: Within normal limits Largest Pocket(cm) 3.7 - BIOPHYSICAL EVALUATION (FETUS B): Amniotic F.V: Within normal limits F. Tone: Observed F. Movement: Observed Score: 8/8 F. Breathing: Observed - BIOMETRY (FETUS B): BPD: 67.7 mm G.Age: 27w 2d 28 % OFD: 90 mm HC: 252 mm G.Age: 27w 3d 16 % AC: 202.5 mm G.Age: 24w 6d < 1 % FL: 44 mm G.Age: 24w 3d < 1 % HUM: 41.6 mm G.Age: 25w 1d < 5 % LV: 5.14 mm TC: 16.54 mm < 2.5 % ULN: 40.5 mm G.Age: 26w 3d 9 % TIB: 39.4 mm G.Age: 25w 0d < 5 % RAD: 34 mm G.Age: 24w 0d 12 % FIB: 39.3 mm G.Age: 24w 5d 31 % CI: 75.2 % 70 - 86 FL/HC: 17.5 % 18.8 - 20.6 HC/AC: 1.24 1.05 - 1.21 FL/BPD: 65.0 % 71 - 87 FL/AC: 21.7 % 20 - 24 Est. FW: 767 gm 1 lb 1 (more content not included)... Normal [facility] US Follow Up Patient Name: ALAINA YODER Maternal Medicine ACCESSION EXAM DATE/TIME PROCEDURE ORDERING PROVIDER [id number] 08/28/2022 09:33 EDT [facility] US Biophy w/o [id number] -LILIA ESPINOSA non-stress Reason For Exam ([facility] US Biophy w/o non-stress) [place]/di, PPROM Addendum - OBSTETRICS REPORT (Corrected Final 08/31/2022 11:09 am) - PATIENT INFO: ID #: [id number] : [birth year] (32 yrs) Name: ALAINA YODER Visit Date: 08/28/2022 09:35 am - PERFORMED BY: Attending: Ty oHffmann MD Performed By: Lindy Du RDMS Referred By: JESÚS Barlow. Address: [address] [place] [address] B Location: Inpatient- Hospital Visit Type: Inpatient - Hospital - SERVICE(S) PROVIDED: BPP w/out NST 63679 BPP w/out NST 06761 US Doppler umbilical art 71346 US Doppler umbilical art 50[address] [place] [address] [place] [address] - INDICATIONS: [place] Di Twins FGR B [facility] patient Cardiac Defects on both babies Intermittent AEDF on Baby B - VITAL SIGNS: Height: 5'8 - EVALUATION (FETUS A): Num Of Fetuses: 2 Heart Rate(bpm): 147 Cardiac Activity: Regular rhythm Lie: Longitudinal Maternal LT Presentation: Cephalic Placenta: Anterior Maternal Medicine Addendum Membrane Desc: Monochorionic - diamniotic Membrane Size: Normal Amniotic Fluid DEANNA FV: Within normal limits Largest Pocket(cm) 3.5 - BIOPHYSICAL EVALUATION (FETUS A): Amniotic F.V: Within normal limits F. Tone: Observed F. Movement: Observed Score: 8/8 F. Breathing: Observed - BIOMETRY (FETUS A): BPD: 75.1 mm G.Age: 30w 1d 97 % OFD: 95.5 mm HC: 272 mm G.Age: 29w 5d 84 % AC: 239.5 mm G.Age: 28w 2d 63 % FL: 51.1 mm G.Age: 27w 3d 29 % LV: 3.86 mm CI: 78.6 % 70 - 86 FL/HC: 18.8 % 18.8 - 20.6 HC/AC: 1.14 1.05 - 1.21 FL/BPD: 68.0 % 71 - 87 FL/AC: 21.3 % 20 - 24 Est. FW: 1190 gm 2 lb 10 oz 59 % FW Discordancy: 0 \ 36 % - GESTATIONAL AGE (FETUS A): Clinical DEWEY: 27w 4d DEWEY: 11/23/22 U/S Today: 28w 6d DEWEY: 11/14/22 Best: 27w 4d Det. By: Clinical DEWEY DEWEY: 11/23/22 - ANATOMY (FETUS A): Cranium: Normal appearance Ventricles: Normal appearance Choroid Plexus: Normal appearance Thoracic: Normal appearance Heart: Known cardiac defect RVOT: Abnormal LVOT: Normal appearance Diaphragm: Normal appearance Stomach: Normal appearance Abdomen: Normal appearance Abdominal Wall: Normal appearance Cord Vessels: 3-Vessel Cord Kidneys: Normal appearance Bladder: Normal appearance Upper Extremities: Present Lower Extremities: Present Other: Known pulmonary valve hypoplasia - DOPPLER - VESSELS (FETUS A): Umbilical Artery S/D %tile RI %tile PSV Maternal Medicine Addendum (cm/s) 2.47 17 0.59 16 54.74 Comment: The umbilical artery Doppler S/D is within normal limits for this gestational age. - EVALUATION (FETUS B): Num Of Fetuses: 2 Heart Rate(bpm): 141 Cardiac Activity: Regular rhythm Lie: Maternal RT Transverse, head right Presentation: spine up, head right Placenta: Posterior Membrane Desc: Monochorionic - diamniotic Amniotic Fluid DEANNA FV: Within normal limits Largest Pocket(cm) 3.7 - BIOPHYSICAL EVALUATION (FETUS B): Amniotic F.V: Within normal limits F. Tone: Observed F. Movement: Observed Score: 06/12 F. Breathing: Observed - BIOMETRY (FETUS B): BPD: 67.7 mm G.Age: 27w 2d 28 % OFD: 90 mm HC: 252 mm G.Age: 27w 3d 16 % AC: 202.5 mm G.Age: 24w 6d < 1 % FL: 44 mm G.Age: 24w 3d < 1 % HUM: 41.6 mm G.Age: 25w 1d < 5 % LV: 5.14 mm TC: 16.54 mm < 2.5 % ULN: 40.5 mm G.Age: 26w 3d 9 % TIB: 39.4 mm G.Age: 25w 0d < 5 % RAD: 34 mm G.Age: 24w 0d 12 % FIB: 39.3 mm G.Age: 24w 5d 31 % CI: 75.2 % 70 - 86 FL/HC: 17.5 % 18.8 - 20.6 HC/AC: 1.24 1.05 - 1.21 FL/BPD: 65.0 % 71 - 87 FL/AC: 21.7 % 20 - 24 Est. FW: 767 gm 1 lb 11 oz 19 % (more content not included)... Normal [facility] US Umbilical Artery Echo on 08-28-2022 [facility] US Umbilical Artery Echo Patient Name: ALAINA YODER Maternal Medicine ACCESSION EXAM DATE/TIME PROCEDURE ORDERING PROVIDER [id number] 08/28/2022 09:33 EDT [facility] US Biophy w/o [id number] -LILIA ESPINOSA non-stress Reason For Exam (M US Biophy w/o non-stress) [place]/di, PPROM Addendum - OBSTETRICS REPORT (Corrected Final 08/31/2022 11:09 am) - PATIENT INFO: ID #: [id number] : [birth year] (32 yrs) Name: ALAINA YODER Visit Date: 08/28/2022 09:35 am - PERFORMED BY: Attending: Ty Hoffmann MD Performed By: Lindy Du RDMS Referred By: JESÚS RODRIGUES DO Ref. Address: [address] [place] [address] B-1 Location: Inpatient- Hospital Visit Type: Inpatient - Hospital - SERVICE(S) PROVIDED: BPP w/out NST 42020 BPP w/out NST 27022 US Doppler umbilical art 56280 US Doppler umbilical art 97364 [place] [address] [place] [address] - INDICATIONS: [place] Di Twins FGR B [facility] patient Cardiac Defects on both babies Intermittent AEDF on Baby B - VITAL SIGNS: Height: 5'8 - EVALUATION (FETUS A): Num Of Fetuses: 2 Heart Rate(bpm): 147 Cardiac Activity: Regular rhythm Lie: Longitudinal Maternal LT Presentation: Cephalic Placenta: Anterior Maternal Medicine Addendum Membrane Desc: Monochorionic - diamniotic Membrane Size: Normal Amniotic Fluid DEANNA FV: Within normal limits Largest Pocket(cm) 3.5 - BIOPHYSICAL EVALUATION (FETUS A): Amniotic F.V: Within normal limits F. Tone: Observed F. Movement: Observed Score: 88 F. Breathing: Observed - BIOMETRY (FETUS A): BPD: 75.1 mm G.Age: 30w 1d 97 % OFD: 95.5 mm HC: 272 mm G.Age: 29w 5d 84 % AC: 239.5 mm G.Age: 28w 2d 63 % FL: 51.1 mm G.Age: 27w 3d 29 % LV: 3.86 mm CI: 78.6 % 70 - 86 FL/HC: 18.8 % 18.8 - 20.6 HC/AC: 1.14 1.05 - 1.21 FL/BPD: 68.0 % 71 - 87 FL/AC: 21.3 % 20 - 24 Est. FW: 1190 gm 2 lb 10 oz 59 % FW Discordancy: 0 \ 36 % - GESTATIONAL AGE (FETUS A): Clinical DEWEY: 27w 4d DEWEY: 11/23/22 U/S Today: 28w 6d DEWEY: 11/14/22 Best: 27w 4d Det. By: Clinical DEWEY DEWEY: 11/23/22 - ANATOMY (FETUS A): Cranium: Normal appearance Ventricles: Normal appearance Choroid Plexus: Normal appearance Thoracic: Normal appearance Heart: Known cardiac defect RVOT: Abnormal LVOT: Normal appearance Diaphragm: Normal appearance Stomach: Normal appearance Abdomen: Normal appearance Abdominal Wall: Normal appearance Cord Vessels: 3-Vessel Cord Kidneys: Normal appearance Bladder: Normal appearance Upper Extremities: Present Lower Extremities: Present Other: Known pulmonary valve hypoplasia - DOPPLER - VESSELS (FETUS A): Umbilical Artery S/D %tile RI %tile PSV Maternal Medicine Addendum (cm/s) 2.47 17 0.59 16 54.74 Comment: The umbilical artery Doppler S/D is within normal limits for this gestational age. - EVALUATION (FETUS B): Num Of Fetuses: 2 Heart Rate(bpm): 141 Cardiac Activity: Regular rhythm Lie: Maternal RT Transverse, head right Presentation: spine up, head right Placenta: Posterior Membrane Desc: Monochorionic - diamniotic Amniotic Fluid DEANNA FV: Within normal limits Largest Pocket(cm) 3.7 - BIOPHYSICAL EVALUATION (FETUS B): Amniotic F.V: Within normal limits F. Tone: Observed F. Movement: Observed Score: 8/8 F. Breathing: Observed - BIOMETRY (FETUS B): BPD: 67.7 mm G.Age: 27w 2d 28 % OFD: 90 mm HC: 252 mm G.Age: 27w 3d 16 % AC: 202.5 mm G.Age: 24w 6d < 1 % FL: 44 mm G.Age: 24w 3d < 1 % HUM: 41.6 mm G.Age: 25w 1d < 5 % LV: 5.14 mm TC: 16.54 mm < 2.5 % ULN: 40.5 mm G.Age: 26w 3d 9 % TIB: 39.4 mm G.Age: 25w 0d < 5 % RAD: 34 mm G.Age: 24w 0d 12 % FIB: 39.3 mm G.Age: 24w 5d 31 % CI: 75.2 % 70 - 86 FL/HC: 17.5 % 18.8 - 20.6 HC/AC: 1.24 1.05 - 1.21 FL/BPD: 65.0 % 71 - 87 FL/AC: 21.7 % 20 - 24 Est. FW: 767 gm 1 lb 11 oz 19 % (more content not included)... Normal [facility] Glucose,Bedsideon 08-27-2022 Glucose [Mass/Vol] 105 mg/dL High 70-100 [facility] Comment on above: Result Comment: Test performed by glucose meter. Results may be 10%-15% lower than serum/plasma values. (CLIA ID [id number]) Performed By: #### C RTUR, TPUR #### [facility] [address] [place] [address] Glucose [Mass/Vol] 137 mg/dL High 70-100 [facility] Comment on above: Result Comment: Test performed by glucose meter. Results may be 10%-15% lower than serum/plasma values. (CLIA ID [id number]) Performed By: #### B GLU #### [facility] [address] [place] [address] Glucose [Mass/Vol] 94 mg/dL Normal 70-100 [facility] Comment on above: Result Comment: Test performed by glucose meter. Results may be 10%-15% lower than serum/plasma values. (CLIA ID [id number]) Performed By: #### B GLU #### [facility] [address] [place] [address] Glucose [Mass/Vol] 85 mg/dL Normal 70-100 [facility] Comment on above: Result Comment: Test performed by glucose meter. Results may be 10%-15% lower than serum/plasma values. (CLIA ID [id number]) Performed By: #### B GLU #### [facility] [address], [place] TS GELon 08-27-2022 TS GEL ABO Group: O Rh, Gel: POS Antibody Screen Gel: NEG Normal [facility] Comment on above: Performed By: #### T SGL #### [facility] CULTURE URINEon 08-26-2022 CULTURE URINE CULTURE URINE --> Status: F Normal urogenital samuel present. Normal [facility] Comment on above: Performed By: #### C /UR ####[facility] [id number] [place], [place] Glucose,Bedsideon 08-26-2022 Glucose [Mass/Vol] 134 mg/dL High 70-100 [facility] Comment on above: Result Comment: Test performed by glucose meter. Results may be 10%-15% lower than serum/plasma values. (CLIA ID [id number]) Performed By: #### B GLU #### [facility] [address] [place], [place] Glucose [Mass/Vol] 136 mg/dL High 70-100 [facility] Comment on above: Result Comment: Test performed by glucose meter. Results may be 10%-15% lower than serum/plasma values. (CLIA ID [id number]) Performed By: #### B GLU #### [facility] [address] [place], [place] Glucose [Mass/Vol] 182 mg/dL High 70-100 [facility] Comment on above: Result Comment: Test performed by glucose meter. Results may be 10%-15% lower than serum/plasma values. (CLIA ID [id number]) Performed By: #### B GLU #### [facility] [address] [place] [address] Glucose [Mass/Vol] 130 mg/dL High 70-100 [facility] Comment on above: Result Comment: Test performed by glucose meter. Results may be 10%-15% lower than serum/plasma values. (CLIA ID [id number]) Performed By: #### B GLU #### [facility] [address] [place], [place] Group B Strep Screen PCRon 1 Group B Strep Screen PCR Group B Strep Screen PCR --> Status: F NEGATIVE Expected Result: Negative CDC guidelines for prevention of Group B Strep disease recommends collection of both vaginal and rectal specimens for optimal recovery of GBS. Methodology - Real Time PCR (Cepheid) Expected Result: Negative CDC guidelines for prevention of Group B Strep disease recommends collection of both vaginal and rectal specimens for optimal recovery of GBS. Methodology - Real Time PCR (Cepheid) Normal [facility] Comment on above: Performed By: #### G BSPC ####[facility] [place], [place] Chlamydia and GC PCR Panelon 08-25-2022 Chlamydia and GC PCR Panel Chlamydia trachomatis PCR --> Status: F NOT Detected Chlamydia trachomatis Nucleic Acid NOT Detected by DNA Amplification using the Cepheid System. Culture is the only recommended test in medical-legal cases such as suspected child abuse or molestation. Chlamydia trachomatis Nucleic Acid NOT Detected by DNA Amplification using the Cepheid System. Culture is the only recommended test in medical-legal cases such as suspected child abuse or molestation. Neisseria gonorrhoeae PCR --> Status: F NOT Detected Neisseria gonorrhoeae Nucleic Acid NOT Detected by DNA Amplification using the [employer]ep[employer] System. Culture is the only recommended test in medical-legal cases such as suspected child abuse or molestation. Neisseria gonorrhoeae Nucleic Acid NOT Detected by DNA Amplification using the Cepheid System. Culture is the only recommended test in medical-legal cases such as suspected child abuse or molestation. Normal [facility] Comment on above: Performed By: #### T VPCR, CTNGP ####[facility] [place], [place] Comp Metabolic Panelon 08-25 ALP [Catalytic activity/Vol] 135 U/L High 38-126 [facility] Comment on above: Performed By: #### C RTUR, TPUR #### [facility] [address] [place], [place] ALT [Catalytic activity/Vol] 13 U/L Normal 0-34 [facility] Comment on above: Result Comment: The ALT test is performed by an updated assay method. Please note that the reference intervals have been changed and are now sex specific. Performed By: #### C RTUR, TPUR #### [facility] [address], [place] Calcium [Mass/Vol] 9.3 mg/dL Normal 8.4-10.4 [facility] Comment on above: Performed By: #### C RTUR, TPUR #### [place] [address], [place] Glucose [Mass/Vol] 91 mg/dL Normal 70-100 [facility] Comment on above: Performed By: #### C RTUR, TPUR #### [place] [address], [place] Urea nitrogen [Mass/Vol] 18 mg/dL Normal 9-20 [facility] Comment on above: Performed By: #### C RTUR, TPUR #### [place] [address], [place] Anion gap [Moles/Vol] 7 mmol/L Normal 3-13 [facility] Comment on above: Performed By: #### C RTUR, TPUR #### [place] [address], [place] AST [Catalytic activity/Vol] 34 U/L Normal 15-46 [facility] Comment on above: Performed By: #### C RTUR, TPUR #### [place] [address], [place] Bilirubin [Mass/Vol] 0.4 mg/dL Normal 0.2-1.3 [facility] Comment on above: Performed By: #### C RTUR, TPUR #### [place] [address], [place] CO2 [Moles/Vol] 22 mmol/L Normal 22-30 [facility] Comment on above: Performed By: #### C RTUR, TPUR #### [place] [address], [place] Creatinine [Mass/Vol] 0.91 mg/dL Normal 0.52-1.25 [facility] Comment on above: Performed By: #### C RTRAMBO TPUR #### [facility] [address], [place] GFR/1.73 sq M.predicted among blacks MDRD (S/P/Bld) [Vol rate/Area] mL/min/{1.73_m2} Normal >60 [facility] Comment on above: Performed By: #### C RTRAMBO TPUR #### [facility] [address], [place] GFR/1.73 sq M.predicted among non-blacks MDRD (S/P/Bld) [Vol rate/Area] 84.4 mL/min/{1.73_m2} Normal >60 [facility] Comment on above: Result Comment: KDIG O guidelines provide the following GFR categories: Stage GFR(ml/min/1.73 m2) Terms G1 >=90 Normal or high G2 60-89 Mildly decreased* G3a 45-59 Mildly to moderately decreased G3b 30-44 Moderately to severely decreased G4 15-29 Severely decreased G5 <15 Kidney failure *Relative to young adult level. In the absence of evidence of kidney damage, neither GFR category G1 nor G2 fulfill the criteria for CKD. The CKD-EPI equation is validated in individuals 18 years of age and older. Currently the best equation for estimating glomerular filtration rate (GFR) from serum creatinine in children is the Bedside Reyes equation. It is less accurate in patients with extremes of muscle mass, restriction of dietary protein, ingestion of creatine, extra-renal metabolism of creatinine, or treatment with medications that affect renal tubular creatinine secretion. Performed By: #### C RTRAMBO TPUR #### [facility] [address], [place] Protein [Mass/Vol] 6.9 g/dL Normal 6.3-8.2 [facility] Comment on above: Performed By: #### C RTRAMBO TPUR #### [facility] [address], [place] Potassium [Moles/Vol] 4.0 mmol/L Normal 3.5-5.1 [facility] Comment on above: Performed By: #### C RTRAMBO TPUR #### [facility] [address] [place] [address] Sodium [Moles/Vol] 135 mmol/L Normal 135-145 [facility] Comment on above: Performed By: #### C RTRAMBO, TPUR #### [facility] [address] [place] [facility] [place] [address] Albumin [Mass/Vol] 3.7 g/dL Normal 3.5-5.0 [facility] Comment on above: Performed By: #### C RTUR, TPUR #### [facility] [address] [place] [address] Chloride [Moles/Vol] 106 mmol/L Normal 98-107 [facility] Comment on above: Performed By: #### C RTRAMBO, TPUR #### [facility] [address] [place] [address] Creatinine, Ur Randomon 10- Creatinine, Ur Random 88.5 mg/dL Normal No Range [facility] Comment on above: Performed By: #### C RTRAMBO, TPUR #### [facility] [address] [place] [address] Glucose,Bedsideon 08-25-2022 Glucose [Mass/Vol] 166 mg/dL High 70-100 [facility] Comment on above: Result Comment: Test performed by glucose meter. Results may be 10%-15% lower than serum/plasma values. (CLIA ID [id number]) Performed By: #### C RTRAMBO, TPUR #### [facility] [address] [place] [address] Glucose [Mass/Vol] 185 mg/dL High 70-100 [facility] Comment on above: Result Comment: Test performed by glucose meter. Results may be 10%-15% lower than serum/plasma values. (CLIA ID [id number]) Performed By: #### C RTUR, TPUR #### [facility] [address] [place] [address] Glucose [Mass/Vol] 99 mg/dL Normal 70-100 [facility] Comment on above: Result Comment: Test performed by glucose meter. Results may be 10%-15% lower than serum/plasma values. (CLIA ID [id number]) Performed By: #### B GLU #### [place] [address], [place] Hemogramon 08-25-2022 Erythrocyte distribution width (RBC) [Ratio] 13.3 % Normal 11.5-14.5 [facility] Comment on above: Performed By: #### C KAYA TPUR #### [place] [address], [place] Hematocrit (Bld) [Volume fraction] 39.3 % Normal 35.0-47.0 [facility] Comment on above: Performed By: #### C ANDREINA KIRKPATRICK #### [place] [address], [place] Hemoglobin (Bld) [Mass/Vol] 13.3 g/dL Normal 11.7-16.0 [facility] Comment on above: Performed By: #### C ANDREINA KIRKPATRICK #### [place] [address], [place] MCH (RBC) [Entitic mass] 33.0 pg Normal 26.0-34.0 [facility] Comment on above: Performed By: #### C ANDREINA KIRKPATRICK #### [place] [address], [place] MCHC 34.0 % Normal 32.0-36.0 [facility] Comment on above: Performed By: #### C KAYA TPRAMBO #### [place] [address], [place] MCV (RBC) [Entitic vol] 97.2 fL Normal 79.0-98.0 [facility] Comment on above: Performed By: #### C KAYA TPUR #### [place] [address], [place] Platelet mean volume (Bld) [Entitic vol] 8.0 fL Normal 7.4-12.4 [facility] Comment on above: Result Comment: MPV is a calculated measurement using platelet volume ratio. Performed By: #### C KAYA TPRAMBO #### [facility] [address], [place] Platelets (Bld) [#/Vol] 248 10*3/uL Normal 140-440 [facility] Comment on above: Performed By: #### C RTUR, TPUR #### [facility] [address], [place] RBC (Bld) [#/Vol] 4.04 10*6/uL Normal 3.80-5.20 [facility] Comment on above: Performed By: #### C RTUR, TPUR #### [facility] [address] [place] [address] WBC (Bld) [#/Vol] 9.2 10*3/uL Normal 3.6-10.7 [facility] Comment on above: Performed By: #### C RTUR, TPUR #### [facility] [address], [place] MFM US Biophy w/o non- stresson 08-25-2022 MFM US Biophy w/o non-stress Patient Name: ALAINA YODER Maternal Medicine ACCESSION EXAM DATE/TIME PROCEDURE ORDERING PROVIDER [id number] 08/25/2022 08:50 EDT [facility] US Biophy w/o [id number] -RUIZ CARDOZA non-stress Reason For Exam (MFM US Biophy w/o non-stress) MONO DI TWINS.IUGR Report - OBSTETRICS REPORT (Signed Final 08/25/2022 10:53 am) - PATIENT INFO: ID #: [id number] : [birth year] (32 yrs) Name: ALAINA YODER Visit Date: 08/25/2022 08:45 am - PERFORMED BY: Attending: Ty Hoffmann MD Performed By: Mraylou Yun Referred By: RUIZ CARDOZA Visit Type: Inpatient - Hospital - SERVICE(S) PROVIDED: BPP w/out NST 43879 BPP w/out NST 31600 US Doppler umbilical art 85265 US Doppler umbilical art 80704 - INDICATIONS: [place] Di Twins R B [facility] patient Cardiac Defects on both babies - VITAL SIGNS: Weight (lb): 158 Height: 5'8 BMI: 24.02 - EVALUATION (FETUS A): Num Of Fetuses: 2 Heart Rate(bpm): 139 Cardiac Activity: Regular rhythm Lie: Longitudinal Maternal LT Presentation: Cephalic Placenta: Posterior Membrane Desc: Monochorionic - diamniotic Amniotic Fluid Maternal Medicine Report DEANNA FV: Within normal limits Largest Pocket(cm) 2.1 RUQ(cm) 2.1 - BIOPHYSICAL EVALUATION (FETUS A): Amniotic F.V: Within normal limits F. Tone: Observed F. Movement: Observed Score: 06/12 F. Breathing: Observed - BIOMETRY (FETUS A): - GESTATIONAL AGE (FETUS A): Clinical DEWEY: 27w 1d DEWEY: 11/23/22 Best: 27w 1d Det. By: Clinical DEWEY DEWEY: 11/23/22 - DOPPLER - VESSELS (FETUS A): Umbilical Artery S/D %tile RI %tile PI %tile PSV (cm/s) 2.27 8 0.56 5 0.81 9 58.99 - EVALUATION (FETUS B): Num Of Fetuses: 2 Heart Rate(bpm): 145 Cardiac Activity: Regular rhythm Lie: Longitudinal Maternal RT Presentation: Breech Placenta: Posterior Amniotic Fluid DEANNA FV: Within normal limits Largest Pocket(cm) 2.1 RUQ(cm) 2.1 - BIOPHYSICAL EVALUATION (FETUS B): Amniotic F.V: Within normal limits F. Tone: Observed F. Movement: Observed Score: 8/8 F. Breathing: Observed - BIOMETRY (FETUS B): - GESTATIONAL AGE (FETUS B): Clinical DEWEY: 27w 1d DEWEY: 11/23/22 Best: 27w 1d Det. By: Clinical DEWEY DEWEY: 11/23/22 - DOPPLER - VESSELS (FETUS B): Maternal Medicine Report Umbilical Artery S/D %tile RI %tile PI %tile PSV (cm/s) 5.02 > 97.5 0.8 96 1.5 > 97.5 33.81 Umbilical Artery ADFV Yes Comment: The umbilical artery Doppler S/D is elevated (>97th percentile) for this gestational age. Intermittently absent flow noted - IMPRESSION: - Monochorionic diamnioatic twin live intrauterine at 27w 1d. - Normal amniotic fluid volume and distribution X 2 and bladders visualized X 2 - Reassuring BPP for both twins. Intermittent absent flow Twin B noted today Continued IP managment Ultrasound is not diagnostic of chromosomal aneuploidy and does not detect all subtle defects. Normal ultrasound findings do not guarantee normal outcomes. - yT Hoffmann MD Electronically Signed Final Report 08/25/2022 10:53 am - Final Dictated: 08/25/2022 8:45 am Dictating Physician: TY LOZANO Signed Date and Time: 08/25/2022 10:53 am Signed by: TY LOZANO Ultrasound ACCESSION EXAM DATE/TIME PROCEDURE ORDERING PROVIDER [id number] 08/25/2022 08:50 EDT [facility] US Biophy w/o [id number] -RUIZ CARDOZA non-stress Reason For Exam (M US Biophy w/o non-stress) MONO DI TWINS.IUGR Report ---- (more content not included)... Normal [facility] Protein, Ur Randomon 022 Protein, Ur Random < 5 Normal No Range [facility] Comment on above: Performed By: #### C RTUR, TPUR #### [facility] [address] [place] [address] TS GELon 08-25-2022 TS GEL ABO Group: O Rh, Gel: POS Antibody Screen Gel: NEG Normal [facility] Comment on above: Performed By: #### T SGL #### [facility] Trichomonas vaginalis PCRon 08-25-2022 Trichomonas vaginalis PCR Trichomonas vaginalis PCR --> Status: F NOT Detected Reference Interval: Not Detected Method: Real-time PCR. Negative results do not completely rule out infection with Trichomonas vaginalis. Reference Interval: Not Detected Method: Real-time PCR. Negative results do not completely rule out infection with Trichomonas vaginalis. Normal [facility] Comment on above: Performed By: #### T VPCR, CTNGP ####[facility] [id number] [place] [address] Progress Noteon 08-21-2022 Manager State Authentication Interface Message Text Visit Subjective: Alaina Yoder is being seen today for an obstetrical visit. She is at 26w4d gestation. Her obstetrical history is significant for mono/di twins, IUGR, early thickened NT Twin A, cardiac defects on twins, vitamin D deficiency. history fully reviewed. She is accompanied by her . Signs and Symptoms of Labor Alaina presents with no labor symptoms. Movement Alaina reports normal movement. Vaginal Bleeding During Alaina denies any vaginal bleeding at this time. Vaginal DischargeSbrianna denies any unusual or increase in vaginal discharge. Rupture of Membranes/Leaking Fluid The patient denies any leaking of fluid at this time. Signs and Symptoms of Preeclampsia Alaina is presenting with no preeclampsia symptoms. Pain Scale Alaina denies any signs or symptoms of pain. Review of Systems All other systems reviewed and are negative. Objective: BP 112/64 Wt 75.2 kg (165 lb 11.2 oz) LMP 02/16/2022 BMI 25.19 kg/m Physical Exam Vitals reviewed. Constitutional: Appearance: She is well-developed and well-nourished. HENT: Head: Atraumatic. Pulmonary: Effort: Pulmonary effort is normal. Abdominal: Comments: gravid Musculoskeletal: General: Normal range of motion. Neurological: Mental Status: She is alert. Psychiatric: Mood and Affect: Mood and affect normal. Behavior: Behavior normal. Thought Content: Thought content normal. Judgment: Judgment normal. FHT: 143/153 Presentation: N/A See imaging report for full details of todays scan-Dr Ochoa spoke with pt regarding findings and plan Assessment/Plan: Alaina Yoder is a 32 y.o. at 26w4d with: Active Non-Hospital Problems Diagnosis Date Noted Supervision of other high risk pregnancies, second trimester 08/17/2022 PLAN OF CARE- Transfer from [facility] 08/21/22 MD/OB APPOINTMENTS Genetic screening: NIPT low risk How often should patient be evaluated? q 2 weeks until 32 weeks then weekly until delivery Work restrictions: NA EVALUATION surveillance: twice weekly BPP and twice weekly UAD Ultrasound: growth every 2 weeks. echocardiograms with heart center as indicated 08/08/22 Baseline PEC completed. Prot <6 but random protein 327 DELIVERY PLAN Hospital: [facility] Inpatient admission at [facility] and repeat rescue steroids/Magnesium for neuroprotection if concerns for persistent AEDF, pre-eclampsia or labor or any concerns related to testing of either baby. Timing of delivery/possible inpatient monitoring is dependent on follow-up ultrasound and doppler assessment. Delivery timing to include Dr. Jordan's input and may need to have a multidisciplinary meeting at the request of the family with hopes if stable to be delivered at 32-34 6/7 weeks based upon ACOG medical indications guidelines for FGR with MCDI twins. GBS culture: Contraception: :breast and bottle ACHP Jn: Intrauterine growth restriction affecting antepartum care of mother in second trimester, fetus 2 07/20/2022 Treatment Center Plan of Care updated on 08/21/22 Diagnosis: Monochorionic, diamniotic twin gestation with type 1 selective growth restriction of baby B. 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 Otherwise, structurally normal heart 07/26/22; 08-17-22: [facility] Cell free DNA aneuploidy screening is low risk. Declined invasive testing, infection studies, and expanded carrier screening. BMZ give 07-27-22 and 07-28-22 at [place] [facility]. Plan: 1. Transfer of care has been completed to [facility] Maternal Medicine. 2. Follow up q2 weeks to evaluate biometric parameters and q4 weeks to evaluate anatomy. These are planned with the Treatment Center. 3. surveillance as follows: twice weekly BPP with twice weekly UA Doppler assessments given IAEDF. These are planned with the Treatment Center. 4. echocardiogram with Pediatric Cardiology has been completed. Follow up per Cardiology recommendations 5. consultation with Neonatology has been completed. consultation with CT Surgery dependent on further Echos. 6. Delivery is planned in [place]. 7. Inpatient admission at [facility] and repeat rescue steroids/Magnesium for neuroprotection if concerns for persistent AEDF, pre-eclampsia or labor or any concerns related to testing of either baby 8. Timing of delivery/possible inpatient monitoring is dependent on follow-up ultrasound and doppler assessment. (08-15-22 Patient reiterated today with her delivery timing/planning if stable to includ (more content not included)... Normal [facility] US Biophy w/o non- stresson 08-15-2022 [facility] US Biophy w/o non-stress Patient Name: ALAINA YODER Maternal Medicine ACCESSION EXAM DATE/TIME PROCEDURE ORDERING PROVIDER [id number] 08/15/2022 16:05 EDT [facility] US Biophy w/o MD LOZANO BRIAN non-stress Reason For Exam ([facility] US Biophy w/o non-stress) [place]/di twins iugr B Report - OBSTETRICS REPORT (Signed Final 08/15/2022 05:34 pm) - PATIENT INFO: ID #: [id number] : [birth year] (32 yrs) Name: ALAINA YODER Visit Date: 08/15/2022 04:03 pm - PERFORMED BY: Attending: Ty Hoffmann MD Performed By: Ander Elena Referred By: GUERO LOZANO Location: [facility] Visit Type: Outpatient - SERVICE(S) [place]: [place] [id number] [place] [address] BPP w/out NST 26612 BPP w/out NST 83234 US Doppler umbilical art 62103 US Doppler umbilical art 70270 - INDICATIONS: FGR B [place] di twins [place] [facility] patient - EVALUATION (FETUS A): Num Of Fetuses: 2 Heart Rate(bpm): 148 Cardiac Activity: Regular rhythm Lie: Longitudinal Presentation: Cephalic Placenta: Posterior Amniotic Fluid DEANNA FV: Within normal limits Largest Pocket(cm) 4.7 Maternal Medicine Report Comment: Maternal LT - BIOPHYSICAL EVALUATION (FETUS A): Amniotic F.V: Within normal limits F. Tone: Observed F. Movement: Observed Score: 8/8 F. Breathing: Observed - BIOMETRY (FETUS A): BPD: 71.1 mm G.Age: 28w 4d 99 % OFD: 90.1 mm HC: 257.6 mm G.Age: 28w 0d 93 % AC: 222.4 mm G.Age: 26w 5d 71 % FL: 47.3 mm G.Age: 25w 6d 38 % LV: 5.08 mm CI: 78.9 % 70 - 86 FL/HC: 18.4 % 18.6 - 20.4 HC/AC: 1.16 1.04 - 1.22 FL/BPD: 66.5 % 71 - 87 FL/AC: 21.3 % 20 - 24 Est. FW: 957 gm 2 lb 2 oz 61 % FW Discordancy: 0 \ 43 % - GESTATIONAL AGE (FETUS A): Clinical DEWEY: 25w 5d DEWEY: 11/23/22 U/S Today: 27w 2d DEWEY: 11/12/22 Best: 25w 5d Det. By: Clinical DEWEY DEWEY: 11/23/22 - DOPPLER - VESSELS (FETUS A): Umbilical Artery S/D %tile RI %tile PI %tile PSV (cm/s) 2.64 18 0.62 18 0.91 19 75.2 - EVALUATION (FETUS B): Num Of Fetuses: 2 Heart Rate(bpm): 163 Cardiac Activity: Regular rhythm Lie: Longitudinal Presentation: Cephalic Placenta: Posterior Amniotic Fluid DEANNA FV: Within normal limits Largest Pocket(cm) 2.41 Comment: Maternal RT - BIOPHYSICAL EVALUATION (FETUS B): Amniotic F.V: Within normal limits F. Tone: Observed F. Movement: Observed Score: 06/12 F. Breathing: Observed - Maternal Medicine Report BIOMETRY (FETUS B): BPD: 64.1 mm G.Age: 25w 6d 48 % OFD: 85.2 mm HC: 238.1 mm G.Age: 25w 6d 31 % AC: 172.4 mm G.Age: 22w 1d < 1 % FL: 39.9 mm G.Age: 22w 6d < 1 % LV: 4.08 mm CI: 75.2 % 70 - 86 FL/HC: 16.8 % 18.6 - 20.4 HC/AC: 1.38 1.04 - 1.22 FL/BPD: 62.2 % 71 - 87 FL/AC: 23.1 % 20 - 24 Est. FW: 548 gm 1 lb 3 oz 13 % FW Discordancy: 43 % - GESTATIONAL AGE (FETUS B): Clinical DEWEY: 25w 5d DEWEY: 11/23/22 U/S Today: 24w 1d DEWEY: 12/04/22 Best: 25w 5d Det. By: Clinical DEWEY DEWEY: 11/23/22 - DOPPLER - VESSELS (FETUS B): Umbilical Artery S/D %tile RI %tile PI %tile PSV (cm/s) 4.16 85 0.76 83 1.29 86 37.45 - IMPRESSION: 1. Monochorionic dichorionic twin gestation at 25w 5d by clinically established DEWEY and previous scans performed at [facility] last growth performed on 08/03/22 Growth today Twin A 957g (previously 739g) and Twin B known FGR 548g (previously 445g) there is a 43% discordance, previously noted to be 39.7% 2. Discordant growth with known Twin B FGR and prior IAEDF now with forward flow and no AEDF 3. Normal UA Doppler assessment for both twins. 4. Normal BPP and amniotic fluid volume for both twins. No signs of TTTS and bladders easily visualized X 2 today 5. 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 Normal [facility] US Biophy w/o non-stress Patient Name: ALAINA YODER Maternal Medicine ACCESSION EXAM DATE/TIME PROCEDURE ORDERING PROVIDER [id number] 08/15/2022 16:05 EDT [facility] US Biophy w/o MD LOZANO BRIAN non-stress Reason For Exam ([facility] US Biophy w/o non-stress) Mo/Di, FGR Report - OBSTETRICS REPORT (Signed Final 08/15/2022 05:34 pm) - PATIENT INFO: ID #: [id number] : [birth year] (32 yrs) Name: ALAINA YODER Visit Date: 08/15/2022 04:03 pm - PERFORMED BY: Attending: Ty Hoffmann MD Performed By: Ander Elena Referred By: GUERO LOZANO Location: [facility] Visit Type: Outpatient - SERVICE(S) [place]: [place] [id number] [place] [address] BPP w/out NST 81548 BPP w/out NST 70827 US Doppler umbilical art 46868 US Doppler umbilical art 61447 - INDICATIONS: FGR B [place] di twins [place] [facility] patient - EVALUATION (FETUS A): Num Of Fetuses: 2 Heart Rate(bpm): 148 Cardiac Activity: Regular rhythm Lie: Longitudinal Presentation: Cephalic Placenta: Posterior Amniotic Fluid DEANNA FV: Within normal limits Largest Pocket(cm) 4.7 Maternal Medicine Report Comment: Maternal LT - BIOPHYSICAL EVALUATION (FETUS A): Amniotic F.V: Within normal limits F. Tone: Observed F. Movement: Observed Score: 8/8 F. Breathing: Observed - BIOMETRY (FETUS A): BPD: 71.1 mm G.Age: 28w 4d 99 % OFD: 90.1 mm HC: 257.6 mm G.Age: 28w 0d 93 % AC: 222.4 mm G.Age: 26w 5d 71 % FL: 47.3 mm G.Age: 25w 6d 38 % LV: 5.08 mm CI: 78.9 % 70 - 86 FL/HC: 18.4 % 18.6 - 20.4 HC/AC: 1.16 1.04 - 1.22 FL/BPD: 66.5 % 71 - 87 FL/AC: 21.3 % 20 - 24 Est. FW: 957 gm 2 lb 2 oz 61 % FW Discordancy: 0 \ 43 % - GESTATIONAL AGE (FETUS A): Clinical DEWEY: 25w 5d DEWEY: 11/23/22 U/S Today: 27w 2d DEWEY: 11/12/22 Best: 25w 5d Det. By: Clinical DEWEY DEWEY: 11/23/22 - DOPPLER - VESSELS (FETUS A): Umbilical Artery S/D %tile RI %tile PI %tile PSV (cm/s) 2.64 18 0.62 18 0.91 19 75.2 - EVALUATION (FETUS B): Num Of Fetuses: 2 Heart Rate(bpm): 163 Cardiac Activity: Regular rhythm Lie: Longitudinal Presentation: Cephalic Placenta: Posterior Amniotic Fluid DEANNA FV: Within normal limits Largest Pocket(cm) 2.41 Comment: Maternal RT - BIOPHYSICAL EVALUATION (FETUS B): Amniotic F.V: Within normal limits F. Tone: Observed F. Movement: Observed Score: 8/8 F. Breathing: Observed - Maternal Medicine Report BIOMETRY (FETUS B): BPD: 64.1 mm G.Age: 25w 6d 48 % OFD: 85.2 mm HC: 238.1 mm G.Age: 25w 6d 31 % AC: 172.4 mm G.Age: 22w 1d < 1 % FL: 39.9 mm G.Age: 22w 6d < 1 % LV: 4.08 mm CI: 75.2 % 70 - 86 FL/HC: 16.8 % 18.6 - 20.4 HC/AC: 1.38 1.04 - 1.22 FL/BPD: 62.2 % 71 - 87 FL/AC: 23.1 % 20 - 24 Est. FW: 548 gm 1 lb 3 oz 13 % FW Discordancy: 43 % - GESTATIONAL AGE (FETUS B): Clinical DEWEY: 25w 5d DEWEY: 11/23/22 U/S Today: 24w 1d DEWEY: 12/04/22 Best: 25w 5d Det. By: Clinical DEWEY DEWEY: 11/23/22 - DOPPLER - VESSELS (FETUS B): Umbilical Artery S/D %tile RI %tile PI %tile PSV (cm/s) 4.16 85 0.76 83 1.29 86 37.45 - IMPRESSION: 1. Monochorionic dichorionic twin gestation at 25w 5d by clinically established DEWEY and previous scans performed at [facility] last growth performed on 08/03/22 Growth today Twin A 957g (previously 739g) and Twin B known FGR 548g (previously 445g) there is a 43% discordance, previously noted to be 39.7% 2. Discordant growth with known Twin B FGR and prior IAEDF now with forward flow and no AEDF 3. Normal UA Doppler assessment for both twins. 4. Normal BPP and amniotic fluid volume for both twins. No signs of TTTS and bladders easily visualized X 2 today 5. 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 Normal [facility] US Follow Upon 08-15-2022 [facility] US Follow Up Patient Name: ALAINA YODER Maternal Medicine ACCESSION EXAM DATE/TIME PROCEDURE ORDERING PROVIDER [id number] 08/15/2022 16:05 EDT [facility] US Biophy w/o MD EVERETTE, GUERO retana Reason For Exam ([facility] US Biophy w/o non-stress) Mo/Di, FGR Report - OBSTETRICS REPORT (Signed Final 08/15/2022 05:34 pm) - PATIENT INFO: ID #: [id number] : [birth year] (32 yrs) Name: ALAINA YODER Visit Date: 08/15/2022 04:03 pm - PERFORMED BY: Attending: Ty Hoffmann MD Performed By: Ander Elena Referred By: GUERO LOZANO Location: [facility] Visit Type: Outpatient - SERVICE(S) PROVIDED: [place] [id number] [place] [address] BPP w/out NST 95487 BPP w/out NST 59454 US Doppler umbilical art 82275 US Doppler umbilical art 44642 - INDICATIONS: FGR B [place] di twins [facility] - EVALUATION (FETUS A): Num Of Fetuses: 2 Heart Rate(bpm): 148 Cardiac Activity: Regular rhythm Lie: Longitudinal Presentation: Cephalic Placenta: Posterior Amniotic Fluid DEANNA FV: Within normal limits Largest Pocket(cm) 4.7 Maternal Medicine Report Comment: Maternal LT - BIOPHYSICAL EVALUATION (FETUS A): Amniotic F.V: Within normal limits F. Tone: Observed F. Movement: Observed Score: 8/8 F. Breathing: Observed - BIOMETRY (FETUS A): BPD: 71.1 mm G.Age: 28w 4d 99 % OFD: 90.1 mm HC: 257.6 mm G.Age: 28w 0d 93 % AC: 222.4 mm G.Age: 26w 5d 71 % FL: 47.3 mm G.Age: 25w 6d 38 % LV: 5.08 mm CI: 78.9 % 70 - 86 FL/HC: 18.4 % 18.6 - 20.4 HC/AC: 1.16 1.04 - 1.22 FL/BPD: 66.5 % 71 - 87 FL/AC: 21.3 % 20 - 24 Est. FW: 957 gm 2 lb 2 oz 61 % FW Discordancy: 0 \ 43 % - GESTATIONAL AGE (FETUS A): Clinical DEWEY: 25w 5d DEWEY: 11/23/22 U/S Today: 27w 2d DEWEY: 11/12/22 Best: 25w 5d Det. By: Clinical DEWEY DEWEY: 11/23/22 - DOPPLER - VESSELS (FETUS A): Umbilical Artery S/D %tile RI %tile PI %tile PSV (cm/s) 2.64 18 0.62 18 0.91 19 75.2 - EVALUATION (FETUS B): Num Of Fetuses: 2 Heart Rate(bpm): 163 Cardiac Activity: Regular rhythm Lie: Longitudinal Presentation: Cephalic Placenta: Posterior Amniotic Fluid DEANNA FV: Within normal limits Largest Pocket(cm) 2.41 Comment: Maternal RT - BIOPHYSICAL EVALUATION (FETUS B): Amniotic F.V: Within normal limits F. Tone: Observed F. Movement: Observed Score: 8/8 F. Breathing: Observed - Maternal Medicine Report BIOMETRY (FETUS B): BPD: 64.1 mm G.Age: 25w 6d 48 % OFD: 85.2 mm HC: 238.1 mm G.Age: 25w 6d 31 % AC: 172.4 mm G.Age: 22w 1d < 1 % FL: 39.9 mm G.Age: 22w 6d < 1 % LV: 4.08 mm CI: 75.2 % 70 - 86 FL/HC: 16.8 % 18.6 - 20.4 HC/AC: 1.38 1.04 - 1.22 FL/BPD: 62.2 % 71 - 87 FL/AC: 23.1 % 20 - 24 Est. FW: 548 gm 1 lb 3 oz 13 % FW Discordancy: 43 % - GESTATIONAL AGE (FETUS B): Clinical DEWEY: 25w 5d DEWEY: 11/23/22 U/S Today: 24w 1d DEWEY: 12/04/22 Best: 25w 5d Det. By: Clinical DEWEY DEWEY: 11/23/22 - DOPPLER - VESSELS (FETUS B): Umbilical Artery S/D %tile RI %tile PI %tile PSV (cm/s) 4.16 85 0.76 83 1.29 86 37.45 - IMPRESSION: 1. Monochorionic dichorionic twin gestation at 25w 5d by clinically established DEWEY and previous scans performed at [facility] last growth performed on 08/03/22 Growth today Twin A 957g (previously 739g) and Twin B known FGR 548g (previously 445g) there is a 43% discordance, previously noted to be 39.7% 2. Discordant growth with known Twin B FGR and prior IAEDF now with forward flow and no AEDF 3. Normal UA Doppler assessment for both twins. 4. Normal BPP and amniotic fluid volume for both twins. No signs of TTTS and bladders easily visualized X 2 today 5. 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 Normal [facility] US Follow Up Patient Name: ALAINA YODER Maternal Medicine ACCESSION EXAM DATE/TIME PROCEDURE ORDERING PROVIDER [id number] 08/15/2022 16:05 EDT [facility] US Biophy w/o MD LOZANO BRIAN non-stress Reason For Exam ([facility] US Biophy w/o non-stress) [place]/di twins, FGR B Report - OBSTETRICS REPORT (Signed Final 08/15/2022 05:34 pm) - PATIENT INFO: ID #: [id number] : [birth year] (32 yrs) Name: ALAINA YODER Visit Date: 08/15/2022 04:03 pm - PERFORMED BY: Attending: Ty Hoffmann MD Performed By: Ander Elena Referred By: GUERO LOZANO Location: [facility] Visit Type: Outpatient - SERVICE(S) PROVIDED: [place] [address] [place] [address] BPP w/out NST 49635 BPP w/out NST 53436 US Doppler umbilical art 21550 US Doppler umbilical art 51855 - INDICATIONS: FGR B [place] di twins [place] [facility] patient - EVALUATION (FETUS A): Num Of Fetuses: 2 Heart Rate(bpm): 148 Cardiac Activity: Regular rhythm Lie: Longitudinal Presentation: Cephalic Placenta: Posterior Amniotic Fluid DEANNA FV: Within normal limits Largest Pocket(cm) 4.7 Maternal Medicine Report Comment: Maternal LT - BIOPHYSICAL EVALUATION (FETUS A): Amniotic F.V: Within normal limits F. Tone: Observed F. Movement: Observed Score: 06/12 F. Breathing: Observed - BIOMETRY (FETUS A): BPD: 71.1 mm G.Age: 28w 4d 99 % OFD: 90.1 mm HC: 257.6 mm G.Age: 28w 0d 93 % AC: 222.4 mm G.Age: 26w 5d 71 % FL: 47.3 mm G.Age: 25w 6d 38 % LV: 5.08 mm CI: 78.9 % 70 - 86 FL/HC: 18.4 % 18.6 - 20.4 HC/AC: 1.16 1.04 - 1.22 FL/BPD: 66.5 % 71 - 87 FL/AC: 21.3 % 20 - 24 Est. FW: 957 gm 2 lb 2 oz 61 % FW Discordancy: 0 \ 43 % - GESTATIONAL AGE (FETUS A): Clinical DEWEY: 25w 5d DEWEY: 11/23/22 U/S Today: 27w 2d DEWEY: 11/12/22 Best: 25w 5d Det. By: Clinical DEWEY DEWEY: 11/23/22 - DOPPLER - VESSELS (FETUS A): Umbilical Artery S/D %tile RI %tile PI %tile PSV (cm/s) 2.64 18 0.62 18 0.91 19 75.2 - EVALUATION (FETUS B): Num Of Fetuses: 2 Heart Rate(bpm): 163 Cardiac Activity: Regular rhythm Lie: Longitudinal Presentation: Cephalic Placenta: Posterior Amniotic Fluid DEANNA FV: Within normal limits Largest Pocket(cm) 2.41 Comment: Maternal RT - BIOPHYSICAL EVALUATION (FETUS B): Amniotic F.V: Within normal limits F. Tone: Observed F. Movement: Observed Score: 8/8 F. Breathing: Observed - Maternal Medicine Report BIOMETRY (FETUS B): BPD: 64.1 mm G.Age: 25w 6d 48 % OFD: 85.2 mm HC: 238.1 mm G.Age: 25w 6d 31 % AC: 172.4 mm G.Age: 22w 1d < 1 % FL: 39.9 mm G.Age: 22w 6d < 1 % LV: 4.08 mm CI: 75.2 % 70 - 86 FL/HC: 16.8 % 18.6 - 20.4 HC/AC: 1.38 1.04 - 1.22 FL/BPD: 62.2 % 71 - 87 FL/AC: 23.1 % 20 - 24 Est. FW: 548 gm 1 lb 3 oz 13 % FW Discordancy: 43 % - GESTATIONAL AGE (FETUS B): Clinical DEWEY: 25w 5d DEWEY: 11/23/22 U/S Today: 24w 1d DEWEY: 12/04/22 Best: 25w 5d Det. By: Clinical DEWEY DEWEY: 11/23/22 - DOPPLER - VESSELS (FETUS B): Umbilical Artery S/D %tile RI %tile PI %tile PSV (cm/s) 4.16 85 0.76 83 1.29 86 37.45 - IMPRESSION: 1. Monochorionic dichorionic twin gestation at 25w 5d by clinically established DEWEY and previous scans performed at [facility] last growth performed on 08/03/22 Growth today Twin A 957g (previously 739g) and Twin B known FGR 548g (previously 445g) there is a 43% discordance, previously noted to be 39.7% 2. Discordant growth with known Twin B FGR and prior IAEDF now with forward flow and no AEDF 3. Normal UA Doppler assessment for both twins. 4. Normal BPP and amniotic fluid volume for both twins. No signs of TTTS and bladders easily visualized X 2 today 5. 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 Normal [facility] US Umbilical Artery Echo on 08-15-2022 [facility] US Umbilical Artery Echo Patient Name: ALAINA YODER Maternal Medicine ACCESSION EXAM DATE/TIME PROCEDURE ORDERING PROVIDER [id number] 08/15/2022 16:05 EDT [facility] US Biophy w/o MD EVERETTE, GUERO non-stress Reason For Exam ([facility] US Biophy w/o non-stress) Mo/Di, FGR Report - OBSTETRICS REPORT (Signed Final 08/15/2022 05:34 pm) - PATIENT INFO: ID #: [id number] : [birth year] (32 yrs) Name: ALAINA YODER Visit Date: 08/15/2022 04:03 pm - PERFORMED BY: Attending: Ty Hoffmann MD Performed By: Ander Elena Referred By: GUERO LOZANO Location: [facility] Visit Type: Outpatient - SERVICE(S) PROVIDED: [place] [address] [place] [address] BPP w/out NST 69006 BPP w/out NST 72872 US Doppler umbilical art 24461 US Doppler umbilical art 92991 - INDICATIONS: FGR B [place] di twins [place] [facility] patient - EVALUATION (FETUS A): Num Of Fetuses: 2 Heart Rate(bpm): 148 Cardiac Activity: Regular rhythm Lie: Longitudinal Presentation: Cephalic Placenta: Posterior Amniotic Fluid DEANNA FV: Within normal limits Largest Pocket(cm) 4.7 Maternal Medicine Report Comment: Maternal LT - BIOPHYSICAL EVALUATION (FETUS A): Amniotic F.V: Within normal limits F. Tone: Observed F. Movement: Observed Score: 88 F. Breathing: Observed - BIOMETRY (FETUS A): BPD: 71.1 mm G.Age: 28w 4d 99 % OFD: 90.1 mm HC: 257.6 mm G.Age: 28w 0d 93 % AC: 222.4 mm G.Age: 26w 5d 71 % FL: 47.3 mm G.Age: 25w 6d 38 % LV: 5.08 mm CI: 78.9 % 70 - 86 FL/HC: 18.4 % 18.6 - 20.4 HC/AC: 1.16 1.04 - 1.22 FL/BPD: 66.5 % 71 - 87 FL/AC: 21.3 % 20 - 24 Est. FW: 957 gm 2 lb 2 oz 61 % FW Discordancy: 0 \ 43 % - GESTATIONAL AGE (FETUS A): Clinical DEWEY: 25w 5d DEWEY: 11/23/22 U/S Today: 27w 2d DEWEY: 11/12/22 Best: 25w 5d Det. By: Clinical DEWEY DEWEY: 11/23/22 - DOPPLER - VESSELS (FETUS A): Umbilical Artery S/D %tile RI %tile PI %tile PSV (cm/s) 2.64 18 0.62 18 0.91 19 75.2 - EVALUATION (FETUS B): Num Of Fetuses: 2 Heart Rate(bpm): 163 Cardiac Activity: Regular rhythm Lie: Longitudinal Presentation: Cephalic Placenta: Posterior Amniotic Fluid DEANNA FV: Within normal limits Largest Pocket(cm) 2.41 Comment: Maternal RT - BIOPHYSICAL EVALUATION (FETUS B): Amniotic F.V: Within normal limits F. Tone: Observed F. Movement: Observed Score: 06/12 F. Breathing: Observed - Maternal Medicine Report BIOMETRY (FETUS B): BPD: 64.1 mm G.Age: 25w 6d 48 % OFD: 85.2 mm HC: 238.1 mm G.Age: 25w 6d 31 % AC: 172.4 mm G.Age: 22w 1d < 1 % FL: 39.9 mm G.Age: 22w 6d < 1 % LV: 4.08 mm CI: 75.2 % 70 - 86 FL/HC: 16.8 % 18.6 - 20.4 HC/AC: 1.38 1.04 - 1.22 FL/BPD: 62.2 % 71 - 87 FL/AC: 23.1 % 20 - 24 Est. FW: 548 gm 1 lb 3 oz 13 % FW Discordancy: 43 % - GESTATIONAL AGE (FETUS B): Clinical DEWEY: 25w 5d DEWEY: 11/23/22 U/S Today: 24w 1d DEWEY: 12/04/22 Best: 25w 5d Det. By: Clinical DEWEY DEWEY: 11/23/22 - DOPPLER - VESSELS (FETUS B): Umbilical Artery S/D %tile RI %tile PI %tile PSV (cm/s) 4.16 85 0.76 83 1.29 86 37.45 - IMPRESSION: 1. Monochorionic dichorionic twin gestation at 25w 5d by clinically established DEWEY and previous scans performed at [facility] last growth performed on 08/03/22 Growth today Twin A 957g (previously 739g) and Twin B known FGR 548g (previously 445g) there is a 43% discordance, previously noted to be 39.7% 2. Discordant growth with known Twin B FGR and prior IAEDF now with forward flow and no AEDF 3. Normal UA Doppler assessment for both twins. 4. Normal BPP and amniotic fluid volume for both twins. No signs of TTTS and bladders easily visualized X 2 today 5. 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 Normal [facility] [facility] No Panel Informationon 08-15 Radiology Study observation (narrative) [facility] Work Phone: RADIOLOGY REPORTon 2 Ordered by an unspecified provider. [facility] US DOPPLER UMBILICAL A RTERYon 08-15-2022 Patient Name: ALAINA YODER Maternal Medicine ACCESSION EXAM DATE/TIME PROCEDURE ORDERING PROVIDER [id number] 08/15/2022 16:05 EDT [facility] US Biophy w/o MD EVERETTE, GUERO non-stress Reason For Exam ([facility] US Biophy w/o non-stress) Mo/Di, FGR Report - OBSTETRICS REPORT (Signed Final 08/15/2022 05:34 pm) - PATIENT INFO: ID #: [id number] : [birth year] (32 yrs) Name: ALAINA YODER Visit Date: 08/15/2022 04:03 pm - PERFORMED BY: Attending: Ty Hoffmann MD Performed By: Ander Elena Referred By: GUERO LOZANO Location: [facility] Visit Type: Outpatient - SERVICE(S) PROVIDED: [place] [address] [place] up 14948 BPP w/out NST 74378 BPP w/out NST 39935 US Doppler umbilical art 31796 US Doppler umbilical art 51843 - INDICATIONS: FGR B [place] di twins [place] [facility] patient - EVALUATION (FETUS A): Num Of Fetuses: 2 Heart Rate(bpm): 148 Cardiac Activity: Regular rhythm Lie: Longitudinal Presentation: Cephalic Placenta: Posterior Amniotic Fluid DEANNA FV: Within normal limits Largest Pocket(cm) 4.7 Maternal Medicine Report Comment: Maternal LT - BIOPHYSICAL EVALUATION (FETUS A): Amniotic F.V: Within normal limits F. Tone: Observed F. Movement: Observed Score: 8/8 F. Breathing: Observed - BIOMETRY (FETUS A): BPD: 71.1 mm G.Age: 28w 4d 99 % OFD: 90.1 mm HC: 257.6 mm G.Age: 28w 0d 93 % AC: 222.4 mm G.Age: 26w 5d 71 % FL: 47.3 mm G.Age: 25w 6d 38 % LV: 5.08 mm CI: 78.9 % 70 - 86 FL/HC: 18.4 % 18.6 - 20.4 HC/AC: 1.16 1.04 - 1.22 FL/BPD: 66.5 % 71 - 87 FL/AC: 21.3 % 20 - 24 Est. FW: 957 gm 2 lb 2 oz 61 % FW Discordancy: 0 \ 43 % - GESTATIONAL AGE (FETUS A): Clinical DEWEY: 25w 5d DEWEY: 11/23/22 U/S Today: 27w 2d DEWEY: 11/12/22 Best: 25w 5d Det. By: Clinical DEWEY DEWEY: 11/23/22 - DOPPLER - VESSELS (FETUS A): Umbilical Artery S/D %tile RI %tile PI %tile PSV (cm/s) 2.64 18 0.62 18 0.91 19 75.2 - EVALUATION (FETUS B): Num Of Fetuses: 2 Heart Rate(bpm): 163 Cardiac Activity: Regular rhythm Lie: Longitudinal Presentation: Cephalic Placenta: Posterior Amniotic Fluid DEANNA FV: Within normal limits Largest Pocket(cm) 2.41 Comment: Maternal RT - BIOPHYSICAL EVALUATION (FETUS B): Amniotic F.V: Within normal limits F. Tone: Observed F. Movement: Observed Score: 06/12 F. Breathing: Observed - Maternal Medicine Report BIOMETRY (FETUS B): BPD: 64.1 mm G.Age: 25w 6d 48 % OFD: 85.2 mm HC: 238.1 mm G.Age: 25w 6d 31 % AC: 172.4 mm G.Age: 22w 1d < 1 % FL: 39.9 mm G.Age: 22w 6d < 1 % LV: 4.08 mm CI: 75.2 % 70 - 86 FL/HC: 16.8 % 18.6 - 20.4 HC/AC: 1.38 1.04 - 1.22 F (more content not included)... [facility] Work Phone: Ty Hoffmann MD - 08/15/2022 Patient Name: ALAINA YODER Maternal Medicine ACCESSION EXAM DATE/TIME PROCEDURE ORDERING PROVIDER [id number] 08/15/2022 16:05 EDT [facility] US Biophy w/o MD LOZANO BRIAN non-stress Reason For Exam ([facility] US Biophy w/o non-stress) Mo/Di, FGR Report - OBSTETRICS REPORT (Signed Final 08/15/2022 05:34 pm) - PATIENT INFO: ID #: [id number] : [birth year] (32 yrs) Name: ALAINA YODER Visit Date: 08/15/2022 04:03 pm - PERFORMED BY: Attending: Ty Hoffmann MD Performed By: Ander Elena Referred By: GUERO LOZANO [facility] Visit Type: Outpatient - SERVICE(S) PROVIDED: [place] [address] US Follow up 77787 BPP w/out NST 98897 BPP w/out NST 22631 US Doppler umbilical art 56761 US Doppler umbilical art 06243 - INDICATIONS: FGR B [place] di twins [place] [facility] - EVALUATION (FETUS A): Num Of Fetuses: 2 Heart Rate(bpm): 148 Cardiac Activity: Regular rhythm Lie: Longitudinal Presentation: Cephalic Placenta: Posterior Amniotic Fluid DEANNA FV: Within normal limits Largest Pocket(cm) 4.7 Maternal Medicine Report Comment: Maternal LT - BIOPHYSICAL EVALUATION (FETUS A): Amniotic F.V: Within normal limits F. Tone: Observed F. Movement: Observed Score: 06/12 F. Breathing: Observed - BIOMETRY (FETUS A): BPD: 71.1 mm G.Age: 28w 4d 99 % OFD: 90.1 mm HC: 257.6 mm G.Age: 28w 0d 93 % AC: 222.4 mm G.Age: 26w 5d 71 % FL: 47.3 mm G.Age: 25w 6d 38 % LV: 5.08 mm CI: 78.9 % 70 - 86 FL/HC: 18.4 % 18.6 - 20.4 HC/AC: 1.16 1.04 - 1.22 FL/BPD: 66.5 % 71 - 87 FL/AC: 21.3 % 20 - 24 Est. FW: 957 gm 2 lb 2 oz 61 % FW Discordancy: 0 \ 43 % - GESTATIONAL AGE (FETUS A): Clinical DEWEY: 25w 5d DEWEY: 11/23/22 U/S Today: 27w 2d DEWEY: 11/12/22 Best: 25w 5d Det. By: Clinical DEWEY DEWEY: 11/23/22 - DOPPLER - VESSELS (FETUS A): Umbilical Artery S/D %tile RI %tile PI %tile PSV (cm/s) 2.64 18 0.62 18 0.91 19 75.2 - EVALUATION (FETUS B): Num Of Fetuses: 2 Heart Rate(bpm): 163 Cardiac Activity: Regular rhythm Lie: Longitudinal Presentation: Cephalic Placenta: Posterior Amniotic Fluid DEANNA FV: Within normal limits Largest Pocket(cm) 2.41 Comment: Maternal RT - BIOPHYSICAL EVALUATION (FETUS B): Amniotic F.V: Within normal limits F. Tone: Observed F. Movement: Observed Score: 8/8 F. Breathing: Observed - Maternal Medicine Report BIOMETRY (FETUS B): BPD: 64.1 mm G.Age: 25w 6d 48 % OFD: 85.2 mm HC: 238.1 mm G.Age: 25w 6d 31 % AC: 172.4 mm G.Age: 22w 1d < 1 % FL: 39.9 mm G.Age: 22w 6d < 1 % LV: 4.08 mm CI: 75.2 % 70 - 86 FL/HC: 16.8 % 18.6 - 20.4 HC/AC: 1.38 1.04 - 1.22 FL/BPD: 62.2 % 71 - 87 FL/AC: 23.1 % 20 - 24 Est. FW: 548 gm 1 lb 3 oz 13 % FW Discordancy: 43 % - GESTATIONAL AGE (FETUS B): Clinical DEWEY: 25w 5d DEWEY: 11/23/22 U/S Today: 24w 1d DEWEY: 12/04/22 Best: 25w 5d Det. By: Clinical DEWEY DEWEY: 11/23/22 - DOPPLER - VESSELS (FETUS B): Umbilical Artery S/D %tile RI %tile PI %tile PSV (cm/s) 4.16 85 0.76 83 1.29 86 37.45 - IMPRESSION: 1. Monochorionic dichorionic twin gestation at 25w 5d by clinically established DEWEY and previous scans performed at [facility] last growth performed on 08/03/22 Growth today Twin A 957g (previously 739g) and Twin B known FGR 548g (previously 445g) there is a 43% discordance, previously noted to be 39.7% 2. Discordant growth with known Twin B FGR and prior IAEDF now with forward flow and no AEDF 3. Normal UA Doppler assessment for both twins. 4. Normal BPP and amniotic fluid volume for (more content not included)... [employer] Work Phone: [employer] Work Phone: US BIOPHYSICAL PROFILE WO NON STRESS TESTINGon 08-15-2022 Patient Name: ALAINA YODER Maternal Medicine ACCESSION EXAM DATE/TIME PROCEDURE ORDERING PROVIDER [id number] 08/15/2022 16:05 EDT [facility] US Biophy w/o MD EVERETTE, GUERO noncarlos Reason For Exam ([facility] US Biophy w/o non-stress) Mo/Di, FGR Report - OBSTETRICS REPORT (Signed Final 08/15/2022 05:34 pm) - PATIENT INFO: ID #: [id number] : [birth year] (32 yrs) Name: ALAINA YODER Visit Date: 08/15/2022 04:03 pm - PERFORMED BY: Attending: Ty Hoffmann MD Performed By: Ander Elena Referred By: GUERO LOZANO Location: [facility] Visit Type: Outpatient - SERVICE(S) PROVIDED: [place] [address] [place] [address]11 BPP w/out NST 18122 BPP w/out NST 82970 US Doppler umbilical art 13248 US Doppler umbilical art 03676 - INDICATIONS: FGR B [place] di twins [facility] - EVALUATION (FETUS A): Num Of Fetuses: 2 Heart Rate(bpm): 148 Cardiac Activity: Regular rhythm Lie: Longitudinal Presentation: Cephalic Placenta: Posterior Amniotic Fluid DEANNA FV: Within normal limits Largest Pocket(cm) 4.7 Maternal Medicine Report Comment: Maternal LT - BIOPHYSICAL EVALUATION (FETUS A): Amniotic F.V: Within normal limits F. Tone: Observed F. Movement: Observed Score: 8/8 F. Breathing: Observed - BIOMETRY (FETUS A): BPD: 71.1 mm G.Age: 28w 4d 99 % OFD: 90.1 mm HC: 257.6 mm G.Age: 28w 0d 93 % AC: 222.4 mm G.Age: 26w 5d 71 % FL: 47.3 mm G.Age: 25w 6d 38 % LV: 5.08 mm CI: 78.9 % 70 - 86 FL/HC: 18.4 % 18.6 - 20.4 HC/AC: 1.16 1.04 - 1.22 FL/BPD: 66.5 % 71 - 87 FL/AC: 21.3 % 20 - 24 Est. FW: 957 gm 2 lb 2 oz 61 % FW Discordancy: 0 \ 43 % - GESTATIONAL AGE (FETUS A): Clinical DEWEY: 25w 5d DEWEY: 11/23/22 U/S Today: 27w 2d DEWEY: 11/12/22 Best: 25w 5d Det. By: Clinical DEWEY DEWEY: 11/23/22 - DOPPLER - VESSELS (FETUS A): Umbilical Artery S/D %tile RI %tile PI %tile PSV (cm/s) 2.64 18 0.62 18 0.91 19 75.2 - EVALUATION (FETUS B): Num Of Fetuses: 2 Heart Rate(bpm): 163 Cardiac Activity: Regular rhythm Lie: Longitudinal Presentation: Cephalic Placenta: Posterior Amniotic Fluid DEANNA FV: Within normal limits Largest Pocket(cm) 2.41 Comment: Maternal RT - BIOPHYSICAL EVALUATION (FETUS B): Amniotic F.V: Within normal limits F. Tone: Observed F. Movement: Observed Score: 8 F. Breathing: Observed - Maternal Medicine Report BIOMETRY (FETUS B): BPD: 64.1 mm G.Age: 25w 6d 48 % OFD: 85.2 mm HC: 238.1 mm G.Age: 25w 6d 31 % AC: 172.4 mm G.Age: 22w 1d < 1 % FL: 39.9 mm G.Age: 22w 6d < 1 % LV: 4.08 mm CI: 75.2 % 70 - 86 FL/HC: 16.8 % 18.6 - 20.4 HC/AC: 1.38 1.04 - 1.22 F (more content not included)... [employer] Work Phone: Ty Hoffmann MD - 08/15/2022 Patient Name: ALAINA YODER Maternal Medicine ACCESSION EXAM DATE/TIME PROCEDURE ORDERING PROVIDER [id number] 08/15/2022 16:05 EDT [facility] US Biophy w/o MD LOZANO BRIAN non-stress Reason For Exam ([facility] US Biophy w/o non-stress) Mo/Di, FGR Report - OBSTETRICS REPORT (Signed Final 08/15/2022 05:34 pm) - PATIENT INFO: ID #: [id number] : [birth year] (32 yrs) Name: ALAINA YODER Visit Date: 08/15/2022 04:03 pm - PERFORMED BY: Attending: Ty Hoffmann MD Performed By: Ander Elena Referred By: GUERO LOZANO Location: [facility] Visit Type: Outpatient - SERVICE(S) PROVIDED: [place] 10436 [place] [address]30 BPP w/out NST 54111 BPP w/out NST 32860 US Doppler umbilical art 07073 US Doppler umbilical art 53474 - INDICATIONS: FGR B [place] di twins [place] [facility] patient - EVALUATION (FETUS A): Num Of Fetuses: 2 Heart Rate(bpm): 148 Cardiac Activity: Regular rhythm Lie: Longitudinal Presentation: Cephalic Placenta: Posterior Amniotic Fluid DEANNA FV: Within normal limits Largest Pocket(cm) 4.7 Maternal Medicine Report Comment: Maternal LT - BIOPHYSICAL EVALUATION (FETUS A): Amniotic F.V: Within normal limits F. Tone: Observed F. Movement: Observed Score: 06/12 F. Breathing: Observed - BIOMETRY (FETUS A): BPD: 71.1 mm G.Age: 28w 4d 99 % OFD: 90.1 mm HC: 257.6 mm G.Age: 28w 0d 93 % AC: 222.4 mm G.Age: 26w 5d 71 % FL: 47.3 mm G.Age: 25w 6d 38 % LV: 5.08 mm CI: 78.9 % 70 - 86 FL/HC: 18.4 % 18.6 - 20.4 HC/AC: 1.16 1.04 - 1.22 FL/BPD: 66.5 % 71 - 87 FL/AC: 21.3 % 20 - 24 Est. FW: 957 gm 2 lb 2 oz 61 % FW Discordancy: 0 \ 43 % - GESTATIONAL AGE (FETUS A): Clinical DEWEY: 25w 5d DEWEY: 11/23/22 U/S Today: 27w 2d DEWEY: 11/12/22 Best: 25w 5d Det. By: Clinical DEWEY DEWEY: 11/23/22 - DOPPLER - VESSELS (FETUS A): Umbilical Artery S/D %tile RI %tile PI %tile PSV (cm/s) 2.64 18 0.62 18 0.91 19 75.2 - EVALUATION (FETUS B): Num Of Fetuses: 2 Heart Rate(bpm): 163 Cardiac Activity: Regular rhythm Lie: Longitudinal Presentation: Cephalic Placenta: Posterior Amniotic Fluid DEANNA FV: Within normal limits Largest Pocket(cm) 2.41 Comment: Maternal RT - BIOPHYSICAL EVALUATION (FETUS B): Amniotic F.V: Within normal limits F. Tone: Observed F. Movement: Observed Score: 8/8 F. Breathing: Observed - Maternal Medicine Report BIOMETRY (FETUS B): BPD: 64.1 mm G.Age: 25w 6d 48 % OFD: 85.2 mm HC: 238.1 mm G.Age: 25w 6d 31 % AC: 172.4 mm G.Age: 22w 1d < 1 % FL: 39.9 mm G.Age: 22w 6d < 1 % LV: 4.08 mm CI: 75.2 % 70 - 86 FL/HC: 16.8 % 18.6 - 20.4 HC/AC: 1.38 1.04 - 1.22 FL/BPD: 62.2 % 71 - 87 FL/AC: 23.1 % 20 - 24 Est. FW: 548 gm 1 lb 3 oz 13 % FW Discordancy: 43 % - GESTATIONAL AGE (FETUS B): Clinical DEWEY: 25w 5d DEWEY: 11/23/22 U/S Today: 24w 1d DEWEY: 12/04/22 Best: 25w 5d Det. By: Clinical DEWEY DEWEY: 11/23/22 - DOPPLER - VESSELS (FETUS B): Umbilical Artery S/D %tile RI %tile PI %tile PSV (cm/s) 4.16 85 0.76 83 1.29 86 37.45 - IMPRESSION: 1. Monochorionic dichorionic twin gestation at 25w 5d by clinically established DEWEY and previous scans performed at [facility] last growth performed on 08/03/22 Growth today Twin A 957g (previously 739g) and Twin B known FGR 548g (previously 445g) there is a 43% discordance, previously noted to be 39.7% 2. Discordant growth with known Twin B FGR and prior IAEDF now with forward flow and no AEDF 3. Normal UA Doppler assessment for both twins. 4. Normal BPP and amniotic fluid volume for (more content not included)... [facility] Work Phone: Patient Name: ALAINA YODER Maternal Medicine ACCESSION EXAM DATE/TIME PROCEDURE ORDERING PROVIDER [id number] 08/15/2022 16:05 EDT [facility] US Biophy w/o MD LOZANO BRIAN non-stress Reason For Exam ([facility] US Biophy w/o non-stress) [place]/di twins iugr B Report - OBSTETRICS REPORT (Signed Final 08/15/2022 05:34 pm) - PATIENT INFO: ID #: [id number] : [birth year] (32 yrs) Name: ALAINA YODER Visit Date: 08/15/2022 04:03 pm - PERFORMED BY: Attending: Ty Hoffmann MD Performed By: Ander Elena Referred By: GUERO LOZANO Location: [facility] Visit Type: Outpatient - SERVICE(S) PROVIDED: [place] [id number] [place] [address] BPP w/out NST 43114 BPP w/out NST 25431 US Doppler umbilical art 10356 US Doppler umbilical art 92579 - INDICATIONS: FGR B [place] di twins Tory hsiehs patient - EVALUATION (FETUS A): Num Of Fetuses: 2 Heart Rate(bpm): 148 Cardiac Activity: Regular rhythm Lie: Longitudinal Presentation: Cephalic Placenta: Posterior Amniotic Fluid DEANNA FV: Within normal limits Largest Pocket(cm) 4.7 Maternal Medicine Report Comment: Maternal LT - BIOPHYSICAL EVALUATION (FETUS A): Amniotic F.V: Within normal limits F. Tone: Observed F. Movement: Observed Score: 8/8 F. Breathing: Observed - BIOMETRY (FETUS A): BPD: 71.1 mm G.Age: 28w 4d 99 % OFD: 90.1 mm HC: 257.6 mm G.Age: 28w 0d 93 % AC: 222.4 mm G.Age: 26w 5d 71 % FL: 47.3 mm G.Age: 25w 6d 38 % LV: 5.08 mm CI: 78.9 % 70 - 86 FL/HC: 18.4 % 18.6 - 20.4 HC/AC: 1.16 1.04 - 1.22 FL/BPD: 66.5 % 71 - 87 FL/AC: 21.3 % 20 - 24 Est. FW: 957 gm 2 lb 2 oz 61 % FW Discordancy: 0 \ 43 % - GESTATIONAL AGE (FETUS A): Clinical DEWEY: 25w 5d DEWEY: 11/23/22 U/S Today: 27w 2d DEWEY: 11/12/22 Best: 25w 5d Det. By: Clinical DEWEY DEWEY: 11/23/22 - DOPPLER - VESSELS (FETUS A): Umbilical Artery S/D %tile RI %tile PI %tile PSV (cm/s) 2.64 18 0.62 18 0.91 19 75.2 - EVALUATION (FETUS B): Num Of Fetuses: 2 Heart Rate(bpm): 163 Cardiac Activity: Regular rhythm Lie: Longitudinal Presentation: Cephalic Placenta: Posterior Amniotic Fluid DEANNA FV: Within normal limits Largest Pocket(cm) 2.41 Comment: Maternal RT - BIOPHYSICAL EVALUATION (FETUS B): Amniotic F.V: Within normal limits F. Tone: Observed F. Movement: Observed Score: 88 F. Breathing: Observed - Maternal Medicine Report BIOMETRY (FETUS B): BPD: 64.1 mm G.Age: 25w 6d 48 % OFD: 85.2 mm HC: 238.1 mm G.Age: 25w 6d 31 % AC: 172.4 mm G.Age: 22w 1d < 1 % FL: 39.9 mm G.Age: 22w 6d < 1 % LV: 4.08 mm CI: 75.2 % 70 - 86 FL/HC: 16.8 % 18.6 - 20.4 HC/AC: 1.38 1.04 (more content not included)... [facility] Ty Breaux MD - 08/15/2022 Patient Name: ALAINA YODER Maternal Medicine ACCESSION EXAM DATE/TIME PROCEDURE ORDERING PROVIDER [id number] 08/15/2022 16:05 EDT [facility] US Biophy w/o MD LOZANO BRIAN non-stress Reason For Exam ([facility] US Biophy w/o non-stress) [place]/di twins iugr B Report - OBSTETRICS REPORT (Signed Final 08/15/2022 05:34 pm) - PATIENT INFO: ID #: [id number] : [birth year] (32 yrs) Name: ALAINA YODER Visit Date: 08/15/2022 04:03 pm - PERFORMED BY: Attending: Ty Hoffmann MD Performed By: Ander Elena Referred By: GUERO LOZANO Location: [facility] Visit Type: Outpatient - SERVICE(S) PROVIDED: [place] [id number] [place] [address] BPP w/out NST 63869 BPP w/out NST 21231 US Doppler umbilical art 23004 US Doppler umbilical art 33598 - INDICATIONS: FGR B [place] di twins [place] [facility] patient - EVALUATION (FETUS A): Num Of Fetuses: 2 Heart Rate(bpm): 148 Cardiac Activity: Regular rhythm Lie: Longitudinal Presentation: Cephalic Placenta: Posterior Amniotic Fluid DEANNA FV: Within normal limits Largest Pocket(cm) 4.7 Maternal Medicine Report Comment: Maternal LT - BIOPHYSICAL EVALUATION (FETUS A): Amniotic F.V: Within normal limits F. Tone: Observed F. Movement: Observed Score: 06/12 F. Breathing: Observed - BIOMETRY (FETUS A): BPD: 71.1 mm G.Age: 28w 4d 99 % OFD: 90.1 mm HC: 257.6 mm G.Age: 28w 0d 93 % AC: 222.4 mm G.Age: 26w 5d 71 % FL: 47.3 mm G.Age: 25w 6d 38 % LV: 5.08 mm CI: 78.9 % 70 - 86 FL/HC: 18.4 % 18.6 - 20.4 HC/AC: 1.16 1.04 - 1.22 FL/BPD: 66.5 % 71 - 87 FL/AC: 21.3 % 20 - 24 Est. FW: 957 gm 2 lb 2 oz 61 % FW Discordancy: 0 \ 43 % - GESTATIONAL AGE (FETUS A): Clinical DEWEY: 25w 5d DEWEY: 11/23/22 U/S Today: 27w 2d DEWEY: 11/12/22 Best: 25w 5d Det. By: Clinical DEWEY DEWEY: 11/23/22 - DOPPLER - VESSELS (FETUS A): Umbilical Artery S/D %tile RI %tile PI %tile PSV (cm/s) 2.64 18 0.62 18 0.91 19 75.2 - EVALUATION (FETUS B): Num Of Fetuses: 2 Heart Rate(bpm): 163 Cardiac Activity: Regular rhythm Lie: Longitudinal Presentation: Cephalic Placenta: Posterior Amniotic Fluid DEANNA FV: Within normal limits Largest Pocket(cm) 2.41 Comment: Maternal RT - BIOPHYSICAL EVALUATION (FETUS B): Amniotic F.V: Within normal limits F. Tone: Observed F. Movement: Observed Score: 8/8 F. Breathing: Observed - Maternal Medicine Report BIOMETRY (FETUS B): BPD: 64.1 mm G.Age: 25w 6d 48 % OFD: 85.2 mm HC: 238.1 mm G.Age: 25w 6d 31 % AC: 172.4 mm G.Age: 22w 1d < 1 % FL: 39.9 mm G.Age: 22w 6d < 1 % LV: 4.08 mm CI: 75.2 % 70 - 86 FL/HC: 16.8 % 18.6 - 20.4 HC/AC: 1.38 1.04 - 1.22 FL/BPD: 62.2 % 71 - 87 FL/AC: 23.1 % 20 - 24 Est. FW: 548 gm 1 lb 3 oz 13 % FW Discordancy: 43 % - GESTATIONAL AGE (FETUS B): Clinical DEWEY: 25w 5d DEWEY: 11/23/22 U/S Today: 24w 1d DEWEY: 12/04/22 Best: 25w 5d Det. By: Clinical DEWEY DEWEY: 11/23/22 - DOPPLER - VESSELS (FETUS B): Umbilical Artery S/D %tile RI %tile PI %tile PSV (cm/s) 4.16 85 0.76 83 1.29 86 37.45 - IMPRESSION: 1. Monochorionic dichorionic twin gestation at 25w 5d by clinically established DEWEY and previous scans performed at [facility] last growth performed on 08/03/22 Growth today Twin A 957g (previously 739g) and Twin B known FGR 548g (previously 445g) there is a 43% discordance, previously noted to be 39.7% 2. Discordant growth with known Twin B FGR and prior IAEDF now with forward flow and no AEDF 3. Normal UA Doppler assessment for both twins. 4. Normal BPP and amniotic fluid v (more content not included)... [employer] Work Phone: [employer] Work Phone: US BIOPHYSICAL PROFILE WO NON STRESS TESTINGOrdered By: Ty Hoffmann on 08-15-2022 [employer] Work Phone: US OB FOLLOW UP TRANSABDOMIN AL APPROACHon 08-15-2022 Patient Name: ALAINA YODER Maternal Medicine ACCESSION EXAM DATE/TIME PROCEDURE ORDERING PROVIDER [id number] 08/15/2022 16:05 EDT [facility] US Biophy w/o MD LOZANO BRIAN non-stress Reason For Exam ([facility] US Biophy w/o non-stress) Mo/Di, FGR Report - OBSTETRICS REPORT (Signed Final 08/15/2022 05:34 pm) - PATIENT INFO: ID #: [id number] : [birth year] (32 yrs) Name: ALAINA YODER Visit Date: 08/15/2022 04:03 pm - PERFORMED BY: Attending: Ty Hoffmann MD Performed By: Ander Elena Referred By: GUERO LOZANO Location: [facility] Visit Type: Outpatient - SERVICE(S) PROVIDED: [place] up [id number] [place] 22527 BPP w/out NST 70499 BPP w/out NST 03448 US Doppler umbilical art 38878 US Doppler umbilical art 83679 - INDICATIONS: FGR B [place] di twins [place] [facility] patient - EVALUATION (FETUS A): Num Of Fetuses: 2 Heart Rate(bpm): 148 Cardiac Activity: Regular rhythm Lie: Longitudinal Presentation: Cephalic Placenta: Posterior Amniotic Fluid DEANNA FV: Within normal limits Largest Pocket(cm) 4.7 Maternal Medicine Report Comment: Maternal LT - BIOPHYSICAL EVALUATION (FETUS A): Amniotic F.V: Within normal limits F. Tone: Observed F. Movement: Observed Score: 8/8 F. Breathing: Observed - BIOMETRY (FETUS A): BPD: 71.1 mm G.Age: 28w 4d 99 % OFD: 90.1 mm HC: 257.6 mm G.Age: 28w 0d 93 % AC: 222.4 mm G.Age: 26w 5d 71 % FL: 47.3 mm G.Age: 25w 6d 38 % LV: 5.08 mm CI: 78.9 % 70 - 86 FL/HC: 18.4 % 18.6 - 20.4 HC/AC: 1.16 1.04 - 1.22 FL/BPD: 66.5 % 71 - 87 FL/AC: 21.3 % 20 - 24 Est. FW: 957 gm 2 lb 2 oz 61 % FW Discordancy: 0 \ 43 % - GESTATIONAL AGE (FETUS A): Clinical DEWEY: 25w 5d DEWEY: 11/23/22 U/S Today: 27w 2d DEWEY: 11/12/22 Best: 25w 5d Det. By: Clinical DEWEY DEWEY: 11/23/22 - DOPPLER - VESSELS (FETUS A): Umbilical Artery S/D %tile RI %tile PI %tile PSV (cm/s) 2.64 18 0.62 18 0.91 19 75.2 - EVALUATION (FETUS B): Num Of Fetuses: 2 Heart Rate(bpm): 163 Cardiac Activity: Regular rhythm Lie: Longitudinal Presentation: Cephalic Placenta: Posterior Amniotic Fluid DEANNA FV: Within normal limits Largest Pocket(cm) 2.41 Comment: Maternal RT - BIOPHYSICAL EVALUATION (FETUS B): Amniotic F.V: Within normal limits F. Tone: Observed F. Movement: Observed Score: 8/8 F. Breathing: Observed - Maternal Medicine Report BIOMETRY (FETUS B): BPD: 64.1 mm G.Age: 25w 6d 48 % OFD: 85.2 mm HC: 238.1 mm G.Age: 25w 6d 31 % AC: 172.4 mm G.Age: 22w 1d < 1 % FL: 39.9 mm G.Age: 22w 6d < 1 % LV: 4.08 mm CI: 75.2 % 70 - 86 FL/HC: 16.8 % 18.6 - 20.4 HC/AC: 1.38 1.04 - 1.22 F (more content not included)... [facility] Work Phone: Ty Hoffmann MD - 08/15/2022 Patient Name: ALAINA YODER Maternal Medicine ACCESSION EXAM DATE/TIME PROCEDURE ORDERING PROVIDER [id number] 08/15/2022 16:05 EDT [facility] [place] [place] EVERETTE, GUERO non-stress Reason For Exam ([facility] US Biophy w/o non-stress) Mo/Di, FGR Report - OBSTETRICS REPORT (Signed Final 08/15/2022 05:34 pm) - PATIENT INFO: ID #: [id number] : [birth year] (32 yrs) Name: ALAINA YODER Visit Date: 08/15/2022 04:03 pm - PERFORMED BY: Attending: Ty Hoffmann MD Performed By: Ander Elena Referred By: GUERO LOZANO Location: [facility] Visit Type: Outpatient - SERVICE(S) PROVIDED: [place] [id number] [place] up [address]61 BPP w/out NST 18416 BPP w/out NST 46239 US Doppler umbilical art 98737 US Doppler umbilical art 54009 - INDICATIONS: FGR B [place] di twins [facility] patient - EVALUATION (FETUS A): Num Of Fetuses: 2 Heart Rate(bpm): 148 Cardiac Activity: Regular rhythm Lie: Longitudinal Presentation: Cephalic Placenta: Posterior Amniotic Fluid DEANNA FV: Within normal limits Largest Pocket(cm) 4.7 Maternal Medicine Report Comment: Maternal LT - BIOPHYSICAL EVALUATION (FETUS A): Amniotic F.V: Within normal limits F. Tone: Observed F. Movement: Observed Score: 8/8 F. Breathing: Observed - BIOMETRY (FETUS A): BPD: 71.1 mm G.Age: 28w 4d 99 % OFD: 90.1 mm HC: 257.6 mm G.Age: 28w 0d 93 % AC: 222.4 mm G.Age: 26w 5d 71 % FL: 47.3 mm G.Age: 25w 6d 38 % LV: 5.08 mm CI: 78.9 % 70 - 86 FL/HC: 18.4 % 18.6 - 20.4 HC/AC: 1.16 1.04 - 1.22 FL/BPD: 66.5 % 71 - 87 FL/AC: 21.3 % 20 - 24 Est. FW: 957 gm 2 lb 2 oz 61 % FW Discordancy: 0 \ 43 % - GESTATIONAL AGE (FETUS A): Clinical DEWEY: 25w 5d DEWEY: 11/23/22 U/S Today: 27w 2d DEWEY: 11/12/22 Best: 25w 5d Det. By: Clinical DEWEY DEWEY: 11/23/22 - DOPPLER - VESSELS (FETUS A): Umbilical Artery S/D %tile RI %tile PI %tile PSV (cm/s) 2.64 18 0.62 18 0.91 19 75.2 - EVALUATION (FETUS B): Num Of Fetuses: 2 Heart Rate(bpm): 163 Cardiac Activity: Regular rhythm Lie: Longitudinal Presentation: Cephalic Placenta: Posterior Amniotic Fluid DEANNA FV: Within normal limits Largest Pocket(cm) 2.41 Comment: Maternal RT - BIOPHYSICAL EVALUATION (FETUS B): Amniotic F.V: Within normal limits F. Tone: Observed F. Movement: Observed Score: 8/8 F. Breathing: Observed - Maternal Medicine Report BIOMETRY (FETUS B): BPD: 64.1 mm G.Age: 25w 6d 48 % OFD: 85.2 mm HC: 238.1 mm G.Age: 25w 6d 31 % AC: 172.4 mm G.Age: 22w 1d < 1 % FL: 39.9 mm G.Age: 22w 6d < 1 % LV: 4.08 mm CI: 75.2 % 70 - 86 FL/HC: 16.8 % 18.6 - 20.4 HC/AC: 1.38 1.04 - 1.22 FL/BPD: 62.2 % 71 - 87 FL/AC: 23.1 % 20 - 24 Est. FW: 548 gm 1 lb 3 oz 13 % FW Discordancy: 43 % - GESTATIONAL AGE (FETUS B): Clinical DEWEY: 25w 5d DEWEY: 11/23/22 U/S Today: 24w 1d DEWEY: 12/04/22 Best: 25w 5d Det. By: Clinical DEWEY DEWEY: 11/23/22 - DOPPLER - VESSELS (FETUS B): Umbilical Artery S/D %tile RI %tile PI %tile PSV (cm/s) 4.16 85 0.76 83 1.29 86 37.45 - IMPRESSION: 1. Monochorionic dichorionic twin gestation at 25w 5d by clinically established DEWEY and previous scans performed at [facility] last growth performed on 08/03/22 Growth today Twin A 957g (previously 739g) and Twin B known FGR 548g (previously 445g) there is a 43% discordance, previously noted to be 39.7% 2. Discordant growth with known Twin B FGR and prior IAEDF now with forward flow and no AEDF 3. Normal UA Doppler assessment for both twins. 4. Normal BPP and amniotic fluid volume for (more content not included)... [employer] Work Phone: [employer] Work Phone: Patient Name: ALAINA YODER Maternal Medicine ACCESSION EXAM DATE/TIME PROCEDURE ORDERING PROVIDER [id number] 08/15/2022 16:05 EDT [facility] US Biophy w/o MD LOZANO BRIAN non-stress Reason For Exam ([facility] US Biophy w/o non-stress) [place]/di twins, FGR B Report - OBSTETRICS REPORT (Signed Final 08/15/2022 05:34 pm) - PATIENT INFO: ID #: [id number] : [birth year] (32 yrs) Name: ALAINA YODER Visit Date: 08/15/2022 04:03 pm - PERFORMED BY: Attending: Ty Hoffmann MD Performed By: Ander Elena Referred By: GUERO LOZANO Location: [facility] Visit Type: Outpatient - SERVICE(S) PROVIDED: [place] [id number] [place] [address] BPP w/out NST 00668 BPP w/out NST 15531 US Doppler umbilical art 93209 US Doppler umbilical art 08642 - INDICATIONS: FGR B [place] di twins [place] [facility] patient - EVALUATION (FETUS A): Num Of Fetuses: 2 Heart Rate(bpm): 148 Cardiac Activity: Regular rhythm Lie: Longitudinal Presentation: Cephalic Placenta: Posterior Amniotic Fluid DEANNA FV: Within normal limits Largest Pocket(cm) 4.7 Maternal Medicine Report Comment: Maternal LT - BIOPHYSICAL EVALUATION (FETUS A): Amniotic F.V: Within normal limits F. Tone: Observed F. Movement: Observed Score: 06/12 F. Breathing: Observed - BIOMETRY (FETUS A): BPD: 71.1 mm G.Age: 28w 4d 99 % OFD: 90.1 mm HC: 257.6 mm G.Age: 28w 0d 93 % AC: 222.4 mm G.Age: 26w 5d 71 % FL: 47.3 mm G.Age: 25w 6d 38 % LV: 5.08 mm CI: 78.9 % 70 - 86 FL/HC: 18.4 % 18.6 - 20.4 HC/AC: 1.16 1.04 - 1.22 FL/BPD: 66.5 % 71 - 87 FL/AC: 21.3 % 20 - 24 Est. FW: 957 gm 2 lb 2 oz 61 % FW Discordancy: 0 \ 43 % - GESTATIONAL AGE (FETUS A): Clinical DEWEY: 25w 5d DEWEY: 11/23/22 U/S Today: 27w 2d DEWEY: 11/12/22 Best: 25w 5d Det. By: Clinical DEWEY DEWEY: 11/23/22 - DOPPLER - VESSELS (FETUS A): Umbilical Artery S/D %tile RI %tile PI %tile PSV (cm/s) 2.64 18 0.62 18 0.91 19 75.2 - EVALUATION (FETUS B): Num Of Fetuses: 2 Heart Rate(bpm): 163 Cardiac Activity: Regular rhythm Lie: Longitudinal Presentation: Cephalic Placenta: Posterior Amniotic Fluid DEANNA FV: Within normal limits Largest Pocket(cm) 2.41 Comment: Maternal RT - BIOPHYSICAL EVALUATION (FETUS B): Amniotic F.V: Within normal limits F. Tone: Observed F. Movement: Observed Score: 8/8 F. Breathing: Observed - Maternal Medicine Report BIOMETRY (FETUS B): BPD: 64.1 mm G.Age: 25w 6d 48 % OFD: 85.2 mm HC: 238.1 mm G.Age: 25w 6d 31 % AC: 172.4 mm G.Age: 22w 1d < 1 % FL: 39.9 mm G.Age: 22w 6d < 1 % LV: 4.08 mm CI: 75.2 % 70 - 86 FL/HC: 16.8 % 18.6 - 20.4 HC/AC: 1.38 1.04 (more content not included)... Ty Castillo MD - 08/15/2022 Patient Name: ALAINA YODER Maternal Medicine ACCESSION EXAM DATE/TIME PROCEDURE ORDERING PROVIDER [id number] 08/15/2022 16:05 EDT [facility] US Biophy w/o MD EVERETTE, GUERO non-ana Reason For Exam ([facility] US Biophy w/o non-stress) [place]/di twins, FGR B Report - OBSTETRICS REPORT (Signed Final 08/15/2022 05:34 pm) - PATIENT INFO: ID #: [id number] : [birth year] (32 yrs) Name: ALAINA YODER Visit Date: 08/15/2022 04:03 pm - PERFORMED BY: Attending: Ty Hoffmann MD Performed By: Ander Elena Referred By: GUERO LOZANO Location: [facility] Visit Type: Outpatient - SERVICE(S) PROVIDED: [place] [address] [place] 52587 BPP w/out NST 65067 BPP w/out NST 25786 US Doppler umbilical art 60418 US Doppler umbilical art 44534 - INDICATIONS: FGR B [place] di twins [place] [facility] patient - EVALUATION (FETUS A): Num Of Fetuses: 2 Heart Rate(bpm): 148 Cardiac Activity: Regular rhythm Lie: Longitudinal Presentation: Cephalic Placenta: Posterior Amniotic Fluid DEANNA FV: Within normal limits Largest Pocket(cm) 4.7 Maternal Medicine Report Comment: Maternal LT - BIOPHYSICAL EVALUATION (FETUS A): Amniotic F.V: Within normal limits F. Tone: Observed F. Movement: Observed Score: 8/8 F. Breathing: Observed - BIOMETRY (FETUS A): BPD: 71.1 mm G.Age: 28w 4d 99 % OFD: 90.1 mm HC: 257.6 mm G.Age: 28w 0d 93 % AC: 222.4 mm G.Age: 26w 5d 71 % FL: 47.3 mm G.Age: 25w 6d 38 % LV: 5.08 mm CI: 78.9 % 70 - 86 FL/HC: 18.4 % 18.6 - 20.4 HC/AC: 1.16 1.04 - 1.22 FL/BPD: 66.5 % 71 - 87 FL/AC: 21.3 % 20 - 24 Est. FW: 957 gm 2 lb 2 oz 61 % FW Discordancy: 0 \ 43 % - GESTATIONAL AGE (FETUS A): Clinical DEWEY: 25w 5d DEWEY: 11/23/22 U/S Today: 27w 2d DEWEY: 11/12/22 Best: 25w 5d Det. By: Clinical DEWEY DEWEY: 11/23/22 - DOPPLER - VESSELS (FETUS A): Umbilical Artery S/D %tile RI %tile PI %tile PSV (cm/s) 2.64 18 0.62 18 0.91 19 75.2 - EVALUATION (FETUS B): Num Of Fetuses: 2 Heart Rate(bpm): 163 Cardiac Activity: Regular rhythm Lie: Longitudinal Presentation: Cephalic Placenta: Posterior Amniotic Fluid DEANNA FV: Within normal limits Largest Pocket(cm) 2.41 Comment: Maternal RT - BIOPHYSICAL EVALUATION (FETUS B): Amniotic F.V: Within normal limits F. Tone: Observed F. Movement: Observed Score: 06/12 F. Breathing: Observed - Maternal Medicine Report BIOMETRY (FETUS B): BPD: 64.1 mm G.Age: 25w 6d 48 % OFD: 85.2 mm HC: 238.1 mm G.Age: 25w 6d 31 % AC: 172.4 mm G.Age: 22w 1d < 1 % FL: 39.9 mm G.Age: 22w 6d < 1 % LV: 4.08 mm CI: 75.2 % 70 - 86 FL/HC: 16.8 % 18.6 - 20.4 HC/AC: 1.38 1.04 - 1.22 FL/BPD: 62.2 % 71 - 87 FL/AC: 23.1 % 20 - 24 Est. FW: 548 gm 1 lb 3 oz 13 % FW Discordancy: 43 % - GESTATIONAL AGE (FETUS B): Clinical DEWEY: 25w 5d DEWEY: 11/23/22 U/S Today: 24w 1d DEWEY: 12/04/22 Best: 25w 5d Det. By: Clinical DEWEY DEWEY: 11/23/22 - DOPPLER - VESSELS (FETUS B): Umbilical Artery S/D %tile RI %tile PI %tile PSV (cm/s) 4.16 85 0.76 83 1.29 86 37.45 - IMPRESSION: 1. Monochorionic dichorionic twin gestation at 25w 5d by clinically established DEWEY and previous scans performed at [facility] last growth performed on 08/03/22 Growth today Twin A 957g (previously 739g) and Twin B known FGR 548g (previously 445g) there is a 43% discordance, previously noted to be 39.7% 2. Discordant growth with known Twin B FGR and prior IAEDF now with forward flow and no AEDF 3. Normal UA Doppler assessment for both twins. 4. Normal BPP and amniotic fluid v (more content not included)... [employer] Work Phone: [employer] Work Phone: Progress Noteon 08-03-2022 Manager State Authentication Interface Message Text MFM I discussed the findings on the phone with and patient today as they are a remote scan in [place] 1. Monochorionic diamniotic twin gestation at 24w 0d by clinical DEWEY. Twin A: biometry is consistent with 24 0/7 wks with estimated weight of 739 g. overall growth is 60th with AC at the 78th Twin B: There continues to be isolated growth restriction with biometry is consistent with 22 2/7 wks with estimated weight of 445 gm. overall 13th with AC at the 3rd percentile. There has been a 70 gm growth since the last anatomy scan There is a 39.7% discordance today (previously noted 38.7%) 2. 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 3. Amniotic fluid appeared normal for both twins. The Intertwin membrane is visualized today easily and bladders are present X 2 as well no evidence of TTTS 4. Two placentas with a thick intervening membrane are noted without evidence of previa. 5. BPP 8/8 X 2 6. Continued intermittent absent EDF of Twin B otherwise normal MCA X 2 and normal UAD Twin A We talked about FGR of Twin B, and the degree of growth from the last scan. Continued IADF of Twin B is noted today and BPP 8/8 x 2. This is stable testing from previous, and this was discussed with the couple. They have had steroids for lung maturity 07/27 and 07/28 and would be a candidate for rescue as well as IV magnesium for neuroprotection if delivery is anticipated. I talked to them today about what they desire for the resuscitative efforts of the twins (since they spoke with yesterday) AND if there are concerns for changes in the Doppler examination of Twin B what desires do they want for both twins if the smaller one is in trouble based upon our ultrasound findings. They understand with monochorionic twins that if there are changes in one twin, specifically requiring admission and possible delivery, that the bystander (A) with a known heart defect may also need to be delivered due to the type of placentation they share. They had a good understanding of the potential concerns for the remainder of the , and ultimately they would intervene on behalf of both if one of the babies is in trouble when I talked to them today after this ultrasound. I gave reassurance that everything is stable today, but if we see persistent absent EDF she may need to be admitted and followed as in inpatient at [facility]. They voiced understanding. I also discussed the case with Dr. Esquivel after I spoke with them to let her know about the findings today and the stability of our examination. The couple also has a good understanding of twice weekly testing and probable delivery at 32 weeks pending further discussion with Dr. Jordan regarding Twin A pulmonary stenosis findings as the progresses. Her asked if Dr. Jordan would be part of our plan for delivery timing, and I said yes he would be as long as there are not underlying OB complications or concerns related to well being of the twins. Our goal is to stay as long as possible for both twins. W will continue to follow closely with monitoring as scheduled. Recommend also following closely in the office given twins and growth restriction due to increased risks for pre-eclampsia, and will recommend to Dr. Esquivel obtaining baseline labs for this. Plan: [facility] Plan of Care Diagnosis: Monochorionic, diamniotic twin gestation with type 3 selective growth restriction of baby B. Intermittent absent end diastolic flow on dopplers 07/26/2022 and again 08/03/22. Twin A: Confirmed pulmonary stenosis on echo. 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 Otherwise, structurally normal heart 07/26/22 Cell free DNA aneuploidy screening is low risk (they are not aware of gender). Declined invasive testing, infection studies, and expanded carrier screening. BMZ give 07-27-22 and 07-28-22 at [place] by OB. Plan: 1. Continued obstetrical care with her primary licensed certified orthotist is recommended with ANNETTA planned for delivery in [place] at 30 weeks 2. Follow up q2 weeks to evaluate biometric parameters and q4 weeks to evaluate anatomy. These are planned with the [facility]. 3. surveillance as follows: twice weekly BPP with weekly UA Doppler assessment beginning at 24 weeks. These are planned with the [facility]() and her primary licensed certified orthotist(BPP or NST) on Mondays. 4. echocardiogram with Pediatric Cardiology has been completed. Follow up scheduled on 09/07/22 5. consultation with Neonatology will be arranged (08-02-22). consultation with CT Surgery de (more content not included)... Normal [facility] Manager State Authentication Interface Message Text [facility] Neonatology Consult Note DOS: 08/02/2022 Reason for consult: mono/di twin gestation, IUGR baby B Present for Consult: alaina Hickmana Referring/Prequesting Provider: you History: Alaina is a 32 y.o., female at 24w0d Pertinent Medications: Scheduled Meds: Continuous Infusions: PRN Meds:. Imaging/ labs: Monochorionic, diamniotic twin gestation with type 3 selective growth restriction of baby B. Intermittent absent end diastolic flow on dopplers 07/26/2022. Twin A: Pulmonary valve is thick and dysplastic with an increased flow, suggestive of pulmonary stenosis. 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 Declined invasive testing, infection studies, and expanded carrier screening. BMZ give 07-27-22 and 07-28-22 at [place] by OB. Counseling: Other problems Jaundice Difficulty with oral feeding Possibility of respiratory distress and need for intubation/ surfactant Possible need for sepsis evaluation and antibiotics Length of hospitalization to be determined by gestational age Benefits of Breast milk mother attempted breast feeding her other child with little success but plans to pump and provide breast milk if possible for these twins Location of care: planning to transfer care to [facility] [place] Level of care/resuscitation full Discussed that if infant is small enough, may requiring direct admission to the NICU due to the risk of hypoglycemia and difficulty maintaining temperature, for nutritional and thermoregulatory support. We discussed the possible need for IV fluids/ nutrition depending upon the size of the baby as well as NG/ PO feeds We discussed the potential need for supplementation with formula and the high likelihood of needing fortification of feeds to grow Explained may need the support of heated and humidified isolette to maintain a neutral thermal environment. Discussed that the minimum weight for discharge would be 1800g. Recommendations: Delivery at: [facility] Neonatology to be present at delivery depending upon gestational age, degree of pulmonic valve stenosis of baby A, and degree of IUGR of baby B Please don't hesitate to contact us with any further questions The total patient time of the visit was 45 minutes, >50% counseling/ direct patient care Marysol Worrell MD [facility] Progress Noteon 07-26-2022 Manager State Authentication Interface Message Text New patient 07/27/2022 RE: Alaina Yoder : 1990 AGE: 32 y.o. [facility]#: [id number] Gestational Age: 23 Weeks Delivery Hospital: [facility] Reason for visit: Chief Complaint Patient presents with ECHO Echo- Monochorionic diamniotic twin in second trimester Other indications: Monochorionic diamniotic twin with one of the twin with growth restriction. To rule out any associated structural cardiac defect. There was no evidence of twin-twin transfusion syndrome. There was discrepancy in the growth of the babies. OB History 3 Para 1 Term 1 AB 1 Living 1 SAB 1 IAB Ectopic Multiple Live Births 1 Counseling and/or coordination of care (face to face time in the office/outpatient setting or floor/unit time in the hospital) was greater than 60 minutes which is more than 50% of the total time of 80 minutes spent on the encounter. In addition, the following items were performed before, during, and after this visit: Synthesis of current imaging findings. Results for orders placed or performed in visit on 07/26/22 Echo [facility] [place] [address] [email or web address] Echocardiogram Report M-mode, complete 2D, complete spectral Doppler, and color Doppler PATIENT: Alaina Yoder STUDY DATE/TIME: Jul 26 2022 12:34PM HEIGHT: : 1990 WEIGHT: AGE: 32yr BSA/BMI: / GENDER: F BP: 113 / 70 LOCATION: [facility] REFERRING PHYSICIAN: Shen Clifford Susan K ORDERING PROVIDER: Courtney Clifford READING PHYSICIAN: CHRIS Rosas [employer] SALES REPRESENTATIVE: Leigh Gonzales RDCS SUMMARY: Hillsdale-Di twin , 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 1. Pulmonary valve was thick and dysplastic with an increased flow velocity of 1.4 m/s, suggestive of pulmonary stenosis. There was post stenotic dilation of the the main pulmonary artery, 7.1 mm. No pulmonary regurgitation seen by color flow Doppler. 2. Normal right ventricular size and function. No tricuspid regurgitation. 3. Normal biventricular size and function. 4. No atrioventricular valve regurgitation. 5. The cardiac size was at upper limits of normal. 6. Normally related great arteries. 7. 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 8. Normal systemic and pulmonary venous connections. 9. This study is limited in evaluating minor valve abnormalities, septal defects, partial anomalous pulmonary venous connection, and aortic arch abnormalities. 10. The above findings, including the limitations, were discussed with parents using AHA booklet and using diagrams. All questions were answered. 11. Prognosis of the cardiac findings discussed in detail with parents, father who is general surgeon. Recommendations: follow-up after 4 weeks. REASON FOR EXAM: Hillsdale-Di twins. STUDY AND PROCEDURE DATA: Procedure Description: New ([id number]) . Study status: Routine. Location: lab. Procedure: Transabdominal echocardiography for congenital heart disease evaluation. Patient status: Outpatient. Blood pressure: 113/70 Maternal age: 32yr. : 3. Parity: 1. Expected delivery date: 11/23/2022. Gestational age: 22wk. Trimester: 2nd trimester. FINDINGS: DESCRIPTION Two fetuses are present. Abnormal three vessel view, main pulmonary artery 7.1 mm, aorta 5.9 mm and superior vena cava 3.4 mm. Fetus Twin A (Located on maternal left side in vertex position): The rhythm is sinus rhythm, with a heart rate of 145bpm. The position is vertex. Normal Doppler pattern of the ductus venosus, umbilical artery, and vein. Three vessel cord. ANATOMIC RELATIONSHIPS - Normal visceral situs, with left sided stomach. Left sided cardiac apex (levocardia).Normally related great vessels. VEINS AND ATRIA Atrial septum - There is a patent foramen ovale. There is a [id number] shunt. Left atrium - The atrium is normal in size. Right atrium - The atrium is normal in size. Systemic veins - Inferior vena cava and superior vena cava seen entering normally into the right atrium. Pulmonary veins: There are at least 2 out of 4 pulmonary veins seen entering normally into the left atrium, with normal Doppler pattern. A-V CANAL Tricuspid valve - The valve is structurally normal. - There is normal biphasic inflow spectral Doppler. There is no regurgitation. Mitral valve - The valve is structurally normal. - There is normal b (more content not included)... Normal [facility] Manager State Authentication Interface Message Text Maternal Medicine Consult Date of Service: 07/26/2022 Referring Provider: Shahnaz Pat Primary Care Provider: Tanisha Chen MD Reason for Consult: Dr. Shahnaz Pat requests that Alaina be evaluated due to Monochorionic diamniotic twins with selective FGR in twin B. HPI: Alaina is a 32 y.o. at 23w0d gestation who presents for evaluation of Monochorionic diamniotic twins with selective FGR in twin B.. Alaina denies nausea, vomiting, vaginal bleeding, vaginal discharge, and/or cramping. OB History Para Term AB Living 3 1 1 0 1 1 SAB IAB Ectopic Multiple Live Births 1 0 0 0 1 # Outcome Date GA Lbr Edson/2nd Weight Sex Delivery Anes PTL Lv 3 Current 2 SAB 11/2021 6w0d SAB 1 Term 09/03/17 38w0d 3.374 kg M Vag-Spont EPI N MARJORIE Name: Pawan History reviewed. No pertinent past medical history. Past Surgical History: Procedure Laterality Date BREAST ENHANCEMENT SURGERY Bilateral HIP SURGERY Right labrum repair Allergies Allergen Reactions Vancomycin Itching and Other (See Comments) Red man syndrome Social History Socioeconomic History Marital status: Unknown Spouse name: None Number of children: None Years of education: None Highest education level: None Tobacco Use Smoking status: Never Smokeless tobacco: Never Substance and Sexual Activity Alcohol use: Not Currently Comment: occasional social use prior to Drug use: Never Infections Live with someone with or exposed to TB No History of STI's None Rash or viral illness since last menstruation No 2nd STI GBS No 3rd STI Hx of Chicken Pox Yes Had as child Other infections Covid 23 Nov 2021 Partner has hx of genital herpes No Genetics Age is > than 35y as of estimated date No Thalassemia No Neural Tube Defect No Congenital Heart Defect No Down Syndrome No Ramiro-Sachs No Krystyna Disease No Sickle Cell Disease or Trait No Hemophilia, Thrombophilia No Muscular Dystrophy No Cystic Fibrosis No Ashmore's Chorea No Intellectual Disability/Autism No Metabolic Disorder No Recurrent Loss, or a Stillbirth No Inherited Genetic or Chromosomal Disorder No Illicit; Rec.drugs; Alcohol since last menses No Family History Problem Relation Age of Onset No known problems Sister No known problems Son Outpatient Encounter Medications as of 07/26/2022 Medication Sig Dispense Refill docusate sodium (COLACE) 100 MG CAPS capsule Take 1 Capsule (100 mg) by mouth daily aspirin EC 81 MG tablet Take 81 mg by mouth daily folic acid (FOLVITE) 800 MCG TABS Take 800 mcg by mouth daily AQ-Sgd-IX-Grandview-3 ( GUMMIES/DHA & FA PO) Take 2 Chewable Tab by mouth daily Doxylamine Succinate, Sleep, 25 MG TABS Take 25 mg by mouth nightly at bedtime (Patient not taking: No sig reported) ondansetron (ZOFRAN-ODT) 4 MG disintegrating tablet Take 4 mg by mouth every 4 hours as needed (Patient not taking: No sig reported) pyridoxine (VITAMIN B-6) 25 MG TABS Take 25 mg by mouth daily (Patient not taking: No sig reported) No facility-administered encounter medications on file as of 07/26/2022. Review of Systems Constitutional: Negative. HENT: Negative. Eyes: Negative. Respiratory: Negative. Cardiovascular: Negative. Gastrointestinal: Negative. Genitourinary: Negative. Musculoskeletal: Negative. Skin: Negative. Neurological: Negative. Endo/Heme/Allergies: Negative. Psychiatric/Behavioral: Negative. PHYSICAL EXAM: BP 119/88 Wt 71.6 kg (157 lb 12.8 oz) LMP 02/16/2022 BMI 23.99 kg/m Constitutional: General: She is active. HENT: Head: Atraumatic. Eyes: Extraocular Movements: EOM normal. Conjunctiva/sclera: Conjunctivae normal. Pulmonary: Effort: Pulmonary effort is normal. Abdominal: Comments: gravid uterus Musculoskeletal: Normal range of motion. Neurological: Mental Status: She is alert. X 3. Laboratory Test Results: No results found for any previous visit. Ultrasound Results: - Please see Ultrasound test for full details. Assessment/Plan: Alaina Yoder is a 32 y.o. at 23w0d with: Active Non-Hospital Problems Diagnosis Date Noted Intrauterine growth restriction affecting antepartum care of mother in second trimester, fetus 2 07/20/2022 1. Monochorionic diamniotic twin gestation at 22w 6d by clinical DEWEY. 2. Fetus A: - Previously noted thick NT. - AGA. - Previously noted normal anatomy. - Normal amniotic fluid. - Umbilical Doppler is normal. - MCA Dopplers is normal. 3. Fetus B: - Type 3 s FGR (AC at the 8 th% and intermittent AEDF is noted today) - Previously noted normal anatomy. - Velamentous insertion of the umbilical cord. - US shows AEDF. - Normal MCA DOpplers. - Normal amniotic fluid. 4. Inter twin EFW discordance is 38.7%. 5. No evidence of twin-twin transfusion is noted. MCA and UA Dopplers performed to evaluate for risks o (more content not included)... Normal [facility] Progress Noteon 05-04-2022 Manager State Authentication Interface Message Text Alaina Yoder was seen on at [facility] Maternal Medicine to discuss the ultrasound finding of Thickened nuchal fold on Twin A History At the time of the visit Alaina was 32 y.o. with EDC 11/27/22, Hillsdale/di twins at 11 weeks by LMP and early ultrasound dating. Ultrasound Findings Twin A NT 2.75mm Twin B NT 0.86mm Family and Medical History 1 Term without issues 1 SAB Pt has not had any NIPT with this Thickened nuchal fold information provided and discussed treatment team follow up, MFM consultation [facility]t [facility] on 05/22/22 @ 8:45am. Directions to office provided The total patient time of the visit was 15 minutes: 10 direct patient care, 5minutes chart review and documentation. Normal [facility] Encounters Encounter Date Encounter Type Care Provider Facility Start: 09-25-2022 End: 09-25-2022 ambulatory [facility] Start: 09-13-2022 End: 09-14-2022 Evaluation and management of inpatient TY Hairston [facility] Start: 09-11-2022 End: 09-12-2022 Evaluation and management of inpatient TY Hairston [facility] Start: 09-08-2022 End: 09-09-2022 Evaluation and management of inpatient TYKARLIE Hairston [facility] Start: 09-06-2022 End: 09-07-2022 Evaluation and management of inpatient TYKARLIE Hairston [facility] Start: 09-04-2022 End: 09-04-2022 ambulatory [facility] Start: 09-04-2022 End: 09-05-2022 Evaluation and management of inpatient TY Hairston [facility] Start: 08-24-2022 End: 09-16-2022 Evaluation and management of inpatient Ty [facility] Start: 08-24-2022 ambulatory [facility] Start: 08-21-2022 End: 08[facility]: 08-17-[facility]22 End: 08-17-2022 ambulatory SHAHNAZ Urmila [facility] Start: 08-15-2022 ambulatory Ty Welches [facility] Start: 08-15-2022 End: 08-15-2022 Subsequent hospital visit by physician Ty Hoffmann MD Work Phone: [facility] Comment on above: Arrived Start: 08-14-2022 End: 08-14-2022 ambulatory RAQUEL OCHOA [facility] Start: 08-10-2022 End: 08-10-2022 ambulatory [facility] Start: 08-03-2022 End: 08-03-2022 ambulatory TY [facility] Start: 08-02-2022 End: 08-02-2022 ambulatory [facility] Start: 07-26-2022 End: 07-26-2022 ambulatory MARIANNE JORDAN [facility] Start: 07-26-2022 End: 07-26-2022 ambulatory [facility] Start: 07-20-2022 End: 07-20-2022 ambulatory [facility] Start: 07-13-2022 End: 07-13-2022 ambulatory [facility] Start: 07-03-2022 End: 07-03-2022 ambulatory [facility] Start: 06-26-2022 End: 06-26-2022 ambulatory [facility] Start: 06-22-2022 End: 06-22-2022 [facility] Start: 06-05-2022 End: 06-05-2022 ambulatory [facility] Start: 05-19-2022 End: 05-19-2022 ambulatory [facility] Start: 05-04-2022 End: 05-04-2022 [facility] Procedures Date Procedure Procedure Detail Performing Clinician Start: 08-15-2022 RADIOLOGY REPORT Physic ubrak Generic Start: 08-15-2022 End: 08-15-2022 Us preg uterus real time f/u trnsabdl per fetus Guero Lozano MD Work Phone: Plan of Treatment Date Care Activity Detail Author Start: 06-05-2022 Influenza vaccination Flu vaccine (# 1) [facility] Start: 2022 Screening for malign ant neoplasm of cervix [facility] Start: 2013 Screening for malign ant neoplasm of cervix Pap smear [facility] Start: 2011 DTaP/Tdap/Td vaccine (1 - Tdap) DTaP/Tdap/Td vaccine (1 - Tdap) [facility] Start: 2010 Hepatitis C screening Hepatitis C sc reen [facility] Start: 2007 HIV screening HIV screen [facility] Start: 2004 Depression Screen Depression Screen [facility] Start: 1993 Varicella vaccine (1 of 2 - 2-dose childhood series) Varicella vaccine (1 of 2 - 2-dose childhood series) [facility] Start: 1992 COVID-19 Vaccine (#1) COVID-19 Vacci ne (#1) [facility] End: 08-15-2022 US DOPPLER UMBILICAL ARTERY [facility] Work Phone: Comment on above: Once for 1 Occurrenc es starting 08/15/2022 until 08/15/2022 Payers Date Payer Category Payer Private Health Insurance [id number] 1990 Unknown [id number] 2.16. [id number] 1990 Unknown [id number] 2.16. 840.1.782890.3.579.2 1990 Unknown [id number] 2.. 840.1.819537.3.579.2 1990 Unknown [id number] 2.16. 840.1.386236.3.579.2 1990 Unknown [id number] 2.16. 840.1.118760.3.579.2 1990 Unknown [id number] 2.16. 840.1.052887.3.579.2 1990 Unknown [id number] 2.16. 840.1.136638.3.579.2 1990 Unknown [id number] 2.16. 840.1.148131.3.579.2 1990 Unknown [id number] 2.16. 840.1.772134.3.579.2 1990 Unknown [id number] 2.16. 840.1.917544.3.579.2 1990 Unknown [id number] 2.16. 840.1.387908.3.579.2.47 1990 Unknown [id number] 2.16. 840.1.411361.3.579.2 1990 Unknown [id number] 2.16. 840.1.836898.3.579.2 1990 Unknown [id number] 2.16. 840.1.842496.3.579.2 1990 Unknown [id number] 2.16. 840.1.950255.3.579.2 1990 Unknown [id number] 2.16. 840.1.174572.3.579.2 1990 Unknown [id number] 2.16. 840.1.194214.3.579.2 1990 Unknown [id number] 2.16. 840.1.064823.3.579.2 1990 Unknown [id number] 2.16. 840.1.931364.3.579.2 1990 Unknown [id number] 2.16. 840.1.891660.3.579.2 1990 Unknown [id number] 2.16. 840.1.041737.3.579.2 1990 Unknown [id number] 2.16. 840.1.400371.3.579.2 1990 Unknown [id number] 2.16. 840.1.166971.3.579.2 1990 Unknown [id number] 2.16. 840.1.301865.3.579.2 Private Health Insurance Social History Date Type Detail [facility] Work Phone: Start: 1990 Sex Assigned At Not on file [employer] Work Phone: Clinical Notes 05-19-2022 to 09-16-2022 Note Date & Type Note Facility 09-16-2022 Note Pt declines watching SUSY videos, states will view them later and will get education at [facility]. [facility] 09-14-2022 Note Department of Obstet rics and Gynecology Delivery Discharge Summary Admission on 08/24/2022 8:30 PM Reason for admission: FGR baby B with AEDF Intrapartum Course: 32 yo admitted at 27 wk due to FGR baby B. She received steroids and baby B was found found to have AEDF during admission. At 29w6d baby B had multiple prolonged decelerations and she was given Magnesium sulfate for neuroprotection and she was delivered via pLTCS. 30w0d PC-01 Indications for Delivery: Was patient delivered between 37w0d - [id number]? No Surgical Operations & Procedures: Date of delivery: 09/13/22 Delivery Type: , Low Transverse Anesthesia: Spinal anesthesia Laceration(s): n/a Delivery Complications: none EBL: 800 cc Pertinent Findings & Procedures: Information for the patient's : Aurea Yoder [[id number]] male No weight on file. Information for the patient's : Ines Yoder [[id number]] male No weight on file. Apgars: Information for the patient's : Aurea Yoder [[id number]] Information for the patient's : Ines Yoder [[id number]] Course: Uncomplicated : male infant x2 to the NICU Blood Type/Rh: O Antibody Screen: No results found for: LABANTI Rubella: No results found for: RUBELLAIGG Contraception: ParaGard IUD placed : yes VTE Prophylaxis: Prophylactic Dosing until Discharge Meds: Your medication list START taking these medications Instructions Last Dose Given Next Dose Due ibuprofen 600 MG tablet Take 1 tablet (600 mg) by mouth every 6 hours as needed for mild pain (1-3) for up to 10 days. oxyCODONE 5 MG immediate release tablet Commonly known as: Roxicodone Take 1 tablet (5 mg) by mouth every 6 hours as needed for moderate pain (4-6) for up to 5 days. CONTINUE taking these medications Instructions Last Dose Given Next Dose Due DSS 100 MG capsule polyethylene glycol (PEG) 3350 17 GM/SCOOP powder Commonly known as: Glycolax STOP taking these medications aspirin 81 MG EC tablet folic acid 800 MCG tablet Commonly known as: Folvite Where to Get Your Medications These medications were sent to [facility] [address] [place], [place] [id number] Hours: Sunday to Sunday 10 am to 6 pm ibuprofen 600 MG tablet oxyCODONE 5 MG immediate release tablet Activity: Activity as tolerated Diet: Regular diet If a patient meets criteria for hypertension, make sure the following are done prior to discharge: [] Order a blood pressure kit through [facility] (or the patient's own pharmacy on the weekend) [] Order the blood pressure log through [employer] [] Place a telephone encounter for a 72 hour blood pressure check. Specify that this will be a virtual visit. [] Include blood pressure dot phrase (.sumobhypertension) in discharge instructions [x] Check here if the patient does NOT meet criteria for hypertension Follow up Care: Follow up appointment in 2 weeks. Condition on discharge: Stable Discharge to: Home Discharge date: 09/16/22 Discharge Dx: S/p PLTCS at 29w6d for for cat II FHT baby B History of baby with CHD History of baby with FGR and AEDF Instructions to Patient:: Pelvic Rest (no intercourse, tampons, douching, etc) x 6 weeks Specific discharge instruction printed Twin , monochorionic/diamniotic, third trimester [O30.033] Patient Active Problem List Diagnosis Twin , monochorionic/diamniotic, third trimester Comments: Home care, Follow-up care and control were reviewed. Signs and symptoms of mastitis and Post Depression were reviewed. The patient is to notify her physician if any of these occur. Car Andersen DO on 09/14/2022 at 12:58 AM [facility] 09-14-2022 Note Patient: Alaina putnam Procedure Summary Date: 09/13/22 Room / Location: [facility] Labor and Delivery Anesthesia Start: 2314 Anesthesia Stop: 09/14/2250 Procedure: DELIVERY (Abdomen) Diagnosis: Surgeons: Kailee Wilkinson MD Responsible Provider: HAYLEE Otoole CRNA Anesthesia Type: spinal ASA Status: 2 Anesthesia Type: spinal Vitals Value Taken Time BP 165/81 09/14/2251 Temp 97.5 09/14/2251 Pulse 70 09/14/2251 Resp 16 09/14/2251 SpO2 100 09/14/2251 Anesthesia Post Evaluation Patient location during evaluation: PACU Patient participation: complete - patient participated Level of consciousness: awake and alert Pain management: adequate Airway patency: patent Dental Injury: no Cardiovascular status: acceptable, blood pressure returned to baseline and hemodynamically stable Respiratory status: acceptable and spontaneous ventilation Hydration status: euvolemic Nausea/Vomiting: controlled No notable events documented. Patient can be discharged once all PACU criteria has been met. [facility] 09-14-2022 Note Patient: Alaina putnam Procedure Summary Date: 09/13/22 Room / Location: [facility] Labor and Delivery Anesthesia Start: 2314 Anesthesia Stop: 09/14/2250 Procedure: DELIVERY (Abdomen) Diagnosis: Surgeons: Kailee Wilkinson MD Responsible Provider: HAYLEE Otoole CRNA Anesthesia Type: spinal ASA Status: 2 Anesthesia Type: spinal Vitals Value Taken Time BP 165/81 09/14/2250 Temp 97.5 09/14/2250 Pulse 70 09/14/2250 Resp 16 09/14/2250 SpO2 100 09/14/2250 Anesthesia Post Evaluation Patient location during evaluation: PACU Patient participation: complete - patient participated Level of consciousness: awake and alert Pain management: satisfactory to patient Multimodal analgesia pain management approach Airway patency: patent Cardiovascular status: acceptable and hemodynamically stable Respiratory status: acceptable Hydration status: acceptable No notable events documented. Anesthesia Post Evaluation I completed my handoff to the receiving clinician during which we: 1. Identified the patient 2. Identified the responsible provider 3. Reviewed the pertinent medical history 4. Discussed the surgical course 5. Reviewed intra-op anesthesia management and issues during anesthesia 6. Set expectations for post-procedure period 7. Allowed opportunity for questions and acknowledgement of understanding. [facility] 09-14-2022 Note Peripheral Block Start time: 09/14/2022 12:30 AM End time: 09/14/2022 12:34 AM Time Out: 09/14/2022 12:30 AM Reason for block: at surgeon's request and post-op pain management Staffing Performed: FLIGHT CREW TIME CLERK Resident/FLIGHT CREW TIME CLERK: HAYLEE Otoole CRNA Preanesthetic Checklist Completed: patient identified, IV checked, site marked, risks and benefits discussed, surgical consent and timeout performed Region: Truncal Primary: TAP Peripheral Block Laterality: bilateral Injection technique: single-shot Additional Notes 09/14/2022 12:30 AM Assessment Injection assessment: negative aspiration for heme, no paresthesia on injection and incremental injection Heart rate change: no Slow fractionated injection: yes [facility] 09-14-2022 Note Spinal Block Patient location during procedure: OB Start time: 09/13/2022 11:17 PM End time: 09/13/2022 11:22 PM Time Out: 09/13/2022 11:18 PM Reason for block: procedure for pain Staffing Performed: FLIGHT CREW TIME CLERK Resident/FLIGHT CREW TIME CLERK: HAYLEE Otoole CRNA Preanesthetic Checklist Completed: patient identified, IV checked, site marked, risks and benefits discussed, surgical consent, monitors and equipment checked, pre-op evaluation and timeout performed Spinal Block Patient position: sitting Prep: ChloraPrep Sterility prep: drape Approach: midline Location: L3-4 Injection technique: single-shot Needle Needle type: pencil-tip Needle gauge: 25 G Assessment Sensory level: T4 [facility] 09-14-2022 Note Patient: Alaina putnam Procedure Information Date: 09/02/22 Procedure: Labor Analgesia Relevant Problems No relevant active problems Clinical information reviewed: Physical Exam Airway Mallampati: II TM distance: >3 FB Neck ROM: full Cardiovascular Dental Pulmonary Abdominal Anesthesia Plan ASA 2 spinal The patient is not a current smoker. Patient was not previously instructed to abstain from smoking on day of procedure. Anesthetic plan and risks discussed with patient. patient is not NPO Additional Equipment Requests [facility] 09-07-2022 Note Patient: Alaina putnam Procedure Information Date: 09/02/22 Procedure: Labor Analgesia Relevant Problems No relevant active problems Clinical information reviewed: Allergies Meds Physical Exam Airway Mallampati: II TM distance: >3 FB Neck ROM: full Cardiovascular Dental - normal exam Pulmonary Abdominal Anesthesia Plan ASA 2 epidural The patient is not a current smoker. Patient was not previously instructed to abstain from smoking on day of procedure. Patient did not smoke on day of procedure. Anesthetic plan and risks discussed with patient. Additional Equipment Requests [facility] 09-07-2022 Note Patient: Alaina putnam Procedure Summary Date: 09/02/22 Room / Location: Anesthesia Start: Anesthesia Stop: Procedure: Labor Analgesia Diagnosis: Scheduled Providers: Responsible Provider: Anesthesia Type: Not recorded ASA Status: Not recorded Anesthesia Type: No value filed. Vitals Value Taken Time BP 130/79 09/07/22 0742 Temp 37.3 09/07/22 0742 Pulse 84 09/07/22 0742 Resp 18 09/07/22 0742 SpO2 97 09/07/22 0742 Anesthesia Post Evaluation No notable events documented. Patient can be discharged once all PACU criteria has been met. [facility] 08-15-2022 Note MFM follow up after ultrasound at [facility] Evaluation today due to the possibility of persistent AEDF visualized on recent scan. See my previous phone documentation, FTC plan updated today as well The patient reports no OB complaints and reports endorsing movements separately on both fetuses -no changes. She is here by herself and her is automation manager in [place] Today's findings discussed after her scan was performed: 1. Monochorionic dichorionic twin gestation at 25w 5d by clinically established DEWEY and previous scans performed at [facility] last growth performed on 08/03/22 Growth today Twin A 957g (previously 739g) and Twin B known FGR 548g (previously 445g) there is a 43% discordance, previously noted to be 39.7% 2. Discordant growth with known Twin B FGR and prior IAEDF now with forward flow and no AEDF 3. Normal UA Doppler assessment for both twins. 4. Normal BPP and amniotic fluid volume for both twins. No signs of TTTS and bladders easily visualized X 2 today 5. 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 The discordance is now 43% given the interval growths of both, but discussed that the FGR fetus is continuing to demonstrate ongoing interval growth as well We talked about follow up as follows: Twice weekly BPP with UAD of both on both days (Sunday and ) okay to schedule as many as possible in [place] if stable as outpatient may need NST if any concerns Recommend BP cuff and taking BP on regular interval with watching for signs and symptoms of pre-eclampsia which was reviewed today, she is to call with concerns of BP 140/90, concerns for headache, visual changes, increased swelling, RUQP and any epigastric concerns as well as decreased movements or concerns for labor. She may need to be evaluated in [place] and get transferred accordingly and this was discussed Inpatient admission at [facility] and repeat rescue steroids/Magnesium for neuroprotection if concerns for persistent AEDF, pre-eclampsia or labor or any concerns related to testing of either baby She desires to ANNETTA at the recommendation of Dr. Esquivel and will plan this for the next week in [place]. She does not desire to wait until 30 weeks Continued ongoing as long as safe for both fetuses and Mother given the concerns of Twin A with known heart defect and Twin B with FGR and ongoing discordance in the face of MCDI twins. The patient understands things may change and she may require ongoing inpatient management/indicated delivery and currently is stable today She reiterated today with her delivery timing/planning if stable to include Dr. Jordan's input and may need to have a multidisciplinary meeting at the request of the family with hopes if stable to be delivered at 32-34 6/7 weeks based upon ACOG medical indications guidelines for FGR with MCDI twins, but again this is an ongoing dynamic plan as the advances Questions answered and will continue to follow. Will keep her scheduled appointment on with growth again (desire to see comparison growth chart and curve of FGR fetus in [facility]) and will schedule ANNETTA and Twice weekly testing with twice weekly [facility] Plan of Care as of 08/15/22 Diagnosis: Monochorionic, diamniotic twin gestation with type 3 selective growth restriction of baby B. Intermittent absent end diastolic flow on dopplers 07/26/2022 and 08/03/22. Twin A: Confirmed pulmonary stenosis on echo. 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 Otherwise, structurally normal heart 07/26/22 Cell free DNA aneuploidy screening is low risk. Declined invasive testing, infection studies, and expanded carrier screening. BMZ give 07-27-22 and 07-28-22 at [place] by OB. Plan: 1. Continued obstetrical care with her primary licensed certified orthotist is recommended. (ANNETTA scheduled for 30 weeks, patient desires sooner see note from 08/15/22) 2. Follow up q2 weeks to evaluate biometric parameters and q4 weeks to evaluate anatomy. These are planned with the [facility]. 3. surveillance as follows: twice weekly BPP with twice weekly UA Doppler assessments given IAEDF. These are to be planned with the [facility] and Mondays. She wishes as many to be scheduled in [place] if outpatient 4. echocardiogram with Pediatric Cardiology has been completed. Follow up echo scheduled on 09/06/2022 5. consultation with Neonatology has been completed. consultation with CT Jame (more content not included)... [facility] 05-19-2022 Note Alaina was seen f or consultation regarding monochorionic diamniotic twin . Multifetal gestations are associated with an increased risk of maternal, and infant morbidity and mortality compared to moyer gestations. Maternal risks include: hyperemesis, gestational diabetes, hypertension, anemia, hemorrhage, delivery and depression. risks include: twin-twin transfusion syndrome (we reviewed 15% risk, may be a little highter with discordant NT), congenital anomalies, , growth restriction and stillbirth. risks are largely related to prematurity and include: intraventricular hemorrhage, periventricular leukomalacia, cerebral palsy and . Due to these increased risk, women with a twin should be followed closely for complications. screening options include serum screening (although this is not as sensitive compared to screening a moyer ), nuchal translucency with serum screening and diagnostic testing ([facility] or amniocentesis). Women carrying multiple gestations should increase their daily dietary intake by about 300 kcal above that for a moyer , or 600 kcal over that of a non woman. BMI 18.5 to 24.9 kg/m2 (normal weight) - weight gain 37 to 54 lbs (16.8 to 24.5 kg) Nutritional supplement should include: vitamin with iron (30 mg) one daily in the first trimester, then 2 daily until delivery (total iron 30 mg in the first trimester, then 60 mg until delivery) Folic acid 1 mg throughout Calcium 1000 mg daily Vitamin D supplementation if deficient R30 y.o. 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 Discordant NT measurements increase the risk of TTTS. 2. Amniotic fluid assessment starting at 16 weeks and continuing every week from 16-26 weeks, Q 2 weeks form 26-32 weeks. Weekly BPP 32 weeks - delivery. 3. growth assessment every 4 weeks. 4. anatomy survey between 18-20 weeks for best visualization of anatomy. 5. echocardiogram between 20-22 weeks gestation. 6. Delivery at 36 0/7 - 37 0/7 weeks (or sooner if indicated). Nuchal fold thickening determined by ultrasound 05/04/2022 - Discordant NT -Resolved at 13 weeks See genetic consult letter. The total patient time of the visit was 30 minutes, 15 in direct patient care 15 chart prep and completion [facility] Summary Purpose Family History No Family History Records FoundNo Family History Records FoundNo Family History Records Found Advance Directives No Advanced Directives Records FoundNo Advanced Directives Records FoundNo Advanced Directives Records Found Additional Source Comments INFORMATION SOURCE (unrecogn ized section and content) DATE CREATED AUTHOR 09/02/2022 [employer] DATE CREATED AUTHOR AUTHOR'S ORGANIZ ATION [facility]/2022 [facility] DATE CREATED AUTHOR AUTHOR'S ORGANIZ ATION 09/25/2022 [facility] FOR RECORDS PERTAINING TO PATIENTS WHO ARE OR HAVE BEEN ENROLLED IN A CHEMICAL DEPENDENCY/SUBSTANCEABUSE PROGRAM, SOME INFORMATION MAY BE OMITTED. This clinical summary was aggregated from multiple sources. Caution should be exercised in using it in the provision of clinical care. This summary normalizes information from multiple sources, and as a consequence, information in this document may materially change the coding, format and clinical context of patient data. In addition, data may be omitted in some cases. CLINICAL DECISIONS SHOULD BE BASED ON THE PRIMARY CLINICAL RECORDS. [employer] provides no warranty or guarantee of the accuracy or completeness of information in this document.
[2024-08-27 15:36] LABS: Alanine Aminotransfer ALT/SGPT 26 U/L (13-56)
[2024-08-28 02:47] LABS: HIV - WCH Non-Reactive (Nonreactive); Hepatitis B Surface Antibody Reactive; Hepatitis C Antibody Non-Reactive (Nonreactive)
== END | disposition home or self-care (01) ==
LOC: MTLAB 11:29
PROVIDERS: PCP Internal Medicine; Referring Provider Physician Assistant; Visit Provider Physician Assistant
DX: S61.031A Puncture wound without foreign body of right thumb without damage to nail, initial encounter (principal); W46.1XXA Contact with contaminated hypodermic needle, initial encounter
CPT/HCPCS: 36415; 84460; 86703; 86706; 86803

== ENCOUNTER 2024-11-17 09:42 | Outpatient (CLI) | payer OTHER, SELFPAY ==
--- NOTE | 2024-11-17 10:00 | RAD_ITS ---
STUDY: SHOULDER ARTHROGRAM RIGHT REASON FOR EXAM: Female, 34 years old. Right shoulder pain. FLUOROSCOPY TIME (if supplied): ( 1 minute and 19 seconds. ) minutes/seconds. 7.22 mGy. 5 images were submitted. TECHNIQUE: The procedure as well as the benefits and possible complications including infection and bleeding were explained to the patient. Informed consent was obtained COMPARISON: None. FINDINGS: Under direct fluoroscopic guidance, puncture of the right shoulder joint was performed. 2 cc of Isovue 300 was injected for confirmation. Following this, 10 cc of dilute contrast was administered. RAD/Arthrogram Shoulder w/ MRI IMPRESSION: Right shoulder arthrogram for MRI examination. Electronically Signed: Damaso Khan MD at 10:53 EST ,
--- NOTE | 2024-11-17 10:07 | MRI_ITS ---
STUDY: MRI ARTHROGRAM OF THE RIGHT SHOULDER REASON FOR EXAM: Female, 34 years old. PAIN IN SHOULDER WITH MOVEMENT PAST MIDLINE AND OVERHEAD TECHNIQUE: 7.5 cc dilute Clariscan contrast was injected into the right glenohumeral joint. MRI was obtained in all 3 orthogonal planes. In addition, a fat-suppressed T1-weighted sequence was performed with the patient''s arm in the abduction external rotation (ABER) position. COMPARISON: None. FINDINGS: Normal supraspinatus tendon. Normal infraspinatus tendon. Normal subscapularis tendon. Normal teres minor tendon. Normal supraspinatus muscle. Normal infraspinatus muscle. Normal subscapularis muscle. Normal teres minor muscle. Normal glenohumeral articulation. Normal humeral head and visualized proximal humerus. Normal biceps labral complex. Normal intracapsular long biceps tendon. Normal labrum. Normal capsulo-ligamentous complex. Normal rotator interval. Normal acromioclavicular articulation. There is a Type II morphology (curved), with a neutral orientation. There is no subacromial-subdeltoid bursal fluid. Normal visualized coracohumeral and coracoacromial ligaments. Normal quadrilateral space. Normal axillary space. Normal deltoid muscle. Normal trapezius muscle. MRI/Upper Ext Jt Only W/Contrast IMPRESSION: No rotator cuff tear or discrete labral tear. Electronically Signed: Julien Dunn MD at 12:24 [facility] [place] ,
[2024-11-17] MEDS: Lidocaine 2% (5ml sdv) 5 ML VIAL.MPF INFILT (10:22)
[2024-11-17] MEDS: Iopamidol 10 ML in Syringe 1 EACH 600 ML INTRAARTIC (10:25)
[2024-11-17] MEDS: Gadoterate Meglumine Diluted 10 ML, Iopamidol 5 ML, Lidocaine 1% (20 ml mdv) 5 ML, Epin... INTRAARTIC (10:26)
== END 2024-11-17 23:59 | disposition home or self-care (01) ==
LOC: RAD 09:44
PROVIDERS: PCP Internal Medicine; Referring Provider Orthopaedic Surgery; Visit Provider Orthopaedic Surgery
DX: M25.511 Pain in right shoulder (principal)
CPT/HCPCS: 23350; 73222; 77002; Q9967

== ENCOUNTER → 2025-02-23 | Outpatient (CLI) | payer OTHER, SELFPAY ==
[2025-02-23 16:28] LABS: Absolute Lymphocyte Count 2.07 X10^3/uL (0.83-4.51); Absolute Neutrophil Count 7.8 X10^3/uL (2.0-7.7); Basophil# 0.03 X10^3/uL; Basophil% 0.3 % (0-1); Eosinophil# 0.13 X10^3/uL; Eosinophils% 1.2 % (0-5); Hematocrit 42.3 % (37-47); Hemoglobin 14.5 g/dL (12.0-15.0); Lymphocyte # 2.07 X10^3/ul (0.83-4.51); Lymphocyte % 19.3 % (19-41); Mean Corp Hgb Conc 34.3 g/dL (32-36); Mean Corpuscular Hgb 31.6 pg (27.0-32.0); Mean Corpuscular Volume 92.2 fL (81-99); Mean Platelet Vol. 9.8 fl (6.2-12.0); Monocyte# 0.65 X10^3/uL; Monocyte% 6.1 % (0-10); NRBC Flagged by Analyzer 0 % (0-5); Neutrophil # 7.82 X10^3/uL (2.7-7.7); Neutrophil % 72.7 % (47-70); Platelet Count 298 K/mm3 (150-450); RBC Distribution Width CV 13.3 % (11.6-14.6); RBC Distribution Width SD 45.3 fl (35.1-43.9); Red Blood Count 4.59 M/mm3 (4.2-5.4); White Blood Count 10.7 K/mm3 (4.4-11.0)
[2025-02-23 17:45] LABS: ALB/GLOB Ratio 1.6 RATIO (0.9-2.4); AST(SGOT) 20 U/L (<=31); Alanine Aminotransfer ALT/SGPT 16 U/L (<=34); Albumin, Serum 4.4 g/dL (3.5-5.0); Alkaline Phosphatase 47 U/L (35-104); Anion Gap 10 (5-15); BUN 21 mg/dL (4-19); Calcium,Total 9.6 mg/dL (7.6-11.0); Carbon Dioxide 25.4 mmol/L (21.0-32.0); Chloride 103 mmol/L (98-108); Creatinine, Serum 0.86 mg/dL (0.70-1.20); EST Glomerular Filtration Rate 92 (>60); Globulin 2.7 g/dL (2.2-4.2); Glucose 91 mg/dL (70-99); Protein, Total 7.1 g/dL (5.9-8.4); Sodium Level 139 mmol/L (133-145)
== END | disposition home or self-care (01) ==
LOC: BIMLAB 14:55
PROVIDERS: PCP Internal Medicine; Referring Provider Internal Medicine; Visit Provider Internal Medicine
DX: Z00.00 Encounter for general adult medical examination without abnormal findings (principal)
CPT/HCPCS: 36415; 80053; 85025

== ENCOUNTER → 2025-09-11 | Outpatient (CLI) | payer OTHER, SELFPAY ==
[2025-09-11 09:49] LABS: Hematocrit 43.0 % (37-47); Hemoglobin 14.9 g/dL (12.0-15.0); Mean Corp Hgb Conc 34.7 g/dL (32-36); Mean Corpuscular Volume 93.3 fL (81-99); Mean Platelet Vol. 9.6 fl (6.2-12.0); Platelet Count 262 K/mm3 (150-450); RBC Distribution Width CV 13.0 % (11.6-14.6); RBC Distribution Width SD 44.8 fl (35.1-43.9); Red Blood Count 4.61 M/mm3 (4.2-5.4); White Blood Count 5.8 K/mm3 (4.4-11.0)
[2025-09-11 10:22] LABS: AST(SGOT) 18 U/L (<=31); Alanine Aminotransfer ALT/SGPT 11 U/L (<=34); Albumin, Serum 4.2 g/dL (3.5-5.0); Alkaline Phosphatase 47 U/L (35-104); Anion Gap 8 (5-15); BUN 21 mg/dL (4-19); BUN/Creat Ratio 21.3 RATIO (10-20); Calcium,Total 9.4 mg/dL (7.6-11.0); Carbon Dioxide 25.6 mmol/L (21.0-32.0); Chloride 105 mmol/L (98-108); Globulin 2.7 g/dL (2.2-4.2); Glucose 94 mg/dL (70-99); Magnesium 2.0 mg/dL (1.5-2.2); Potassium 4.6 mmol/L (3.3-5.1); T4 Total, Thyroxin 5.5 ug/dL (4.8-13.9)
== END | disposition home or self-care (01) ==
LOC: LAB 08:43
PROVIDERS: PCP Internal Medicine; Referring Provider Physician Assistant; Visit Provider Physician Assistant
DX: R00.2 Palpitations (principal)
CPT/HCPCS: 36415; 80053; 83735; 84436; 84443; 85027